=== PATIENT | female | born 2000 | race Caucasian/White ===

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

== ENCOUNTER 2018-01-14 00:14 | Emergency (ER) | payer OTHER ==
[2018-01-14 00:25] VITALS: RESP 16
--- NOTE | 2018-01-14 00:41 | ED ---
General Adult HPI - General Source: patient, RN notes reviewed, old records reviewed Mode of arrival: ambulatory Limitations: no limitations <Anthony Frank - Last Filed: 01/14/18 00:37> <Scottie Sears - Last Filed: 01/14/18 01:46> - General Chief complaint: ENT Stated complaint: Throat Pain Time Seen by Provider: 01/14/18 00:26 - History of Present Illness Initial comments: Chief complaint and history of present illness a 17-year-old female here with a friend. The patient reports she has a sore throat ongoing for 24 hours. Mild headache mild upset stomach. Also thinks she saw some white dots on her tonsils. She states she's had for 5 throat infections over the past year. No complaint of rash. Denies exposure to anyone with strep throat that she knows about. (Anthony Frank) - Related Data Previous Rx's Medication Instructions Recorded Ibuprofen 400 mg PO AC-TID PRN #30 tablet 04/25/17 Omeprazole [PriLOSEC] 20 mg PO AC-BRKFST #30 cap 04/25/17 Ibuprofen [Motrin] 600 mg PO Q6HR PRN #12 tab 11/25/17 Allergies Allergy/AdvReac Type Severity Reaction Status Date / Time morphine Allergy Rash/Hives Verified 01/14/18 00:24 cigarette smoke AdvReac Unknown Verified 01/14/18 00:24 Review of Systems ROS Other: All systems not noted in ROS Statement are negative. <Anthony Frank - Last Filed: 01/14/18 00:37> ROS Other: All systems not noted in ROS Statement are negative. <Scottie Sears - Last Filed: 01/14/18 01:46> ROS Statement: Those systems with pertinent positive or pertinent negative responses have been documented in the HPI. Review of systems; patient is complaining of sore throat for 1 day. Mild headache mild upset stomach. Denies nausea vomiting or rashes. All systems are reviewed. Past medical problems significant for 4 more sore throats his past year. The patient's also had a history of GERD, stomach ulcers. Surgeries include cholecystectomy and hernia repair she's had EGD 5 times. Medications as noted. ALLERGIES to morphine and cigarette smoke. Family history noncontributory. All systems reviewed (Anthony Frank) Past Medical History Past Medical History: GERD/Reflux Additional Past Medical History / Comment(s): stomach ulcers, UTI, kidney stones , kidney infection History of Any Multi-Drug Resistant Organisms: None Reported Past Surgical History: Cholecystectomy, Hernia Repair Additional Past Surgical History / Comment(s): EGD x5 Past Anesthesia/Blood Transfusion Reactions: No Reported Reaction Past Psychological History: ADD/ADHD, Anxiety Smoking Status: Never smoker Past Alcohol Use History: None Reported Past Drug Use History: None Reported - Past Family History Mother Family Medical History: Asthma, Hypertension Sister(s) Family Medical History: Thyroid Disorder Father Family Medical History: COPD, Coronary Artery Disease (CAD) <Anthony Frank - Last Filed: 01/14/18 00:37> General Exam Limitations: no limitations <ZacAnthony - Last Filed: 01/14/18 00:37> <KiankeishaScottie - Last Filed: 01/14/18 01:46> - General Exam Comments Initial Comments: General: The patient is awake and alert, in no distress, and does not appear acutely ill. Here with a complaint of sore throat. Vital signs shows temperature 99.4 pulse 85 respiratory rate 16 pulse ox 90% room air blood pressure 120/79 Eye: Pupils are equal, round and reactive to light, extra-ocular movements are intact ; there is normal conjunctiva bilaterally. No signs of icterus. Ears, nose, mouth and throat: There are moist mucous membranes and no oral lesions. Tonsils are mildly enlarged no exudate noted. No evidence of pharyngitis. No trismus. Neck: The neck is supple, there is no tenderness, no anterior cervical lymphadenopathy. Cardiovascular: There is a regular rate and rhythm. No murmur, rub or gallop is appreciated. Respiratory: Lungs are clear to auscultation, respirations are non-labored, breath sounds are equal. No wheezes, stridor, rales, or rhonchi. Gastrointestinal: Soft, non-distended, non-tender abdomen without masses or organomegaly noted. There is no rebound or guarding present. No CVA tenderness. Bowel sounds are unremarkable. Past history of chronic ovarian problems. Back: There is no tenderness to palpation in the midline. There is no obvious deformity. Musculoskeletal: Normal ROM, no tenderness, Neurological: No complaints of dizziness Skin: Skin is warm and dry and no rashes or lesions are noted. Psychiatric: Cooperative, (Anthony Frank) Vital Signs 01/14/18 00:22 Temperature 99.4 F Pulse Rate 85 Respiratory 16 Rate Blood Pressure 120/79 O2 Sat by Pulse 98 Oximetry Medical Decision Making <Anthony Frank - Last Filed: 01/14/18 00:37> <Scottie Sears - Last Filed: 01/14/18 01:46> - Medical Decision Making 17-year-old female with sore throat. Patient's care was signed out at shift change awaiting rapid strep. Rapid strep is negative, patient reevaluated, she is resting comfortably. She does have some erythematous enlarged tonsils. She states she's had at least 6 episodes similar to this in the past. Given the recurrent nature of her symptoms, she will be given ENT follow-up. Return with worsening or changing symptoms. (Scottie Sears) - Lab Data Lab Results 01/14/18 Range/Units 00:55 Group A Strep Rapid Negative (Negative) Disposition <Anthony Frank - Last Filed: 01/14/18 00:37> Is patient prescribed a controlled substance at d/c from ED?: No Time of Disposition: 01:46 <Scottie Sears - Last Filed: 01/14/18 01:46> Clinical Impression: Acute viral pharyngitis Disposition: HOME SELF-CARE Condition: Good Instructions: Strep Throat (ED) Referrals: None,Stated [Primary Care Provider] - 1-2 days Alton Dennison MD [STAFF PHYSICIAN] - 1-2 days
[2018-01-14 02:02] VITALS: BP 113/98; PULSE 82; TEMP 98.2
== END 2018-01-14 01:54 | disposition home or self-care (01) ==
LOC: EC 00:14
DX: J02.9 Acute pharyngitis, unspecified (principal); Z88.5 Allergy status to narcotic agent; Z91.09 Other allergy status, other than to drugs and biological substances
CPT/HCPCS: 87081; 87430; 99283

== ENCOUNTER 2018-01-19 17:17 | Emergency (ER) | payer OTHER ==
--- NOTE | 2018-01-19 19:05 | ED ---
ENT HPI - General Chief complaint: ENT Stated complaint: strep throat-revisit Time Seen by Provider: 01/19/18 18:14 Source: patient, RN notes reviewed, old records reviewed Mode of arrival: ambulatory Limitations: no limitations - History of Present Illness Initial comments: Patient is a 17-year-old female presents emergency department today with reevaluation for sore throat. Patient reports that she has been having symptoms for the past 2 weeks. She is evidence of prior pharyngitis. She states that she's had continued fevers and complains of pain. Patient states that she's had difficulty swallowing. Patient states that she's had no cough. She does complain of some upper respiratory congestion. Patient states that she has had her stand back. She try to follow-up with ENT for questioning that she needs her tonsils removed. The ENT would not accept a referral from her last ER visit one week ago. Patient denies any recent fever, chills, shortness of breath, chest pain, back pain, abdominal pain, nausea vomiting, numbness or tingling, dysuria or hematuria, constipation or diarrhea, headaches or visual changes, or any other current symptoms - Related Data Previous Rx's Medication Instructions Recorded Ibuprofen 400 mg PO AC-TID PRN #30 tablet 04/25/17 Omeprazole [PriLOSEC] 20 mg PO AC-BRKFST #30 cap 04/25/17 Ibuprofen [Motrin] 600 mg PO Q6HR PRN #12 tab 11/25/17 Acetaminophen Tab [Tylenol Tab] 500 mg PO Q6H #20 tablet 01/19/18 Azithromycin [Zithromax] 0 mg PO DIRECTED #6 tab 01/19/18 Ibuprofen [Motrin] 600 mg PO Q8HR PRN #20 tab 01/19/18 Allergies Allergy/AdvReac Type Severity Reaction Status Date / Time morphine Allergy Rash/Hives Verified 01/19/18 17:40 cigarette smoke AdvReac Unknown Verified 01/19/18 17:40 Review of Systems ROS Statement: Those systems with pertinent positive or pertinent negative responses have been documented in the HPI. ROS Other: All systems not noted in ROS Statement are negative. Past Medical History Past Medical History: GERD/Reflux Additional Past Medical History / Comment(s): stomach ulcers, UTI, kidney stones , kidney infection History of Any Multi-Drug Resistant Organisms: None Reported Past Surgical History: Cholecystectomy, Hernia Repair Additional Past Surgical History / Comment(s): EGD x5 Past Anesthesia/Blood Transfusion Reactions: No Reported Reaction Past Psychological History: ADD/ADHD, Anxiety Smoking Status: Never smoker Past Alcohol Use History: None Reported Past Drug Use History: None Reported - Past Family History Mother Family Medical History: Asthma, Hypertension Sister(s) Family Medical History: Thyroid Disorder Father Family Medical History: COPD, Coronary Artery Disease (CAD) General Exam - General Exam Comments Initial Comments: 17-year-old female. Alert and oriented. No acute distress. Limitations: no limitations General appearance: alert, in no apparent distress Head exam: Present: atraumatic, normocephalic, normal inspection Eye exam: Present: normal appearance, PERRL, EOMI. Absent: scleral icterus, conjunctival injection, periorbital swelling ENT exam: Present: normal exam, mucous membranes moist. Absent: normal oropharynx (Erythematous oropharynx. No significant exudates. Enlarged tonsils.) Neck exam: Present: normal inspection. Absent: tenderness, meningismus, lymphadenopathy Respiratory exam: Present: normal lung sounds bilaterally. Absent: respiratory distress, wheezes, rales, rhonchi, stridor Cardiovascular Exam: Present: regular rate, normal rhythm, normal heart sounds. Absent: systolic murmur, diastolic murmur, rubs, gallop, clicks Extremities exam: Present: normal inspection, full ROM, normal capillary refill. Absent: tenderness, pedal edema, joint swelling, calf tenderness Back exam: Present: normal inspection Neurological exam: Present: alert, oriented X3, CN II-XII intact Psychiatric exam: Present: normal affect, normal mood Course Vital Signs 01/19/18 01/19/18 17:38 19:15 Temperature 98.1 F Pulse Rate 92 Respiratory 18 Rate Blood Pressure 120/80 O2 Sat by Pulse 99 Oximetry Medical Decision Making - Medical Decision Making This is a 17-year-old female who presents returns today with for reevaluation pharyngitis. Patient is questions be . HCG obtained and was negative. At this time Patient does have erythematous oropharynx. We'll treat for bacterial pharyngitis with persistent symptoms over one week. Patient will have close follow-up with primary care physician. Given referral for ENT. Patient agrees treatment plan will comply. - Lab Data Lab Results 01/19/18 01/19/18 Range/Units 18:50 18:50 Urine Color Light Yellow Urine Appearance Cloudy H (Clear) Urine pH 5.5 (5.0-8.0) Ur Specific [place] 1.011 (1.001-1.035) Urine Protein Negative (Negative) Urine Glucose (UA) Negative (Negative) Urine Ketones Negative (Negative) Urine Blood Negative (Negative) Urine Nitrite Negative (Negative) Urine Bilirubin Negative (Negative) Urine Urobilinogen <2.0 (<2.0) mg/dL Ur Leukocyte Esterase Negative (Negative) Urine RBC 1 (0-5) /hpf Urine WBC 1 (0-5) /hpf Ur Squamous Epith Cells 11 H (0-4) /hpf Amorphous Sediment Rare H (None) /hpf Urine Bacteria Rare H (None) /hpf Urine Mucus Rare H (None) /hpf Urine HCG, Qual Not Detected (Not Detectd) Disposition Clinical Impression: Pharyngitis Disposition: HOME SELF-CARE Condition: Good Instructions: Pharyngitis (ED) Additional Instructions: Advised to rest, follow up with primary care physician. Return to emergency department if any alarming signs or symptoms occur. Prescriptions: Acetaminophen Tab [Tylenol Tab] 500 mg PO Q6H #20 tablet Azithromycin [Zithromax] 0 mg PO DIRECTED #6 tab Ibuprofen [Motrin] 600 mg PO Q8HR PRN #20 tab PRN Reason: Pain Is patient prescribed a controlled substance at d/c from ED?: No Referrals: Anthony Jiménez DO [Primary Care Provider] - 1-2 days Conner Ashby MD [STAFF PHYSICIAN] - 1-2 days Time of Disposition: 19:41
[2018-01-19 19:10] LABS: Amorphous Sediment,Urine Rare /hpf; Appearance,Urine Cloudy (Clear); Bacteria,Urine Rare /hpf; Bilirubin,Urine Negative (Negative); Blood,Urine Negative (Negative); Color,Urine Light Yellow; Glucose,Urine (UA) Negative (Negative); Ketones,Urine Negative (Negative); Leukocyte Esterase,Urine Negative (Negative); Mucus,Urine Rare /hpf; Nitrite,Urine Negative (Negative); PH, Urine 5.5 (5.0-8.0); Protein,Urine Negative (Negative); RBC,Urine 1 /hpf (0-5); Specific Gravity,Urine 1.011 (1.001-1.035); Squamous Epithelial Cell,Urine 11 /hpf (0-4); Urobilinogen,Urine <2.0 mg/dL (<2.0); WBC,Urine 1 /hpf (0-5)
[2018-01-19 19:15] VITALS: TEMP 98.1
[2018-01-19 20:20] VITALS: BP 127/70; PULSE 75; RESP 16
== END 2018-01-19 20:15 | disposition home or self-care (01) ==
LOC: EC 17:17
DX: J02.9 Acute pharyngitis, unspecified (principal); Z32.02 Encounter for pregnancy test, result negative; Z88.5 Allergy status to narcotic agent; Z91.048 Other nonmedicinal substance allergy status
CPT/HCPCS: 81001; 81025; 99283

== ENCOUNTER → 2018-02-27 | Outpatient (CLI) | payer OTHER ==
--- NOTE | 2018-02-27 15:37 | XR ---
Bilateral knees HISTORY: Bilateral knee pain 3 views of each knee submitted on a total of 5 images. Bone mineralization, joint spaces and alignment are maintained. No fracture or dislocation, no effusi on. IMPRESSION: No acute abnormality. Consider knee MRI.
== END ==
LOC: RADXRMAIN 13:23
PROVIDERS: ATTEND Family Medicine
DX: M25.561 Pain in right knee (principal); M25.562 Pain in left knee

== ENCOUNTER 2018-05-20 11:42 | Emergency (ER) | payer OTHER ==
[2018-05-20] MEDS ORDERED: SODIUM CHLORIDE 0.9% 1,000 ML IV STA (12:13)
[2018-05-20] MEDS ORDERED: SODIUM CHLORIDE 0.9% 500 ML 500 ML IV STA (13:06)
[2018-05-20] MEDS ORDERED: ACETAMINOPHEN TAB 325 MG TAB PO STA (13:06)
[2018-05-20 13:29] LABS: Appearance,Urine Cloudy (Clear); Bacteria,Urine Rare /hpf; Bilirubin,Urine Negative (Negative); Blood,Urine Negative (Negative); Color,Urine Yellow; Glucose,Urine (UA) Negative (Negative); Ketones,Urine Negative (Negative); Leukocyte Esterase,Urine Small (Negative); Mucus,Urine Rare /hpf; Nitrite,Urine Negative (Negative); Protein,Urine Trace (Negative); Specific Gravity,Urine 1.028 (1.001-1.035); Squamous Epithelial Cell,Urine 12 /hpf (0-4); Urobilinogen,Urine <2.0 mg/dL (<2.0)
[2018-05-20] MEDS ORDERED: ONDANSETRON 4 MG/2 ML VIAL IVP STA (13:38)
--- NOTE | 2018-05-20 13:59 | XR ---
EXAMINATION TYPE: XR KUB , 2 VIEWS DATE OF EXAM ORDERED: 05/20/2018 HISTORY: Pain. COMPARISON: Previous study dated 04/19/2017. FINDINGS: Lung bases are clear. Within the abdomen, the abdominal gas pattern is normal. There is no evidence of obstruction or free air. Numerous small air-fluid levels are seen. No unusual calcifications are seen. IMPRESSION: FINDINGS MOST CONSISTENT WITH MILD ILEUS.
[2018-05-20] MEDS ORDERED: ONDANSETRON ODT 4 MG TAB PO STA (14:03)
[2018-05-20] MEDS ORDERED: ONDANSETRON 4 MG ODT STARTER PACK 2 TAB BTL PO STA (14:07)
[2018-05-20 14:08] VITALS: BP 104/63; PULSE 92; RESP 16; TEMP 97.6
--- NOTE | 2018-05-20 14:12 | ED ---
General Adult HPI - General Chief complaint: Nausea/Vomiting/Diarrhea Stated complaint: Vomiting Time Seen by Provider: 05/20/18 12:11 Source: patient, RN notes reviewed, old records reviewed Mode of arrival: ambulatory Limitations: no limitations - History of Present Illness Initial comments: 17-year-old female patient with no pertinent past medical history presents to ED with approximately 16 hours of nausea vomiting and diarrhea. Patient also reports subjective fevers as chills as well as some mild myalgias. Patient states that she has had some mild abdominal cramping after vomiting however denies any abdominal pain. Patient denies any chest pain or shortness of breath. Patient denies any other complaints. Systemic: Pt denies fatigue, rash. Pt denies weakness, night sweats, weight loss. Neuro: Pt denies headache, visual disturbances, syncope or pre-syncope. HEENT: Pt denies ocular discharge or irritation, otalgia, rhinorrhea, pharyngit is or notable lymphadenopathy. Cardiopulmonary: Pt denies chest pain, SOB, heart palpitations, dyspnea on exertion. Abdominal/GI: Pt denies abdominal pain, n/v/d. : Pt denies dysuria, burning w/ urination, frequency/urgency. Denies new onset urinary or bowel incontinence. MSK: Pt denies myalgia, loss of strength or function in extremities. Neuro: Pt denies new onset weakness, paresthesias. - Related Data Previous Rx's Medication Instructions Recorded Ibuprofen 400 mg PO AC-TID PRN #30 tablet 04/25/17 Omeprazole [PriLOSEC] 20 mg PO AC-BRKFST #30 cap 04/25/17 Ibuprofen [Motrin] 600 mg PO Q6HR PRN #12 tab 11/25/17 Acetaminophen Tab [Tylenol Tab] 500 mg PO Q6H #20 tablet 01/19/18 Azithromycin [Zithromax] 0 mg PO DIRECTED #6 tab 01/19/18 Ibuprofen [Motrin] 600 mg PO Q8HR PRN #20 tab 01/19/18 Ondansetron Odt [Zofran ODT] 4 mg PO Q8HR PRN #10 tab 05/20/18 Allergies Allergy/AdvReac Type Severity Reaction Status Date / Time morphine Allergy Rash/Hives Verified 05/20/18 12:05 cigarette smoke AdvReac Unknown Verified 05/20/18 12:05 Review of Systems ROS Statement: Those systems with pertinent positive or pertinent negative responses have been documented in the HPI. ROS Other: All systems not noted in ROS Statement are negative. Past Medical History Past Medical History: GERD/Reflux Additional Past Medical History / Comment(s): stomach ulcers, UTI, kidney stones, kidney infection History of Any Multi-Drug Resistant Organisms: None Reported Past Surgical History: Cholecystectomy, Hernia Repair Additional Past Surgical History / Comment(s): EGD x5 Past Anesthesia/Blood Transfusion Reactions: No Reported Reaction Past Psychological History: ADD/ADHD, Anxiety Smoking Status: Never smoker Past Alcohol Use History: None Reported Past Drug Use History: None Reported - Past Family History Mother Family Medical History: Asthma, Hypertension Sister(s) Family Medical History: Thyroid Disorder Father Family Medical History: COPD, Coronary Artery Disease (CAD) General Exam - General Exam Comments Initial Comments: Constitutional: NAD, AOX3, Pt has pleasant affect. HEENT: NC/AT, trachea midline, neck supple, no lymphadenopathy. Posterior pharynx non erythematous, without exudates. External ears appear normal, without discharge. Mucous membranes moist. Eyes PERRLA, EOM intact. There is no scleral icterus. No pallor noted. Cardiopulmonary: RRR, no murmurs, rubs or gallops, no JVD noted. Lungs CTAB in anterior and posterior nevarez. No peripheral edema. Abdominal exam: Abdomen soft and non-distended. Abdomen non-tender to palpation in all 4 quadrants. Bowel sounds active in LLQ. No hepatosplenomegaly. No ecchymosis Neuro: CN II-XII grossly intact. No nuchal rigidity. MSK: No posterior calf tenderness bilaterally, homans sign negative bilaterally. Posterior tibialis and radial pulse +2 bilaterally. Sensation intact in upper and lower extremities. Full active ROM in upper and lower extremities, 5/5 stregnth. Limitations: no limitations Course Vital Signs 05/20/18 12:05 Temperature 98.7 F Pulse Rate 110 H Respiratory 18 Rate Blood Pressure 109/71 O2 Sat by Pulse 98 Oximetry Medical Decision Making - Medical Decision Making 17-year-old female patient with no pertinent past medical history presents to ED with approximately 16 hours of nausea vomiting and diarrhea. Patient also reports subjective fevers as chills as well as some mild myalgias. Patient states that she has had some mild abdominal cramping after vomiting however denies any abdominal pain. Patient denies any chest pain or shortness of breath. Patient denies any other complaints. Patient vital signs initially displayed mild tachycardia, resolved after fluid administration. Physical exam did not display acute pathology. Abdomen nontender to palpation. UA c ontaminated, no impressive. Influenza negative. KUB displayed numerous small air-fluid levels possibly consistent with mild ileus. Patient having bowel movements, passing flatus. Patient has not had any active vomiting ED. Patient likely has viral gastroenteritis-like syndrome. Patient discharged with Zofran. Patient will follow up with primary care provider in 1-2 days. Patient return to ER physician worsens in any way. Return parameters discussed, patient verbalized understanding. Csae discussed with Dr. Mattson. - Lab Data Lab Results 05/20/18 05/20/18 05/20/18 Range/Units 12:28 13:17 13:17 Urine Color Yellow Urine Appearance Cloudy H (Clear) Urine pH 8.0 (5.0-8.0) Ur Specific [place] 1.028 (1.001-1.035) Urine Protein Trace H (Negative) Urine Glucose (UA) Negative (Negative) Urine Ketones Negative (Negative) Urine Blood Negative (Negative) Urine Nitrite Negative (Negative) Urine Bilirubin Negative (Negative) Urine Urobilinogen <2.0 (<2.0) mg/dL Ur Leukocyte Esterase Small H (Negative) Urine WBC 2 (0-5) /hpf Ur Squamous Epith Cells 12 H (0-4) /hpf Urine Bacteria Rare H (None) /hpf Urine Mucus Rare H (None) /hpf Urine HCG, Qual Not Detected (Not Detectd) Influenza Type A RNA Not Detected (Not Detectd) Influenza Type B (PCR) Not Detected (Not Detectd) Disposition Clinical Impression: Nausea vomiting and diarrhea Disposition: HOME SELF-CARE Condition: Stable Instructions (If sedation given, give patient instructions): Acute Nausea and Vomiting (ED), Acute Diarrhea (ED), Nutrition Tips for Relief of Diarrhea (ED) Additional Instructions: Patient to adhere to previously discussed treatment plan and will take medication(s) as directed. Patient to follow up with PCP in 1-2 days. Patient to return to ED if symptoms do not improve. Please take Zofran only as needed for nausea. May take one pill every 8 hours. Please continue sufficient amount of oral fluid intake. Please follow-up with primary care provider in 1-2 days. Please return to ER if condition worsens in any way. Prescriptions: Ondansetron Odt [Zofran ODT] 4 mg PO Q8HR PRN #10 tab PRN Reason: Nausea Is patient prescribed a controlled substance at d/c from ED?: No Referrals: Anthony Jiménez DO [Primary Care Provider] - 1-2 days
== END 2018-05-20 14:21 | disposition home or self-care (01) ==
LOC: EC 11:42
DX: R11.2 Nausea with vomiting, unspecified (principal); R19.7 Diarrhea, unspecified; R50.9 Fever, unspecified; M79.10 Myalgia, unspecified site; R10.9 Unspecified abdominal pain; Z87.442 Personal history of urinary calculi; Z90.49 Acquired absence of other specified parts of digestive tract; Z88.5 Allergy status to narcotic agent; Z91.048 Other nonmedicinal substance allergy status; Z53.8 Procedure and treatment not carried out for other reasons
CPT/HCPCS: 81001; 81025; 87502; 74018; 99284; S0119

== ENCOUNTER 2018-05-23 19:30 | Emergency (ER) | payer OTHER ==
[2018-05-23] MEDS ORDERED: SODIUM CHLORIDE 0.9% 1,000 ML IV STA (19:38)
[2018-05-23] MEDS ORDERED: ONDANSETRON 4 MG/2 ML VIAL IVP STA (19:54)
[2018-05-23 20:10] LABS: Basophils % (A) 0 %; Eosinophils # (A) 0.3 k/uL (0-0.7); Eosinophils % (A) 4 %; HCT 37.5 % (34.0-46.0); HGB 12.8 gm/dL (11.4-16.0); Lymphocytes % (A) 21 %; MCH 28.9 pg (25.0-35.0); MCHC 34.1 g/dL (31.0-37.0); MCV 84.6 fL (80.0-100.0); Monocytes # (A) 0.4 k/uL (0-1.0); Monocytes % (A) 5 %; Neutrophils # (A) 6.6 k/uL (1.3-7.7); Neutrophils % (A) 69 %; Platelet Count 291 k/uL (150-450); RBC 4.43 m/uL (3.80-5.40); RDW 12.8 % (11.5-15.5); WBC 9.6 k/uL (4.0-11.0)
[2018-05-23 20:22] LABS: ALT 27 U/L (9-52); AST 44 U/L (14-36); Albumin 4.9 g/dL (3.5-5.0); Alkaline Phosphatase 51 U/L (38-126); Anion Gap 12 mmol/L; Blood Urea Nitrogen 13 mg/dL (7-17); Calcium 9.9 mg/dL (8.4-10.2); Carbon Dioxide 22 mmol/L (22-30); Chloride 108 mmol/L (98-107); Glucose 78 mg/dL (74-99); Sodium 142 mmol/L (137-145); Total Bilirubin 0.8 mg/dL (0.2-1.3); Total Protein 8.1 g/dL (6.3-8.2)
[2018-05-23 20:24] LABS: Potassium 4.3 mmol/L (3.5-5.1)
[2018-05-23 20:30] LABS: Appearance,Urine Cloudy (Clear); Bacteria,Urine Rare /hpf; Bilirubin,Urine Negative (Negative); Blood,Urine Trace (Negative); Calcium Oxalate Crystals,Urine Moderate /hpf; Color,Urine Yellow; Glucose,Urine (UA) Negative (Negative); Ketones,Urine Negative (Negative); Leukocyte Esterase,Urine Negative (Negative); Mucus,Urine Occasional /hpf; Nitrite,Urine Negative (Negative); PH, Urine 5.5 (5.0-8.0); Protein,Urine Trace (Negative); RBC,Urine 2 /hpf (0-5); Specific Gravity,Urine 1.031 (1.001-1.035); Squamous Epithelial Cell,Urine 4 /hpf (0-4); Urobilinogen,Urine <2.0 mg/dL (<2.0)
--- NOTE | 2018-05-23 20:47 | XR ---
EXAMINATION TYPE: XR KUB, 2 upright views DATE OF EXAM: 05/23/2018 COMPARISON: 05/20/2018 HISTORY: Pain TECHNIQUE: 2 upright views FINDINGS: Visualized lung bases and pleural spaces are negative. No pneumoperitoneum or pneumatosis. There is no bowel obstruction. There are are multifocal gas fluid levels in nondilated small bowel loops in the right mid abdomen. G as is seen throughout the colon. No acute skeletal or soft tissue findings. IMPRESSION: No definite acute process.
--- NOTE | 2018-05-23 21:44 | CT ---
EXAMINATION TYPE: CT abdomen pelvis w con DATE OF EXAM: 05/23/2018 COMPARISON: 319 18th HISTORY: abdominal pain CT DLP: 634.7 mGycm Automated exposure control for dose reduction was used. TECHNIQUE: Helical acquisition of images was performed from the lung bases through the pelvis. CONTRAST: Performed without Oral Contrast and with IV Contrast, patient injected with 100 mL of Isovu e 300. FINDINGS: LUNG BASES: No significant abnormality is appreciated. LIVER/GB: No significant abnormality is appreciated. PANCREAS: No significant abnormality is seen. SPLEEN: No significant abnormality is seen. No splenomegaly. ADRENALS: No significant abnormality is seen. KIDNEYS: No significant abnormality is seen. PERITONEAL CAVITY: There is a mild/moderate volume of pelvic peritoneal fluid. RETROPERITONEAL ADENOPATHY: Innumerable subcentimeter mesenteric lymph nodes noted. REPRODUCTIVE ORGANS: No significant abnormality is seen URINARY BLADDER: No significant abnormality is seen. PELVIC ADENOPATHY: Innumerable subcentimeter mesenteric lymph nodes noted. OSSEOUS STRUCTURES: No significant abnormality is seen. BOWEL: No significant abnormality is seen. OTHER: No acute vascular finding. BETA HCG STATUS: Unknown. IMPRESSION: 1. MILD/MODERATE PERITONEAL FLUID WITHIN THE DEEP PELVIS. 2. Innumerable subcentimeter lymph nodes throughout the abdominal pelvic mesentery.
--- NOTE | 2018-05-23 22:09 | ED ---
General Adult HPI - General Chief complaint: Nausea/Vomiting/Diarrhea Stated complaint: Abd Pain Time Seen by Provider: 05/23/18 19:37 Source: patient, RN notes reviewed, old records reviewed Mode of arrival: ambulatory Limitations: no limitations - History of Present Illness Initial comments: 17-year-old female patient was initially seen here 3 days ago for nausea vomiting diarrhea presents to ED for same symptoms. Patient reports that she has had some waxing and waning nausea vomiting throughout the day, as well as some waxing and waning diarrhea and some mild periumbilical abdominal pain. Patient denies any other complaints. Patient states that she is not . Patient recently had a negative hCG at prior appointment and states that she has not been sexually active. Patient denies any adnexal pain. Patient denies any vaginal bleeding. Systemic: Pt denies fatigue, myalgia, fever/chills, rash. Pt denies weakness, night sweats, weight loss. Neuro: Pt denies headache, visual disturbances, syncope or pre-syncope. HEENT: Pt denies ocular discharge or irritation, otalgia, rhinorrhea, pharyngitis or notable lymphadenopathy. Cardiopulmonary: Pt denies chest pain, SOB, heart palpitations, dyspnea on exertion. : Pt denies dysuria, burning w/ urination, frequency/urgency. Denies new onset urinary or bowel incontinence. MSK: Pt denies myalgia, loss of strength or function in extremities. Neuro: Pt denies new onset weakness, paresthesias. - Related Data Previous Rx's Medication Instructions Recorded Ibuprofen 400 mg PO AC-TID PRN #30 tablet 04/25/17 Omeprazole [PriLOSEC] 20 mg PO AC-BRKFST #30 cap 04/25/17 Ibuprofen [Motrin] 600 mg PO Q6HR PRN #12 tab 11/25/17 Acetaminophen Tab [Tylenol Tab] 500 mg PO Q6H #20 tablet 01/19/18 Azithromycin [Zithromax] 0 mg PO DIRECTED #6 tab 01/19/18 Ibuprofen [Motrin] 600 mg PO Q8HR PRN #20 tab 01/19/18 Ondansetron Odt [Zofran ODT] 4 mg PO Q8HR PRN #10 tab 05/20/18 Allergies Allergy/AdvReac Type Severity Reaction Status Date / Time morphine Allergy Rash/Hives Verified 05/23/18 19:35 cigarette smoke AdvReac Unknown Verified 05/23/18 19:35 Review of Systems ROS Statement: Those systems with pertinent positive or pertinent negative responses have been documented in the HPI. ROS Other: All systems not noted in ROS Statement are negative. Past Medical History Past Medical History: GERD/Reflux Additional Past Medical History / Comment(s): stomach ulcers, UTI, kidney stones, kidney infection History of Any Multi-Drug Resistant Organisms: None Reported Past Surgical History: Cholecystectomy, Hernia Repair Additional Past Surgical History / Comment(s): EGD x5 Past Anesthesia/Blood Transfusion Reactions: No Reported Reaction Past Psychological History: ADD/ADHD, Anxiety Smoking Status: Never smoker Past Alcohol Use History: None Reported Past Drug Use History: None Reported - Past Family History Mother Family Medical History: Asthma, Hypertension Sister(s) Family Medical History: Thyroid Disorder Father Family Medical History: COPD, Coronary Artery Disease (CAD) General Exam - General Exam Comments Initial Comments: Constitutional: NAD, AOX3, Pt has pleasant affect. HEENT: NC/AT, trachea midline, neck supple, no lymphadenopathy. Posterior pharynx non erythematous, without exudates. External ears appear normal, without discharge. Mucous membranes moist. Eyes PERRLA, EOM intact. There is no scleral icterus. No pallor noted. Cardiopulmonary: RRR, no murmurs, rubs or gallops, no JVD noted. Lungs CTAB in anterior and posterior nevarez. No peripheral edema. Abdominal exam: Abdomen soft and non-distended. Hodan umbilical region mildly tender to palpation, no guarding, no rigidity, rebound tenderness. No other epi of abdominal tenderness. Bowel sounds active in LLQ. No hepatosplenomegaly. No ecchymosis Neuro: CN II-XII grossly intact. No nuchal rigidity. MSK: No posterior calf tenderness bilaterally, homans sign negative bilaterally. Posterior tibialis and radial pulse +2 bilaterally. Sensation intact in upper and lower extremities. Full active ROM in upper and lower extremities, 5/5 stregnth. Limitations: no limitations Course Vital Signs 05/23/18 19:33 Temperature 98.5 F Pulse Rate 90 Respiratory 18 Rate Blood Pressure 118/79 O2 Sat by Pulse 98 Oximetry Medical Decision Making - Medical Decision Making 17-year-old female patient was initially seen here 3 days ago for nausea vomiting diarrhea presents to ED for same symptoms. Patient reports that she has had some waxing and waning nausea vomiting throughout the day, as well as some waxing and waning diarrhea and some mild periumbilical abdominal pain. Patient denies any other complaints. Patient states that she is not . Patient recently had a negative hCG at prior appointment and states that she has not been sexually active. Patient denies any adnexal pain. Patient denies any vaginal bleeding. Patient vital signs stable, afebrile. Physical exam displaye d: Abdomen soft and non-distended. Hodan umbilical region mildly tender to palpation, no guarding, no rigidity, rebound tenderness. No other epi of abdominal tenderness. Bowel sounds active in LLQ. No hepatosplenomegaly. No ecchymosis. Laboratory investigations revealed nonpresence of CBC, CMP, UA. Hcg negative. CT of abdomen displayed mild to moderate amount of fluid in pelvis. Etiology of n/v/d likely gastroenteritis like syndorme. Pt improved with zofran IVF. Pt will be dischaged. PT will continue to encourage po intake of fluid. Pt will use zofran as needed for nausea. Pt will f/u with PCP tomorrow for continued evaluation. Case discussed with Dr. Davenport. - Lab Data Result diagrams: 05/23/18 19:51 05/23/18 19:51 Lab Results 05/23/18 05/23/18 05/23/18 Range/Units 19:51 19:51 20:20 WBC 9.6 (4.0-11.0) k/uL RBC 4.43 (3.80-5.40) m/uL Hgb 12.8 (11.4-16.0) gm/dL Hct 37.5 (34.0-46.0) % MCV 84.6 (80.0-100.0) fL MCH 28.9 (25.0-35.0) pg MCHC 34.1 (31.0-37.0) g/dL RDW 12.8 (11.5-15.5) % Plt Count 291 (150-450) k/uL Neutrophils % 69 % Lymphocytes % 21 % Monocytes % 5 % Eosinophils % 4 % Basophils % 0 % Neutrophils # 6.6 (1.3-7.7) k/uL Lymphocytes # 2.0 (1.0-4.8) k/uL Monocytes # 0.4 (0-1.0) k/uL Eosinophils # 0.3 (0-0.7) k/uL Basophils # 0.0 (0-0.2) k/uL Sodium 142 (137-145) mmol/L Potassium 4.3 (3.5-5.1) mmol/L Chloride 108 H (98-107) mmol/L Carbon Dioxide 22 (22-30) mmol/L Anion Gap 12 mmol/L BUN 13 (7-17) mg/dL Creatinine 0.70 (0.52-1.04) mg/dL Est GFR (CKD-EPI)AfAm >90 (>60 ml/min/1.73 sqM) Est GFR (CKD-EPI)NonAf >90 (>60 ml/min/1.73 sqM) Glucose 78 (74-99) mg/dL Calcium 9.9 (8.4-10.2) mg/dL Total Bilirubin 0.8 (0.2-1.3) mg/dL AST 44 H (14-36) U/L ALT 27 (9-52) U/L Alkaline Phosphatase 51 (38-126) U/L Total Protein 8.1 (6.3-8.2) g/dL Albumin 4.9 (3.5-5.0) g/dL Urine Color Yellow Urine Appearance Cloudy H (Clear) Urine pH 5.5 (5.0-8.0) Ur Specific [place] 1.031 (1.001-1.035) Urine Protein Trace H (Negative) Urine Glucose (UA) Negative (Negative) Urine Ketones Negative (Negative) Urine Blood Trace H (Negative) Urine Nitrite Negative (Negative) Urine Bilirubin Negative (Negative) Urine Urobilinogen <2.0 (<2.0) mg/dL Ur Leukocyte Esterase Negative (Negative) Urine RBC 2 (0-5) /hpf Urine WBC 5 (0-5) /hpf Ur Squamous Epith Cells 4 (0-4) /hpf Calcium Oxalate Crystal Moderate H (None) /hpf Urine Bacteria Rare H (None) /hpf Urine Mucus Occasional H (None) /hpf Urine HCG, Qual (Not Detectd) 05/23/18 Range/Units 20:20 WBC (4.0-11.0) k/uL RBC (3.80-5.40) m/uL Hgb (11.4-16.0) gm/dL Hct (34.0-46.0) % MCV (80.0-100.0) fL MCH (25.0-35.0) pg MCHC (31.0-37.0) g/dL RDW (11.5-15.5) % Plt Count (150-450) k/uL Neutrophils % % Lymphocytes % % Monocytes % % Eosinophils % % Basophils % % Neutrophils # (1.3-7.7) k/uL Lymphocytes # (1.0-4.8) k/uL Monocytes # (0-1.0) k/uL Eosinophils # (0-0.7) k/uL Basophils # (0-0.2) k/uL Sodium (137-145) mmol/L Potassium (3.5-5.1) mmol/L Chloride (98-107) mmol/L Carbon Dioxide (22-30) mmol/L Anion Gap mmol/L BUN (7-17) mg/dL Creatinine (0.52-1.04) mg/dL Est GFR (CKD-EPI)AfAm (>60 ml/min/1.73 sqM) Est GFR (CKD-EPI)NonAf (>60 ml/min/1.73 sqM) Glucose (74-99) mg/dL Calcium (8.4-10.2) mg/dL Total Bilirubin (0.2-1.3) mg/dL AST (14-36) U/L ALT (9-52) U/L Alkaline Phosphatase (38-126) U/L Total Protein (6.3-8.2) g/dL Albumin (3.5-5.0) g/dL Urine Color Urine Appearance (Clear) Urine pH (5.0-8.0) Ur Specific [place] (1.001-1.035) Urine Protein (Negative) Urine Glucose (UA) (Negative) Urine Ketones (Negative) Urine Blood (Negative) Urine Nitrite (Negative) Urine Bilirubin (Negative) Urine Urobilinogen (<2.0) mg/dL Ur Leukocyte Esterase (Negative) Urine RBC (0-5) /hpf Urine WBC (0-5) /hpf Ur Squamous Epith Cells (0-4) /hpf Calcium Oxalate Crystal (None) /hpf Urine Bacteria (None) /hpf Urine Mucus (None) /hpf Urine HCG, Qual Not Detected (Not Detectd) Disposition Clinical Impression: Nausea vomiting and diarrhea Disposition: HOME SELF-CARE Condition: Stable Instructions (If sedation given, give patient instructions): Acute Nausea and Vomiting (ED), Acute Diarrhea (ED) Additional Instructions: Patient to adhere to previously discussed treatment plan and will take medication(s) as directed. Patient to follow up with PCP in 1-2 days. Patient to return to ED if symptoms do not improve. Please follow-up with primary care provider tomorrow. Please use Zofran as needed for nausea. Is patient prescribed a controlled substance at d/c from ED?: No Referrals: Anthony Jiménez DO [Primary Care Provider] - 1-2 days
[2018-05-23 22:31] VITALS: BP 125/85; PULSE 85; RESP 14; TEMP 97.9
== END 2018-05-23 23:06 | disposition home or self-care (01) ==
LOC: EC 19:30
DX: R11.2 Nausea with vomiting, unspecified (principal); R19.7 Diarrhea, unspecified; R10.33 Periumbilical pain; Z87.19 Personal history of other diseases of the digestive system; Z87.442 Personal history of urinary calculi; Z87.440 Personal history of urinary (tract) infections; Z90.49 Acquired absence of other specified parts of digestive tract; Z98.890 Other specified postprocedural states; Z88.5 Allergy status to narcotic agent; Z91.048 Other nonmedicinal substance allergy status
CPT/HCPCS: 99285; 96374; 96361; 36415; 80053; 85025; 81001; 81025; 74018; 74177; J2405; Q9967

== ENCOUNTER 2019-09-08 03:15 | Emergency (ER) | payer OTHER ==
--- NOTE | 2019-09-08 03:29 | ED ---
Back Pain HPI - General Chief Complaint: Back Pain/Injury Stated Complaint: Rt side abd pain Time Seen by Provider: 09/08/19 03:29 Source: patient Limitations: no limitations - History of Present Illness Initial Comments: Loretta is a previously healthy 18-year-old female who presents ER today for evaluation of sudden onset of right lower quadrant abdominal and right-sided flank pain. Patient reports she was in her usual state of health when she went to bed yesterday, she woke suddenly with this pain. Pain is in her right flank radiating to her right pelvis. No associated dysuria or hematuria. No change in bowel or bladder habits. Some nausea with the pain but no vomiting. Patient is status post cholecystectomy years ago. - Related Data Previous Rx's Medication Instructions Recorded Ibuprofen 400 mg PO AC-TID PRN #30 tablet 04/25/17 Omeprazole [PriLOSEC] 20 mg PO AC-BRKFST #30 cap 04/25/17 Ibuprofen [Motrin] 600 mg PO Q6HR PRN #12 tab 11/25/17 Acetaminophen Tab [Tylenol Tab] 500 mg PO Q6H #20 tablet 01/19/18 Azithromycin [Zithromax] 0 mg PO DIRECTED #6 tab 01/19/18 Ibuprofen [Motrin] 600 mg PO Q8HR PRN #20 tab 01/19/18 Ondansetron Odt [Zofran ODT] 4 mg PO Q8HR PRN #10 tab 05/20/18 HYDROcodone/APAP 5-325MG [[place] 1 tab PO Q6HR PRN 3 Days #8 tab 09/08/19 5-325] Tamsulosin [Flomax] 0.4 mg PO DAILY #7 cap 09/08/19 Allergies Allergy/AdvReac Type Severity Reaction Status Date / Time morphine Allergy Rash/Hives Verified 09/08/19 03:20 cigarette smoke AdvReac Unknown Verified 09/08/19 03:20 Review of Systems ROS Statement: Those systems with pertinent positive or pertinent negative responses have been documented in the HPI. ROS Other: All systems not noted in ROS Statement are negative. Past Medical History Past Medical History: GERD/Reflux Additional Past Medical History / Comment(s): stomach ulcers, UTI, kidney stones, kidney infection History of Any Multi-Drug Resistant Organisms: None Reported Past Surgical History: Cholecystectomy, Hernia Repair Additional Past Surgical History / Comment(s): EGD x5 Past Anesthesia/Blood Transfusion Reactions: No Reported Reaction Past Psychological History: ADD/ADHD, Anxiety Smoking Status: Never smoker Past Alcohol Use History: None Reported Past Drug Use History: None Reported - Past Family History Mother Family Medical History: Asthma, Hypertension Sister(s) Family Medical History: Thyroid Disorder Father Family Medical History: COPD, Coronary Artery Disease (CAD) General Exam - General Exam Comments Initial Comments: Physical Exam GENERAL: Patient is well-developed and well-nourished. Patient is nontoxic and well-hydrated and is in no distress. HENT: Normocephalic, Atraumatic. EYES: PERRL, EOMI PULMONARY: Unlabored respirations. CARDIOVASCULAR: RRR Warm and well perfused extremities ABDOMEN: Abdomen is soft, tenderness to palpation in the right lower quadrant, no peritoneal signs, no rebound, no guarding Tenderness to percussion of the right flank SKIN: No rashes or bruising : Deferred NEUROLOGIC: Alert and oriented Normal speech Normal gait MUSCULOSKELETAL: Moving all extremities with no apparent injury PSYCHIATRIC: No SI/HI Limitations: no limitations Course Vital Signs 09/08/19 09/08/19 03:19 05:45 Temperature 98.5 F 98.8 F Pulse Rate 103 H 74 Respiratory 20 18 Rate Blood Pressure 135/91 116/73 O2 Sat by Pulse 100 98 Oximetry Medical Decision Making - Medical Decision Making She was seen and evaluated history is obtained from patient 18-year-old female with right lower quadrant abdominal pain, no lower urinary tract symptoms Labs are relatively unremarkable urine did have some hematuria but also gross contamination with skin mark Patient had no improvement in her discomfort after Toradol additional medications were ordered and patient was agreeable to computed tomography scan to evaluate for possible appendicitis Computed tomography scan resulted with only evidence of a small ureteral calculus, patient reported significant improvement in her pain after morphine. Patient comfortable plan for discharge home with supportive care. - Lab Data Result diagrams: 09/08/19 04:07 09/08/19 04:07 Lab Results 09/08/19 09/08/19 09/08/19 Range/Units 03:41 03:41 04:07 WBC 9.2 (4.0-11.0) k/uL RBC 4.10 (3.80-5.40) m/uL Hgb 11.8 (11.4-16.0) gm/dL Hct 34.6 (34.0-46.0) % MCV 84.4 (80.0-100.0) fL MCH 28.7 (25.0-35.0) pg MCHC 34.0 (31.0-37.0) g/dL RDW 12.8 (11.5-15.5) % Plt Count 264 (150-450) k/uL Neutrophils % 57 % Lymphocytes % 33 % Monocytes % 6 % Eosinophils % 2 % Basophils % 1 % Neutrophils # 5.3 (1.3-7.7) k/uL Lymphocytes # 3.0 (1.0-4.8) k/uL Monocytes # 0.6 (0-1.0) k/uL Eosinophils # 0.2 (0-0.7) k/uL Basophils # 0.1 (0-0.2) k/uL Sodium (137-145) mmol/L Potassium (3.5-5.1) mmol/L Chloride (98-107) mmol/L Carbon Dioxide (22-30) mmol/L Anion Gap mmol/L BUN (7-17) mg/dL Creatinine (0.52-1.04) mg/dL Est GFR (CKD-EPI)AfAm (>60 ml/min/1.73 sqM) Est GFR (CKD-EPI)NonAf (>60 ml/min/1.73 sqM) Glucose (74-99) mg/dL Calcium (8.4-10.2) mg/dL Total Bilirubin (0.2-1.3) mg/dL AST (14-36) U/L ALT (4-34) U/L Alkaline Phosphatase (38-126) U/L C-Reactive Protein (<10.0) mg/L Total Protein (6.3-8.2) g/dL Albumin (3.5-5.0) g/dL Urine Color Yellow Urine Appearance Turbid H (Clear) Urine pH 6.5 (5.0-8.0) Ur Specific [place] 1.020 (1.001-1.035) Urine Protein Trace H (Negative) Urine Glucose (UA) Negative (Negative) Urine Ketones Negative (Negative) Urine Blood Small H (Negative) Urine Nitrite Negative (Negative) Urine Bilirubin Negative (Negative) Urine Urobilinogen <2.0 (<2.0) mg/dL Ur Leukocyte Esterase Large H (Negative) Urine RBC 13 H (0-5) /hpf Urine WBC 9 H (0-5) /hpf Ur Squamous Epith Cells 37 H (0-4) /hpf Urine Bacteria Rare H (None) /hpf Urine Mucus Rare H (None) /hpf Urine HCG, Qual Not Detected (Not Detectd) 09/08/19 Range/Units 04:07 WBC (4.0-11.0) k/uL RBC (3.80-5.40) m/uL Hgb (11.4-16.0) gm/dL Hct (34.0-46.0) % MCV (80.0-100.0) fL MCH (25.0-35.0) pg MCHC (31.0-37.0) g/dL RDW (11.5-15.5) % Plt Count (150-450) k/uL Neutrophils % % Lymphocytes % % Monocytes % % Eosinophils % % Basophils % % Neutrophils # (1.3-7.7) k/uL Lymphocytes # (1.0-4.8) k/uL Monocytes # (0-1.0) k/uL Eosinophils # (0-0.7) k/uL Basophils # (0-0.2) k/uL Sodium 136 L (137-145) mmol/L Potassium 3.9 (3.5-5.1) mmol/L Chloride 106 (98-107) mmol/L Carbon Dioxide 23 (22-30) mmol/L Anion Gap 7 mmol/L BUN 12 (7-17) mg/dL Creatinine 0.68 (0.52-1.04) mg/dL Est GFR (CKD-EPI)AfAm >90 (>60 ml/min/1.73 sqM) Est GFR (CKD-EPI)NonAf >90 (>60 ml/min/1.73 sqM) Glucose 112 H (74-99) mg/dL Calcium 9.3 (8.4-10.2) mg/dL Total Bilirubin 0.3 (0.2-1.3) mg/dL AST 26 (14-36) U/L ALT 16 (4-34) U/L Alkaline Phosphatase 54 (38-126) U/L C-Reactive Protein 6.4 (<10.0) mg/L Total Protein 6.8 (6.3-8.2) g/dL Albumin 4.1 (3.5-5.0) g/dL Urine Color Urine Appearance (Clear) Urine pH (5.0-8.0) Ur Specific [place] (1.001-1.035) Urine Protein (Negative) Urine Glucose (UA) (Negative) Urine Ketones (Negative) Urine Blood (Negative) Urine Nitrite (Negative) Urine Bilirubin (Negative) Urine Urobilinogen (<2.0) mg/dL Ur Leukocyte Esterase (Negative) Urine RBC (0-5) /hpf Urine WBC (0-5) /hpf Ur Squamous Epith Cells (0-4) /hpf Urine Bacteria (None) /hpf Urine Mucus (None) /hpf Urine HCG, Qual (Not Detectd) Disposition Clinical Impression: Nephrolithiasis, Ovarian cyst Disposition: HOME SELF-CARE Condition: Stable Instructions (If sedation given, give patient instructions): Kidney Stones (ED) Prescriptions: Tamsulosin [Flomax] 0.4 mg PO DAILY #7 cap HYDROcodone/APAP 5-325MG [[place] 5-325] 1 tab PO Q6HR PRN 3 Days #8 tab PRN Reason: Pain Is patient prescribed a controlled substance at d/c from ED?: No Referrals: None,Stated [Primary Care Provider] - 1-2 days
[2019-09-08] MEDS ORDERED: SODIUM CHLORIDE 0.9% 1,000 ML IV ONE (03:49)
[2019-09-08] MEDS ORDERED: KETOROLAC 30 MG/ML 1 ML VIAL IVP STA (03:49)
[2019-09-08 03:52] LABS: Appearance,Urine Turbid (Clear); Bacteria,Urine Rare /hpf; Bilirubin,Urine Negative (Negative); Blood,Urine Small (Negative); Color,Urine Yellow; Glucose,Urine (UA) Negative (Negative); Ketones,Urine Negative (Negative); Leukocyte Esterase,Urine Large (Negative); Mucus,Urine Rare /hpf; Nitrite,Urine Negative (Negative); PH, Urine 6.5 (5.0-8.0); Protein,Urine Trace (Negative); RBC,Urine 13 /hpf (0-5); Squamous Epithelial Cell,Urine 37 /hpf (0-4); Urobilinogen,Urine <2.0 mg/dL (<2.0); WBC,Urine 9 /hpf (0-5)
[2019-09-08 04:16] LABS: Basophils # (A) 0.1 k/uL (0-0.2); Basophils % (A) 1 %; Eosinophils # (A) 0.2 k/uL (0-0.7); Eosinophils % (A) 2 %; HCT 34.6 % (34.0-46.0); HGB 11.8 gm/dL (11.4-16.0); Lymphocytes % (A) 33 %; MCH 28.7 pg (25.0-35.0); MCV 84.4 fL (80.0-100.0); Mean Platelet Volume 7.2; Monocytes # (A) 0.6 k/uL (0-1.0); Monocytes % (A) 6 %; Neutrophils # (A) 5.3 k/uL (1.3-7.7); Neutrophils % (A) 57 %; Platelet Count 264 k/uL (150-450); RDW 12.8 % (11.5-15.5); WBC 9.2 k/uL (4.0-11.0)
[2019-09-08 04:28] LABS: ALT 16 U/L (4-34); AST 26 U/L (14-36); African American GFR (CKD) >90 (>60 ml/min/1.73 sqM); Albumin 4.1 g/dL (3.5-5.0); Alkaline Phosphatase 54 U/L (38-126); Anion Gap 7 mmol/L; Blood Urea Nitrogen 12 mg/dL (7-17); C Reactive Protein 6.4 mg/L (<10.0); Calcium 9.3 mg/dL (8.4-10.2); Carbon Dioxide 23 mmol/L (22-30); Chloride 106 mmol/L (98-107); Glucose 112 mg/dL (74-99); Non-African American GFR(CKD) >90 (>60 ml/min/1.73 sqM); Potassium 3.9 mmol/L (3.5-5.1); Sodium 136 mmol/L (137-145); Total Bilirubin 0.3 mg/dL (0.2-1.3); Total Protein 6.8 g/dL (6.3-8.2)
--- NOTE | 2019-09-08 04:28 | XR ---
EXAMINATION TYPE: XR KUB DATE OF EXAM: 09/08/2019 COMPARISON: 05/23/2018 HISTORY: Abdominal pain TECHNIQUE: 2 views upright FINDINGS: There is no sign of intestinal obstruction or pneumoperitoneum. Fecal pattern is normal. Th ere is no evidence of a mass. Lung bases are clear. I see no pathologic calcifications over the kidne ys. IMPRESSION: Nonacute abdomen. No change.
[2019-09-08] MEDS ORDERED: cefTRIAXone IN SWFI 1,000 MG/10 ML SYRINGE IVP STA (04:34)
[2019-09-08] MEDS ORDERED: fentaNYL (PF) 50 MCG/ML 2 ML AMP IVP STA (04:55)
--- NOTE | 2019-09-08 05:20 | CT ---
EXAMINATION TYPE: CT abdomen pelvis w con DATE OF EXAM: 09/08/2019 COMPARISON: 05/23/2018 HISTORY: abd pain CT DLP: 877.3 mGycm Automated exposure control for dose reduction was used. CONTRAST: Performed with IV Contrast, patient injected with 100 mL of Isovue 300. Lung bases are clear. There is no pleural effusion. Heart size is normal. There is no pericardial eff usion. Liver spleen stomach pancreas appear normal. Bile ducts are not dilated. Gallbladder appears a bsent. There is no adrenal mass. Kidneys have normal size. There is right-sided hydronephrosis and hydrouret er. There is 3 mm calculus at the right ureterovesical junction. Left kidney shows normal excretion o n the delayed images. There is delayed right side pyelogram. Appendix appears normal. There is no ret roperitoneal adenopathy. Bladder distends smoothly. Uterus is anteverted. There is no inguinal hernia . There is no free fluid in the pelvis. There is 3.5 cm cyst on the right ovary. There is no mesenteric edema. There is no ascites or free air. There is no bowel obstruction. Lumbar vertebra have normal spacing and alignment. Posterior elements are intact. There is no reshma faisal fracture. Bony pelvis appears intact. There are a few small bowel mesenteric lymph nodes that me asure up to 10 mm in maximum dimension. Lymph nodes appear reduced compared to old exam. IMPRESSION: Right-sided hydronephrosis and hydroureter with small obstructing calculus at the right ureterovesica l junction. Obstruction is new compared to old exam. Normal appendix. Large right ovarian cyst. There is clearing of the intraperitoneal fluid compared to old exam. There is some improvement in the small bowel mesenteric enlarged lymph nodes compared to o ld exam.
[2019-09-08] MEDS ORDERED: HYDROcodone/APAP 5-325MG 1 EACH TAB PO STA (05:28)
[2019-09-08] MEDS ORDERED: ONDANSETRON 4 MG ODT STARTER PACK 2 TAB BTL PO STA (05:29)
[2019-09-08 05:46] VITALS: BP 116/73; PULSE 74; RESP 18; TEMP 98.8
== END 2019-09-08 05:47 | disposition home or self-care (01) ==
LOC: EC 03:15
DX: N13.2 Hydronephrosis with renal and ureteral calculous obstruction (principal); N83.201 Unspecified ovarian cyst, right side; Z88.5 Allergy status to narcotic agent; Z91.048 Other nonmedicinal substance allergy status; Z90.49 Acquired absence of other specified parts of digestive tract
CPT/HCPCS: 36415; 80053; 85025; 86140; 81001; 81025; 74018; 74177; 99284; 96374; 96375 ×2; 96361; J0696; J3010; J1885; S0119; Q9967

== ENCOUNTER → 2020-03-23 | Outpatient (CLI) | payer OTHER ==
--- NOTE | 2020-03-23 14:40 | XR ---
EXAMINATION TYPE: XR ankle complete 3 views LT, XR foot complete 3 views LT DATE OF EXAM: 03/23/2020 COMPARISON: Prior ankle 10/18/2017 HISTORY: 19-year-old female pain after slip and fall FINDINGS: Ankle: Ankle mortise appears congruent with preservation of the distal tibiofibular overlap. Talar dome is i ntact. No acute fracture, subluxation, dislocation. Subtalar joint is aligned. Left: No acute fracture, subluxation, dislocation. IMPRESSION: Ankle and foot without acute osseous abnormality seen.
== END | disposition home or self-care (01) ==
LOC: RADXRMAIN 13:41
PROVIDERS: ATTEND Emergency Medicine
DX: S93.402A Sprain of unspecified ligament of left ankle, initial encounter (principal); S93.602A Unspecified sprain of left foot, initial encounter

== ENCOUNTER → 2020-03-31 | Outpatient (CLI) | payer OTHER ==
--- NOTE | 2020-04-01 09:19 | XR ---
Left foot and left ankle HISTORY: Trauma and pain 3 views the left foot and 3 views of the left ankle correlated prior exam 03/23/2020 There is no interval change. Soft tissue swelling noted at the left ankle. There is a minimal plantar calcaneal spur. IMPRESSION: Stable exam. No fracture or dislocation is evident.
== END | disposition home or self-care (01) ==
LOC: RADXRMAIN 16:53
PROVIDERS: ATTEND Emergency Medicine
DX: S93.402D Sprain of unspecified ligament of left ankle, subsequent encounter (principal); S93.602D Unspecified sprain of left foot, subsequent encounter

== ENCOUNTER 2020-07-03 16:44 | Emergency (ER) | payer OTHER ==
[2020-07-03] MEDS ORDERED: SODIUM CHLORIDE 0.9% 1,000 ML IV STA (17:17)
[2020-07-03] MEDS ORDERED: ONDANSETRON 4 MG/2 ML VIAL IVP STA (17:17)
--- NOTE | 2020-07-03 17:53 | ED ---
General Adult HPI - General Chief complaint: Syncope Stated complaint: Blacked out, nausea,vomiting Time Seen by Provider: 07/03/20 17:16 Source: patient, RN notes reviewed Mode of arrival: ambulatory Limitations: no limitations - History of Present Illness Initial comments: 19-year-old female presents to the emergency room for a chief complaint of pass ing out. Patient reports she "blacked out" twice yesterday. States that this happened when she was cleaning and walking. Patient has also been nauseous and shaky. Hasn't been feeling very well over the past couple days. Patient denies any chest pain or shortness of breath. Denies significant headache. Patient has no other complaints at this time including shortness of breath, chest pain, abd ominal pain, nausea or vomiting, headache, or visual changes. - Related Data Home Medications Medication Instructions Recorded Confirmed Lidocaine 5% Patch [Lidoderm] 1 patch TOPICAL Q12H PRN 07/03/20 07/03/20 busPIRone HCl [Buspar] 5 mg PO BID 07/03/20 07/03/20 Allergies Allergy/AdvReac Type Severity Reaction Status Date / Time morphine Allergy Rash/Hives Verified 07/03/20 18:47 cigarette smoke AdvReac Unknown Verified 07/03/20 18:47 Review of Systems ROS Statement: Those systems with pertinent positive or pertinent negative responses have been documented in the HPI. ROS Other: All systems not noted in ROS Statement are negative. Past Medical History Past Medical History: GERD/Reflux Additional Past Medical History / Comment(s): stomach ulcers, UTI, kidney stones, kidney infection History of Any Multi-Drug Resistant Organisms: None Reported Past Surgical History: Cholecystectomy, Hernia Repair Additional Past Surgical History / Comment(s): EGD x5 Past Anesthesia/Blood Transfusion Reactions: No Reported Reaction Past Psychological History: ADD/ADHD, Anxiety Smoking Status: Never smoker Past Alcohol Use History: None Reported Past Drug Use History: None Reported - Past Family History Mother Family Medical History: Asthma, Hypertension Sister(s) Family Medical History: Thyroid Disorder Father Family Medical History: COPD, Coronary Artery Disease (CAD) General Exam Limitations: no limitations General appearance: alert, in no apparent distress Head exam: Present: atraumatic, normocephalic, normal inspection Eye exam: Present: normal appearance, PERRL, EOMI. Absent: scleral icterus, conjunctival injection, periorbital swelling ENT exam: Present: normal exam, mucous membranes moist Neck exam: Present: normal inspection, full ROM. Absent: tenderness, meningismus, lymphadenopathy Respiratory exam: Present: normal lung sounds bilaterally. Absent: respiratory distress, wheezes, rales, rhonchi, stridor Cardiovascular Exam: Present: regular rate, normal rhythm, normal heart sounds. Absent: systolic murmur, diastolic murmur, rubs, gallop, clicks GI/Abdominal exam: Present: soft, normal bowel sounds. Absent: distended, tenderness, guarding, rebound, rigid Neurological exam: Present: alert, oriented X3, normal gait Course Vital Signs 07/03/20 16:47 Temperature 98.5 F Pulse Rate 96 Respiratory 18 Rate Blood Pressure 132/83 O2 Sat by Pulse 98 Oximetry EKG Findings - EKG Comments: EKG Findings:: NSR, vent rate 83, PA int 166, QTc 439 Medical Decision Making - Medical Decision Making Vitals are stable. Patient is well-appearing. Patient is ambulatory, no focal neurologic deficits. Laboratory evaluation was initiated which was unremarkable. Urinalysis does not show any obvious evidence of infection. HCG is negative. Chest x-ray shows a normal chest. No change. Patient was given fluids and did have improvement in symptoms. Shee likely had syncopal episodes from dehydration and nausea vomiting. Recommend she follow up with primary care. She will return here for any worsening symptoms. Patient had a negative coronavirus testing today at work, does not want another - Lab Data Result diagrams: 07/03/20 17:45 07/03/20 17:45 Lab Results 07/03/20 07/03/20 07/03/20 Range/Units 17:45 17:45 17:45 WBC 9.5 (3.8-10.6) k/uL RBC 4.51 (3.80-5.40) m/uL Hgb 13.4 (11.4-16.0) gm/dL Hct 37.8 (34.0-46.0) % MCV 83.7 (80.0-100.0) fL MCH 29.6 (25.0-35.0) pg MCHC 35.3 (31.0-37.0) g/dL RDW 12.2 (11.5-15.5) % Plt Count 281 (150-450) k/uL MPV 7.2 Neutrophils % 64 % Lymphocytes % 27 % Monocytes % 6 % Eosinophils % 2 % Basophils % 1 % Neutrophils # 6.1 (1.3-7.7) k/uL Lymphocytes # 2.5 (1.0-4.8) k/uL Monocytes # 0.6 (0-1.0) k/uL Eosinophils # 0.2 (0-0.7) k/uL Basophils # 0.1 (0-0.2) k/uL Sodium 138 (137-145) mmol/L Potassium 4.0 (3.5-5.1) mmol/L Chloride 105 (98-107) mmol/L Carbon Dioxide 24 (22-30) mmol/L Anion Gap 9 mmol/L BUN 16 (7-17) mg/dL Creatinine 0.71 (0.52-1.04) mg/dL Est GFR (CKD-EPI)AfAm >90 (>60 ml/min/1.73 sqM) Est GFR (CKD-EPI)NonAf >90 (>60 ml/min/1.73 sqM) Glucose 105 H (74-99) mg/dL Calcium 9.6 (8.4-10.2) mg/dL Total Bilirubin 0.2 (0.2-1.3) mg/dL AST 28 (14-36) U/L ALT 16 (4-34) U/L Alkaline Phosphatase 61 (38-126) U/L Total Protein 7.5 (6.3-8.2) g/dL Albumin 4.6 (3.5-5.0) g/dL Urine Color Urine Appearance (Clear) Urine pH (5.0-8.0) Ur Specific [place] (1.001-1.035) Urine Protein (Negative) Urine Glucose (UA) (Negative) Urine Ketones (Negative) Urine Blood (Negative) Urine Nitrite (Negative) Urine Bilirubin (Negative) Urine Urobilinogen (<2.0) mg/dL Ur Leukocyte Esterase (Negative) Urine RBC (0-5) /hpf Urine WBC (0-5) /hpf Ur Squamous Epith Cells (0-4) /hpf Urine Mucus (None) /hpf Urine HCG, Qual Not Detected (Not Detectd) 07/03/20 Range/Units 17:45 WBC (3.8-10.6) k/uL RBC (3.80-5.40) m/uL Hgb (11.4-16.0) gm/dL Hct (34.0-46.0) % MCV (80.0-100.0) fL MCH (25.0-35.0) pg MCHC (31.0-37.0) g/dL RDW (11.5-15.5) % Plt Count (150-450) k/uL MPV Neutrophils % % Lymphocytes % % Monocytes % % Eosinophils % % Basophils % % Neutrophils # (1.3-7.7) k/uL Lymphocytes # (1.0-4.8) k/uL Monocytes # (0-1.0) k/uL Eosinophils # (0-0.7) k/uL Basophils # (0-0.2) k/uL Sodium (137-145) mmol/L Potassium (3.5-5.1) mmol/L Chloride (98-107) mmol/L Carbon Dioxide (22-30) mmol/L Anion Gap mmol/L BUN (7-17) mg/dL Creatinine (0.52-1.04) mg/dL Est GFR (CKD-EPI)AfAm (>60 ml/min/1.73 sqM) Est GFR (CKD-EPI)NonAf (>60 ml/min/1.73 sqM) Glucose (74-99) mg/dL Calcium (8.4-10.2) mg/dL Total Bilirubin (0.2-1.3) mg/dL AST (14-36) U/L ALT (4-34) U/L Alkaline Phosphatase (38-126) U/L Total Protein (6.3-8.2) g/dL Albumin (3.5-5.0) g/dL Urine Color Yellow Urine Appearance Cloudy H (Clear) Urine pH 6.0 (5.0-8.0) Ur Specific [place] 1.028 (1.001-1.035) Urine Protein Negative (Negative) Urine Glucose (UA) Negative (Negative) Urine Ketones Negative (Negative) Urine Blood Small H (Negative) Urine Nitrite Negative (Negative) Urine Bilirubin Negative (Negative) Urine Urobilinogen <2.0 (<2.0) mg/dL Ur Leukocyte Esterase Trace H (Negative) Urine RBC 5 (0-5) /hpf Urine WBC 2 (0-5) /hpf Ur Squamous Epith Cells 9 H (0-4) /hpf Urine Mucus Rare H (None) /hpf Urine HCG, Qual (Not Detectd) Disposition Clinical Impression: Syncope, Nausea and vomiting Disposition: HOME SELF-CARE Condition: Good Instructions (If sedation given, give patient instructions): Syncope (ED), Acute Nausea and Vomiting (ED) Additional Instructions: Please drink plenty of fluids. Follow-up with primary care in 1-2 days. Return to the emergency room for any worsening symptoms. Is patient prescribed a controlled substance at d/c from ED?: No Referrals: Anthony Jiménez DO [Primary Care Provider] - 1-2 days Time of Disposition: 18:46
[2020-07-03 17:56] LABS: Basophils # (A) 0.1 k/uL (0-0.2); Basophils % (A) 1 %; Eosinophils # (A) 0.2 k/uL (0-0.7); Eosinophils % (A) 2 %; HCT 37.8 % (34.0-46.0); HGB 13.4 gm/dL (11.4-16.0); Lymphocytes # (A) 2.5 k/uL (1.0-4.8); Lymphocytes % (A) 27 %; MCH 29.6 pg (25.0-35.0); MCHC 35.3 g/dL (31.0-37.0); MCV 83.7 fL (80.0-100.0); Mean Platelet Volume 7.2; Monocytes # (A) 0.6 k/uL (0-1.0); Monocytes % (A) 6 %; Neutrophils # (A) 6.1 k/uL (1.3-7.7); Neutrophils % (A) 64 %; Platelet Count 281 k/uL (150-450); RBC 4.51 m/uL (3.80-5.40); RDW 12.2 % (11.5-15.5); WBC 9.5 k/uL (3.8-10.6)
[2020-07-03 18:05] LABS: ALT 16 U/L (4-34); AST 28 U/L (14-36); African American GFR (CKD) >90 (>60 ml/min/1.73 sqM); Albumin 4.6 g/dL (3.5-5.0); Alkaline Phosphatase 61 U/L (38-126); Anion Gap 9 mmol/L; Blood Urea Nitrogen 16 mg/dL (7-17); Calcium 9.6 mg/dL (8.4-10.2); Carbon Dioxide 24 mmol/L (22-30); Chloride 105 mmol/L (98-107); Glucose 105 mg/dL (74-99); Non-African American GFR(CKD) >90 (>60 ml/min/1.73 sqM); Sodium 138 mmol/L (137-145); Total Bilirubin 0.2 mg/dL (0.2-1.3); Total Protein 7.5 g/dL (6.3-8.2)
[2020-07-03 18:13] LABS: Appearance,Urine Cloudy (Clear); Bilirubin,Urine Negative (Negative); Blood,Urine Small (Negative); Color,Urine Yellow; Glucose,Urine (UA) Negative (Negative); Ketones,Urine Negative (Negative); Leukocyte Esterase,Urine Trace (Negative); Mucus,Urine Rare /hpf; Nitrite,Urine Negative (Negative); Protein,Urine Negative (Negative); RBC,Urine 5 /hpf (0-5); Specific Gravity,Urine 1.028 (1.001-1.035); Squamous Epithelial Cell,Urine 9 /hpf (0-4); Urobilinogen,Urine <2.0 mg/dL (<2.0); WBC,Urine 2 /hpf (0-5)
--- NOTE | 2020-07-03 18:24 | XR ---
EXAMINATION TYPE: XR chest 2V DATE OF EXAM: 07/03/2020 COMPARISON: 07/22/2017 HISTORY: Syncope TECHNIQUE: FINDINGS: Heart and mediastinum are normal. Lungs are clear. Diaphragm is normal. Bony thorax appears normal. IMPRESSION: Normal chest. No change.
[2020-07-03 19:00] VITALS: BP 122/70; PULSE 78; RESP 16; TEMP 98.2
== END 2020-07-03 18:59 | disposition home or self-care (01) ==
LOC: EC 16:44 → SUPCPDRO 16:44 → EC 18:59
DX: R55 Syncope and collapse (principal); R11.2 Nausea with vomiting, unspecified; K21.9 Gastro-esophageal reflux disease without esophagitis
CPT/HCPCS: 36415; 93005; 80053; 85025; 81001; 81025; 71046; 99284; 96374; 96361; J2405

== ENCOUNTER 2020-09-25 16:42 | Emergency (ER) | payer OTHER ==
[2020-09-25 17:24] VITALS: BP 113/71; PULSE 67; RESP 20; TEMP 98.1
[2020-09-25] MEDS ORDERED: KETOROLAC 15 MG/ML 1 ML VIAL IM STA (18:19)
--- NOTE | 2020-09-25 18:24 | ED ---
Lower Extremity Injury HPI - General Chief Complaint: Extremity Injury, Lower Stated Complaint: IHS/Lt Ankle Injury Source: patient, RN notes reviewed Mode of arrival: wheelchair Limitations: no limitations - History of Present Illness Initial Comments: 19-year-old well-appearing white female, alert and oriented 4, presents to the emergency room with complaints of left ankle pain. 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 She does have a previous injury to that foot with ligamentous tears. She has been seeing Dr. Morgan in [facility] for that and getting physical therapy. She states the pain is 6 out of 10. Patient denies any other medical history. MD Complaint: ankle injury -: hour(s) (4) Injury: Ankle: Left, Foot: Left Type of Injury: hyperextension Place: work Severity scale (1-10): 6 Improves With: immobilization Worsens With: weight bearing, movement Context: other (Hyperextended after slipping on water) Associated Symptoms: able to partially bear weight - Related Data Home Medications Medication Instructions Recorded Confirmed Lidocaine 5% Patch [Lidoderm] 1 patch TOPICAL Q12H PRN 07/03/20 07/03/20 busPIRone HCl [Buspar] 5 mg PO BID 07/03/20 07/03/20 Allergies Allergy/AdvReac Type Severity Reaction Status Date / Time morphine Allergy Rash/Hives Verified 09/25/20 17:24 cigarette smoke AdvReac Unknown Verified 09/25/20 17:24 Review of Systems ROS Statement: Those systems with pertinent positive or pertinent negative responses have been documented in the HPI. ROS Other: All systems not noted in ROS Statement are negative. Past Medical History Past Medical History: GERD/Reflux Additional Past Medical History / Comment(s): stomach ulcers, UTI, kidney stones, kidney infection History of Any Multi-Drug Resistant Organisms: None Reported Past Surgical History: Cholecystectomy, Hernia Repair Additional Past Surgical History / Comment(s): EGD x5 Past Anesthesia/Blood Transfusion Reactions: No Reported Reaction Past Psychological History: ADD/ADHD, Anxiety Smoking Status: Never smoker Past Alcohol Use History: None Reported Past Drug Use History: None Reported - Past Family History Mother Family Medical History: Asthma, Hypertension Sister(s) Family Medical History: Thyroid Disorder Father Family Medical History: COPD, Coronary Artery Disease (CAD) General Exam Limitations: no limitations General appearance: alert, in no apparent distress Head exam: Present: atraumatic, normocephalic, normal inspection Eye exam: Present: normal appearance, PERRL, EOMI. Absent: scleral icterus, conjunctival injection, periorbital swelling ENT exam: Present: normal exam, normal oropharynx, mucous membranes moist Neck exam: Present: normal inspection, full ROM. Absent: tenderness, meningismus, lymphadenopathy Respiratory exam: Present: normal lung sounds bilaterally. Absent: respiratory distress, wheezes, rales, rhonchi, stridor Cardiovascular Exam: Present: regular rate, normal rhythm, normal heart sounds. Absent: systolic murmur, diastolic murmur, rubs, gallop, clicks Left Ankle exam: Present: tenderness (With extension) Foot/Toe exam: Present: normal inspection, tenderness at base of 5th metatarsal Neurovascular tendon exam: Present: no vascular compromise. Absent: abnormal cap refill, extremity cold to touch, pallor, foot drop Back exam: Present: normal inspection. Absent: tenderness, CVA tenderness (R), CVA tenderness (L), muscle spasm, paraspinal tenderness, vertebral tenderness, rash noted Neurological exam: Present: alert, oriented X3, CN II-XII intact Psychiatric exam: Present: normal affect, normal mood Skin exam: Present: warm, dry, intact, normal color. Absent: rash Course Vital Signs 09/25/20 17:21 Temperature 98.1 F Pulse Rate 67 Respiratory 20 Rate Blood Pressure 113/71 O2 Sat by Pulse 99 Oximetry Medical Decision Making - Medical Decision Making X-ray of the left foot shows no fracture dislocation. X-ray of the left ankle shows multiple calcaneal spurring but no fracture. Joint spaces are fairly normal. She be placed in an Aircast. Patient does have crutches with her. She will be directed to follow up with orthopedics and take Tylenol and or Motrin as needed for pain. Disposition Clinical Impression: Ankle pain Disposition: HOME SELF-CARE Condition: Good Instructions (If sedation given, give patient instructions): Ankle Sprain (ED) Additional Instructions: Take Tylenol and/or Motrin as needed for pain. Wear air splint and use crutches until seen by orthopedics. Return if any new or worsening symptoms Is patient prescribed a controlled substance at d/c from ED?: No Referrals: Anthony Jiménez DO [Primary Care Provider] - 1-2 days Juan Barrientos MD [STAFF PHYSICIAN] - 1-2 days Time of Disposition: 18:48
--- NOTE | 2020-09-25 18:43 | XR ---
EXAMINATION TYPE: XR foot complete LT DATE OF EXAM: 09/25/2020 COMPARISON: 03/31/2020 HISTORY: Pain TECHNIQUE: 3 views FINDINGS: Metatarsals appear intact. I see no fracture nor dislocation. There are no erosions. Joint spaces are fairly normal. IMPRESSION: Negative left foot exam. No fracture seen.
--- NOTE | 2020-09-25 18:44 | XR ---
EXAMINATION TYPE: XR ankle complete LT DATE OF EXAM: 09/25/2020 COMPARISON: NONE HISTORY: Pain and swelling TECHNIQUE: 2 views FINDINGS: Ankle mortise is anatomic. I see no fracture nor dislocation. Joint spaces are fairly kurt l. There is minimal calcaneal spurring. IMPRESSION: Multiple calcaneal spurring. No fracture. No adverse change compared to old exam.
== END 2020-09-25 19:53 | disposition home or self-care (01) ==
LOC: EC 16:42
DX: M25.572 Pain in left ankle and joints of left foot (principal); K21.9 Gastro-esophageal reflux disease without esophagitis; F41.9 Anxiety disorder, unspecified; F90.9 Attention-deficit hyperactivity disorder, unspecified type; Z87.440 Personal history of urinary (tract) infections; Z87.442 Personal history of urinary calculi; Z90.49 Acquired absence of other specified parts of digestive tract
CPT/HCPCS: 73610; 73630; 99283; 96372; J1885

== ENCOUNTER 2020-12-05 14:42 | Emergency (ER) | payer OTHER ==
[2020-12-05 14:51] VITALS: TEMP 99.9
[2020-12-05 15:29] LABS: Basophils % (A) 0 %; Eosinophils % (A) 0 %; HCT 38.3 % (34.0-46.0); HGB 13.6 gm/dL (11.4-16.0); Lymphocytes % (A) 11 %; MCHC 35.4 g/dL (31.0-37.0); MCV 84.6 fL (80.0-100.0); Mean Platelet Volume 7.5; Monocytes # (A) 0.5 k/uL (0-1.0); Monocytes % (A) 5 %; Neutrophils # (A) 7.7 k/uL (1.3-7.7); Neutrophils % (A) 82 %; Platelet Count 237 k/uL (150-450); RBC 4.53 m/uL (3.80-5.40); RDW 12.5 % (11.5-15.5); WBC 9.3 k/uL (3.8-10.6)
[2020-12-05 15:45] LABS: ALT 28 U/L (4-34); AST 28 U/L (14-36); African American GFR (CKD) >90 (>60 ml/min/1.73 sqM); Albumin 4.7 g/dL (3.5-5.0); Alkaline Phosphatase 65 U/L (38-126); Anion Gap 11 mmol/L; Blood Urea Nitrogen 9 mg/dL (7-17); Calcium 9.5 mg/dL (8.4-10.2); Carbon Dioxide 19 mmol/L (22-30); Chloride 103 mmol/L (98-107); Glucose 104 mg/dL (74-99); INR 1.1 (<1.2); Non-African American GFR(CKD) >90 (>60 ml/min/1.73 sqM); Potassium 3.8 mmol/L (3.5-5.1); Prothrombin Time 11.4 sec (9.0-12.0); Sodium 133 mmol/L (137-145); Total Bilirubin 1.2 mg/dL (0.2-1.3); Total Protein 7.7 g/dL (6.3-8.2)
[2020-12-05] MEDS ORDERED: SODIUM CHLORIDE 0.9% 1,000 ML IV ONE (15:51)
[2020-12-05 16:24] LABS: Appearance,Urine Clear (Clear); Bilirubin,Urine Negative (Negative); Blood,Urine Negative (Negative); Color,Urine Light Yellow; Glucose,Urine (UA) Negative (Negative); Ketones,Urine Negative (Negative); Leukocyte Esterase,Urine Negative (Negative); Nitrite,Urine Negative (Negative); Protein,Urine Negative (Negative); Specific Gravity,Urine 1.004 (1.001-1.035); Urobilinogen,Urine <2.0 mg/dL (<2.0)
--- NOTE | 2020-12-05 16:37 | ED ---
General Adult HPI - General Chief complaint: Chest Pain Stated complaint: high heart rate, fever Time Seen by Provider: 12/05/20 15:45 Source: patient, RN notes reviewed, old records reviewed Mode of arrival: wheelchair Limitations: no limitations - History of Present Illness Initial comments: 20-year-old female presenting for evaluation of chest pain and palpitations. Patient states that approximately 3 weeks ago she had coronavirus. She was told she should get the vaccine by her work. She was vaccinated against coronavirus yesterday. Today she developed fever, chest pain and palpitations. She denies significant dyspnea. She states she took a Tylenol just prior to arrival. No vomiting. Pain is in the center of her chest. - Related Data Home Medications Medication Instructions Recorded Confirmed Lidocaine 5% Patch [Lidoderm] 1 patch TOPICAL Q12H PRN 07/03/20 07/03/20 busPIRone HCl [Buspar] 5 mg PO BID 07/03/20 07/03/20 Allergies Allergy/AdvReac Type Severity Reaction Status Date / Time morphine Allergy Rash/Hives Verified 12/05/20 14:48 cigarette smoke AdvReac Unknown Verified 12/05/20 14:48 Review of Systems ROS Statement: Those systems with pertinent positive or pertinent negative responses have been documented in the HPI. ROS Other: All systems not noted in ROS Statement are negative. Past Medical History Past Medical History: GERD/Reflux Additional Past Medical History / Comment(s): stomach ulcers, UTI, kidney stones, kidney infection History of Any Multi-Drug Resistant Organisms: None Reported Past Surgical History: Cholecystectomy, Hernia Repair Additional Past Surgical History / Comment(s): EGD x5 Past Anesthesia/Blood Transfusion Reactions: No Reported Reaction Past Psychological History: ADD/ADHD, Anxiety Smoking Status: Never smoker Past Alcohol Use History: None Reported Past Drug Use History: None Reported - Past Family History Mother Family Medical History: Asthma, Hypertension Sister(s) Family Medical History: Thyroid Disorder Father Family Medical History: COPD, Coronary Artery Disease (CAD) General Exam Limitations: no limitations General appearance: alert, in no apparent distress Head exam: Present: atraumatic, normocephalic Eye exam: Present: normal appearance, PERRL ENT exam: Present: mucous membranes dry Respiratory exam: Present: normal lung sounds bilaterally. Absent: respiratory distress, wheezes Cardiovascular Exam: Present: normal rhythm, irregular rhythm GI/Abdominal exam: Present: soft. Absent: distended, tenderness, guarding Extremities exam: Present: normal inspection Neurological exam: Present: alert, oriented X3, CN II-XII intact. Absent: motor sensory deficit Psychiatric exam: Present: normal affect, normal mood Skin exam: Present: warm, dry, intact. Absent: cyanosis, diaphoretic Course Vital Signs 12/05/20 12/05/20 12/05/20 14:48 16:30 16:40 Temperature 99.9 F H Pulse Rate 118 H 110 H Pulse Rate [ 118 H [employer] ] Respiratory 20 18 Rate Blood Pressure 119/75 118/89 O2 Sat by Pulse 97 98 Oximetry EKG Findings - EKG Comments: EKG Findings:: EKG: Sinus tachycardia, left atrial enlargement, right axis, rate of 118, OK interval 150, QRS duration 76, QTC [address] segment elevation. Repeat EKG at 1733, normal sinus rhythm, rightward axis, rate 92 OK interval 150, QRS duration 78, QTC 432. Medical Decision Making - Medical Decision Making 20-year-old female who had presented for evaluation of fever, chest pain after receiving the coronavirus vaccine. Patient is overall well-appearing, she is m ildly tachycardic initially but otherwise stable. After treatment with fluids and Toradol heart rate improves. She has a normal CBC, normal CMP, negative troponin, negative d-dimer. She is given strict return parameters. - Lab Data Result diagrams: 12/05/20 15:06 12/05/20 15:06 Lab Results 12/05/20 12/05/20 12/05/20 Range/Units 15:06 15:06 15:06 WBC 9.3 (3.8-10.6) k/uL RBC 4.53 (3.80-5.40) m/uL Hgb 13.6 (11.4-16.0) gm/dL Hct 38.3 (34.0-46.0) % MCV 84.6 (80.0-100.0) fL MCH 30.0 (25.0-35.0) pg MCHC 35.4 (31.0-37.0) g/dL RDW 12.5 (11.5-15.5) % Plt Count 237 (150-450) k/uL MPV 7.5 Neutrophils % 82 % Lymphocytes % 11 % Monocytes % 5 % Eosinophils % 0 % Basophils % 0 % Neutrophils # 7.7 (1.3-7.7) k/uL Lymphocytes # 1.0 (1.0-4.8) k/uL Monocytes # 0.5 (0-1.0) k/uL Eosinophils # 0.0 (0-0.7) k/uL Basophils # 0.0 (0-0.2) k/uL PT 11.4 (9.0-12.0) sec INR 1.1 (<1.2) APTT 23.0 (22.0-30.0) sec D-Dimer (<0.60) mg/L FEU Sodium 133 L (137-145) mmol/L Potassium 3.8 (3.5-5.1) mmol/L Chloride 103 (98-107) mmol/L Carbon Dioxide 19 L (22-30) mmol/L Anion Gap 11 mmol/L BUN 9 (7-17) mg/dL Creatinine 0.71 (0.52-1.04) mg/dL Est GFR (CKD-EPI)AfAm >90 (>60 ml/min/1.73 sqM) Est GFR (CKD-EPI)NonAf >90 (>60 ml/min/1.73 sqM) Glucose 104 H (74-99) mg/dL Calcium 9.5 (8.4-10.2) mg/dL Total Bilirubin 1.2 (0.2-1.3) mg/dL AST 28 (14-36) U/L ALT 28 (4-34) U/L Alkaline Phosphatase 65 (38-126) U/L Troponin I (0.000-0.034) ng/mL Total Protein 7.7 (6.3-8.2) g/dL Albumin 4.7 (3.5-5.0) g/dL Urine Color Urine Appearance (Clear) Urine pH (5.0-8.0) Ur Specific [place] (1.001-1.035) Urine Protein (Negative) Urine Glucose (UA) (Negative) Urine Ketones (Negative) Urine Blood (Negative) Urine Nitrite (Negative) Urine Bilirubin (Negative) Urine Urobilinogen (<2.0) mg/dL Ur Leukocyte Esterase (Negative) Urine HCG, Qual (Not Detectd) 12/05/20 12/05/20 12/05/20 Range/Units 15:06 16:11 16:11 WBC (3.8-10.6) k/uL RBC (3.80-5.40) m/uL Hgb (11.4-16.0) gm/dL Hct (34.0-46.0) % MCV (80.0-100.0) fL MCH (25.0-35.0) pg MCHC (31.0-37.0) g/dL RDW (11.5-15.5) % Plt Count (150-450) k/uL MPV Neutrophils % % Lymphocytes % % Monocytes % % Eosinophils % % Basophils % % Neutrophils # (1.3-7.7) k/uL Lymphocytes # (1.0-4.8) k/uL Monocytes # (0-1.0) k/uL Eosinophils # (0-0.7) k/uL Basophils # (0-0.2) k/uL PT (9.0-12.0) sec INR (<1.2) APTT (22.0-30.0) sec D-Dimer (<0.60) mg/L FEU Sodium (137-145) mmol/L Potassium (3.5-5.1) mmol/L Chloride (98-107) mmol/L Carbon Dioxide (22-30) mmol/L Anion Gap mmol/L BUN (7-17) mg/dL Creatinine (0.52-1.04) mg/dL Est GFR (CKD-EPI)AfAm (>60 ml/min/1.73 sqM) Est GFR (CKD-EPI)NonAf (>60 ml/min/1.73 sqM) Glucose (74-99) mg/dL Calcium (8.4-10.2) mg/dL Total Bilirubin (0.2-1.3) mg/dL AST (14-36) U/L ALT (4-34) U/L Alkaline Phosphatase (38-126) U/L Troponin I <0.012 (0.000-0.034) ng/mL Total Protein (6.3-8.2) g/dL Albumin (3.5-5.0) g/dL Urine Color Light Yellow Urine Appearance Clear (Clear) Urine pH 6.0 (5.0-8.0) Ur Specific [place] 1.004 (1.001-1.035) Urine Protein Negative (Negative) Urine Glucose (UA) Negative (Negative) Urine Ketones Negative (Negative) Urine Blood Negative (Negative) Urine Nitrite Negative (Negative) Urine Bilirubin Negative (Negative) Urine Urobilinogen <2.0 (<2.0) mg/dL Ur Leukocyte Esterase Negative (Negative) Urine HCG, Qual Not Detected (Not Detectd) 12/05/20 Range/Units 16:19 WBC (3.8-10.6) k/uL RBC (3.80-5.40) m/uL Hgb (11.4-16.0) gm/dL Hct (34.0-46.0) % MCV (80.0-100.0) fL MCH (25.0-35.0) pg MCHC (31.0-37.0) g/dL RDW (11.5-15.5) % Plt Count (150-450) k/uL MPV Neutrophils % % Lymphocytes % % Monocytes % % Eosinophils % % Basophils % % Neutrophils # (1.3-7.7) k/uL Lymphocytes # (1.0-4.8) k/uL Monocytes # (0-1.0) k/uL Eosinophils # (0-0.7) k/uL Basophils # (0-0.2) k/uL PT (9.0-12.0) sec INR (<1.2) APTT (22.0-30.0) sec D-Dimer 0.34 (<0.60) mg/L FEU Sodium (137-145) mmol/L Potassium (3.5-5.1) mmol/L Chloride (98-107) mmol/L Carbon Dioxide (22-30) mmol/L Anion Gap mmol/L BUN (7-17) mg/dL Creatinine (0.52-1.04) mg/dL Est GFR (CKD-EPI)AfAm (>60 ml/min/1.73 sqM) Est GFR (CKD-EPI)NonAf (>60 ml/min/1.73 sqM) Glucose (74-99) mg/dL Calcium (8.4-10.2) mg/dL Total Bilirubin (0.2-1.3) mg/dL AST (14-36) U/L ALT (4-34) U/L Alkaline Phosphatase (38-126) U/L Troponin I (0.000-0.034) ng/mL Total Protein (6.3-8.2) g/dL Albumin (3.5-5.0) g/dL Urine Color Urine Appearance (Clear) Urine pH (5.0-8.0) Ur Specific [place] (1.001-1.035) Urine Protein (Negative) Urine Glucose (UA) (Negative) Urine Ketones (Negative) Urine Blood (Negative) Urine Nitrite (Negative) Urine Bilirubin (Negative) Urine Urobilinogen (<2.0) mg/dL Ur Leukocyte Esterase (Negative) Urine HCG, Qual (Not Detectd) Disposition Clinical Impression: Vaccine reaction, Chest pain Disposition: HOME SELF-CARE Condition: Good Instructions (If sedation given, give patient instructions): Chest Pain (ED), Adverse Drug Reaction (ED) Is patient prescribed a controlled substance at d/c from ED?: No Referrals: Anthony Jiménez DO [Primary Care Provider] - 1-2 days Time of Disposition: 17:41
[2020-12-05 16:41] VITALS: RESP 18
[2020-12-05] MEDS ORDERED: KETOROLAC 15 MG/ML 1 ML VIAL IVP STA (16:46)
[2020-12-05] MEDS ORDERED: SODIUM CHLORIDE 0.9% 500 ML 500 ML IV ONE (16:46)
[2020-12-05 17:53] VITALS: BP 106/82; PULSE 88
== END 2020-12-05 17:53 | disposition home or self-care (01) ==
LOC: EC 14:42
DX: R07.9 Chest pain, unspecified (principal); T50.Z95A Adverse effect of other vaccines and biological substances, initial encounter; K21.9 Gastro-esophageal reflux disease without esophagitis; F41.9 Anxiety disorder, unspecified; Z88.5 Allergy status to narcotic agent; Z87.440 Personal history of urinary (tract) infections; Z87.442 Personal history of urinary calculi; Z90.49 Acquired absence of other specified parts of digestive tract
CPT/HCPCS: 99285; 96374; 96361; 36415; 93005; 85379; 80053; 84484; 85025; 85610; 85730; 81003; 81025; J1885

== ENCOUNTER 2020-12-06 01:16 | Emergency (ER) | payer OTHER ==
[2020-12-06 01:26] VITALS: BP 119/80; PULSE 120; RESP 18
[2020-12-06] MEDS ORDERED: IBUPROFEN 600 MG TAB PO STA (01:44)
--- NOTE | 2020-12-06 02:00 | ED ---
General Adult HPI - General Chief complaint: Chest Pain Stated complaint: chest pain, SOB Time Seen by Provider: 12/06/20 01:35 Source: patient Mode of arrival: wheelchair Limitations: no limitations - History of Present Illness Initial comments: 20 year-old female patient presents to the emergency department for evaluation of left sided chest pain, fever, racing heart, she believes was related to vaccine reaction. Patient was seen and evaluated here earlier today for the same symptoms. Was told to return if she had worsening symptoms. States she was woke from sleep due to trouble breathing. She also has sharp stabbing pain in her left upper arm where the vaccine was administered. States she did take tylenol about 1.5 hours ago. Denies use of any other medications. Patient had COVID on 11/15. She had her COVID vaccine three days ago and started having these symptoms today. - Related Data Home Medications Medication Instructions Recorded Confirmed Lidocaine 5% Patch [Lidoderm] 1 patch TOPICAL Q12H PRN 07/03/20 07/03/20 busPIRone HCl [Buspar] 5 mg PO BID 07/03/20 07/03/20 Allergies Allergy/AdvReac Type Severity Reaction Status Date / Time morphine Allergy Rash/Hives Verified 12/06/20 01:26 cigarette smoke AdvReac Unknown Verified 12/06/20 01:26 Review of Systems ROS Statement: Those systems with pertinent positive or pertinent negative responses have been documented in the HPI. ROS Other: All systems not noted in ROS Statement are negative. Past Medical History Past Medical History: GERD/Reflux Additional Past Medical History / Comment(s): stomach ulcers, UTI, kidney stones, kidney infection History of Any Multi-Drug Resistant Organisms: None Reported Past Surgical History: Cholecystectomy, Hernia Repair Additional Past Surgical History / Comment(s): EGD x5 Past Anesthesia/Blood Transfusion Reactions: No Reported Reaction Past Psychological History: ADD/ADHD, Anxiety Smoking Status: Never smoker Past Alcohol Use History: None Reported Past Drug Use History: None Reported - Past Family History Mother Family Medical History: Asthma, Hypertension Sister(s) Family Medical History: Thyroid Disorder Father Family Medical History: COPD, Coronary Artery Disease (CAD) General Exam Limitations: no limitations General appearance: alert, in no apparent distress, other (This is a well- developed, well-nourished adult female patient in no acute distress. Vital signs upon presentation temperature 101.2F, pulse 120, respirations 18, blood pressure 119/80, pulse ox 97% on room air.) ENT exam: Present: normal exam, normal oropharynx, mucous membranes moist Respiratory exam: Present: normal lung sounds bilaterally. Absent: respiratory distress, wheezes, rales, rhonchi, stridor Cardiovascular Exam: Present: normal rhythm, tachycardia, normal heart sounds. Absent: systolic murmur, diastolic murmur, rubs, gallop, clicks GI/Abdominal exam: Present: soft, normal bowel sounds. Absent: distended, tenderness, guarding, rebound, rigid Neurological exam: Present: alert, oriented X3, CN II-XII intact Psychiatric exam: Present: normal affect, normal mood Skin exam: Present: warm, dry, intact, normal color. Absent: rash Course Vital Signs 12/06/20 01:22 Temperature 101.2 F H Pulse Rate 120 H Respiratory 18 Rate Blood Pressure 119/80 O2 Sat by Pulse 97 Oximetry Medical Decision Making - Medical Decision Making 20-year-old female patient presents to the emergency department today for evaluation of shortness of breath, chest pain, fever after receiving Covid vaccine. Physical examination revealed equal clear lung sounds. Patient is able speak full sentences and is not in any respiratory distress. Vital signs do reveal elevated temperature and heart rate. Oxygen saturation is normal. Chest x-ray negative. EKG showed sinus rhythm with no ST elevation or depression. I did discuss findings and results with her. She is given ibuprofen pain medication here. One dose of Decadron. To be discharged. The primary care physician for recheck in 1-2 days. Return parameters were discussed in detail. She verbalizes understanding and agrees with this plan. Case discussed with my attending Dr. Anglin. - Radiology Data Radiology results: image reviewed Disposition Clinical Impression: Vaccine reaction Disposition: HOME SELF-CARE Condition: Good Instructions (If sedation given, give patient instructions): Chest Pain (ED), Shortness of Breath (ED) Additional Instructions: Take Tylenol AND Motrin every 6 hours to manage fever and pain. Increase fluids. Rest. Follow up with your primary care physician for recheck in 1-2 days for recheck. Return for any new, worsening, or concerning symptoms. Is patient prescribed a controlled substance at d/c from ED?: No Referrals: Anthony Jiménez DO [Primary Care Provider] - 1-2 days Time of Disposition: 03:33
[2020-12-06] MEDS ORDERED: DEXAMETHASONE SOD PHOSPHATE 10 MG/ML 1 ML VIAL IM STA (03:05)
[2020-12-06] MEDS ORDERED: ACET/COD 300 MG/30 MG STARTER PACK 6 TAB BTL PO STA (03:53)
--- NOTE | 2020-12-06 04:07 | XR ---
EXAMINATION TYPE: XR chest 2V DATE OF EXAM: 12/06/2020 COMPARISON: 07/03/2020 HISTORY: Chest pain TECHNIQUE: 2 views FINDINGS: Heart and mediastinum are normal. Lungs are clear. Diaphragm is normal. Bony thorax is inta ct. IMPRESSION: Normal chest. No change.
[2020-12-06 04:26] VITALS: TEMP 98.7
== END 2020-12-06 04:26 | disposition home or self-care (01) ==
LOC: EC 01:16
DX: R06.02 Shortness of breath (principal); R07.89 Other chest pain; F90.9 Attention-deficit hyperactivity disorder, unspecified type; F41.9 Anxiety disorder, unspecified; T50.B95A Adverse effect of other viral vaccines, initial encounter
CPT/HCPCS: 99285; 96372; 93005; 71046; J1100

== ENCOUNTER 2021-04-27 22:16 | Emergency (ER) | payer OTHER ==
[2021-04-27 22:26] VITALS: TEMP 99.4
[2021-04-27] MEDS ORDERED: MAG HYDROX/AL HYDROX/SIMETH 30 ML, HYOSCYAMINE ELIXIR 10 ML, LIDOCAINE VISCOUS 2% 10 ML PO STA ×3 (23:54)
--- NOTE | 2021-04-28 01:08 | XR ---
EXAMINATION TYPE: XR chest 2V DATE OF EXAM: 04/28/2021 COMPARISON: 12/06/2020 HISTORY: Chest pain TECHNIQUE: 2 views FINDINGS: Heart and mediastinum are normal. Lungs are clear. Diaphragm is normal. Bony thorax appears normal. IMPRESSION: Normal chest. No change.
[2021-04-28 01:32] LABS: Basophils % (A) 0 %; Eosinophils # (A) 0.1 k/uL (0-0.7); Eosinophils % (A) 1 %; HCT 35.7 % (34.0-46.0); HGB 12.5 gm/dL (11.4-16.0); Lymphocytes # (A) 2.8 k/uL (1.0-4.8); Lymphocytes % (A) 28 %; MCH 30.3 pg (25.0-35.0); MCV 86.4 fL (80.0-100.0); Mean Platelet Volume 7.4; Monocytes # (A) 0.5 k/uL (0-1.0); Monocytes % (A) 5 %; Neutrophils # (A) 6.1 k/uL (1.3-7.7); Neutrophils % (A) 63 %; Platelet Count 315 k/uL (150-450); RBC 4.13 m/uL (3.80-5.40); RDW 13.1 % (11.5-15.5); WBC 9.8 k/uL (3.8-10.6)
[2021-04-28 01:47] LABS: ALT 26 U/L (4-34); African American GFR (CKD) >90 (>60 ml/min/1.73 sqM); Albumin 4.4 g/dL (3.5-5.0); Anion Gap 10 mmol/L; Blood Urea Nitrogen 11 mg/dL (7-17); Carbon Dioxide 23 mmol/L (22-30); Chloride 106 mmol/L (98-107); Glucose 91 mg/dL (74-99); Non-African American GFR(CKD) >90 (>60 ml/min/1.73 sqM); Sodium 139 mmol/L (137-145); Total Bilirubin 0.5 mg/dL (0.2-1.3); Total Protein 7.5 g/dL (6.3-8.2)
[2021-04-28 02:06] LABS: AST 38 U/L (14-36); Alkaline Phosphatase 45 U/L (38-126); Potassium 4.1 mmol/L (3.5-5.1)
--- NOTE | 2021-04-28 02:15 | ED ---
Allergic Reaction HPI - General Chief complaint: Allergic Reaction Stated complaint: Allergic reaction,SOB,Chest pain Time Seen by Provider: 04/27/21 23:33 Source: patient Mode of arrival: ambulatory Limitations: no limitations - History of Present Illness Initial Comments: This patient is 20-year-old woman who presents to be evaluated for ALLERGIC reac tion. She states that she started having hives come on while she was at work around 6 PM. She works at the local [employer]. Have recovering both her trunk and arms. She took some Benadryl which improve the hives and then she noted she was having some substernal aching/burning pain. Patient denies fever or chills, cough, dyspnea, diaphoresis, nausea or vomiting. MD Complaint: allergic reaction, hives -: hour(s) Exposure: unknown Symptoms: rash, itching Severity: moderate Treatment Prior to Arrival: benadryl Previous Allergy History: none - Related Data Home Medications Medication Instructions Recorded Confirmed Lidocaine 5% Patch [Lidoderm] 1 patch TOPICAL Q12H PRN 07/03/20 07/03/20 busPIRone HCl [Buspar] 5 mg PO BID 07/03/20 07/03/20 Allergies Allergy/AdvReac Type Severity Reaction Status Date / Time morphine Allergy Rash/Hives Verified 04/27/21 22:26 cigarette smoke AdvReac Unknown Verified 04/27/21 22:26 Review of Systems ROS Statement: Those systems with pertinent positive or pertinent negative responses have been documented in the HPI. ROS Other: All systems not noted in ROS Statement are negative. Constitutional: Denies: fever, chills Respiratory: Denies: cough, dyspnea, wheezes Cardiovascular: Reports: chest pain. Denies: palpitations, orthopnea, edema, syncope Gastrointestinal: Denies: abdominal pain, nausea, vomiting, diarrhea Genitourinary: Denies: dysuria Musculoskeletal: Denies: back pain Skin: Reports: rash, pruritus Neurological: Denies: headache, weakness Past Medical History Past Medical History: GERD/Reflux Additional Past Medical History / Comment(s): stomach ulcers, UTI, kidney stones, kidney infection History of Any Multi-Drug Resistant Organisms: None Reported Past Surgical History: Cholecystectomy, Hernia Repair Additional Past Surgical History / Comment(s): EGD x5 Past Anesthesia/Blood Transfusion Reactions: No Reported Reaction Past Psychological History: ADD/ADHD, Anxiety Smoking Status: Never smoker Past Alcohol Use History: None Reported Past Drug Use History: None Reported - Past Family History Mother Family Medical History: Asthma, Hypertension Sister(s) Family Medical History: Thyroid Disorder Father Family Medical History: COPD, Coronary Artery Disease (CAD) General Exam Limitations: no limitations General appearance: alert, in no apparent distress Head exam: Present: atraumatic, normocephalic Eye exam: Present: normal appearance. Absent: scleral icterus, conjunctival injection ENT exam: Present: normal oropharynx Neck exam: Present: normal inspection Respiratory exam: Present: normal lung sounds bilaterally. Absent: respiratory distress, wheezes, rales, rhonchi, stridor Cardiovascular Exam: Present: regular rate, normal rhythm, normal heart sounds. Absent: systolic murmur, diastolic murmur, rubs, gallop GI/Abdominal exam: Present: soft. Absent: distended, tenderness, guarding, rebound, rigid, mass Extremities exam: Present: normal inspection Back exam: Present: normal inspection Neurological exam: Present: alert Skin exam: Present: warm, dry, intact, normal color. Absent: rash Course Vital Signs 04/27/21 22:24 Temperature 99.4 F Pulse Rate 103 H Respiratory 20 Rate Blood Pressure 130/69 O2 Sat by Pulse 99 Oximetry Medical Decision Making - Lab Data Result diagrams: 04/28/21 01:20 04/28/21 01:20 Lab Results 04/28/21 04/28/21 04/28/21 Range/Units 01:20 01:20 01:20 WBC 9.8 (3.8-10.6) k/uL RBC 4.13 (3.80-5.40) m/uL Hgb 12.5 (11.4-16.0) gm/dL Hct 35.7 (34.0-46.0) % MCV 86.4 (80.0-100.0) fL MCH 30.3 (25.0-35.0) pg MCHC 35.0 (31.0-37.0) g/dL RDW 13.1 (11.5-15.5) % Plt Count 315 (150-450) k/uL MPV 7.4 Neutrophils % 63 % Lymphocytes % 28 % Monocytes % 5 % Eosinophils % 1 % Basophils % 0 % Neutrophils # 6.1 (1.3-7.7) k/uL Lymphocytes # 2.8 (1.0-4.8) k/uL Monocytes # 0.5 (0-1.0) k/uL Eosinophils # 0.1 (0-0.7) k/uL Basophils # 0.0 (0-0.2) k/uL D-Dimer 0.19 (<0.60) mg/L FEU Sodium 139 (137-145) mmol/L Potassium 4.1 (3.5-5.1) mmol/L Chloride 106 (98-107) mmol/L Carbon Dioxide 23 (22-30) mmol/L Anion Gap 10 mmol/L BUN 11 (7-17) mg/dL Creatinine 0.74 (0.52-1.04) mg/dL Est GFR (CKD-EPI)AfAm >90 (>60 ml/min/1.73 sqM) Est GFR (CKD-EPI)NonAf >90 (>60 ml/min/1.73 sqM) Glucose 91 (74-99) mg/dL Calcium 9.0 (8.4-10.2) mg/dL Total Bilirubin 0.5 (0.2-1.3) mg/dL AST 38 H (14-36) U/L ALT 26 (4-34) U/L Alkaline Phosphatase 45 (38-126) U/L Troponin I (0.000-0.034) ng/mL Total Protein 7.5 (6.3-8.2) g/dL Albumin 4.4 (3.5-5.0) g/dL 04/28/21 Range/Units 01:20 WBC (3.8-10.6) k/uL RBC (3.80-5.40) m/uL Hgb (11.4-16.0) gm/dL Hct (34.0-46.0) % MCV (80.0-100.0) fL MCH (25.0-35.0) pg MCHC (31.0-37.0) g/dL RDW (11.5-15.5) % Plt Count (150-450) k/uL MPV Neutrophils % % Lymphocytes % % Monocytes % % Eosinophils % % Basophils % % Neutrophils # (1.3-7.7) k/uL Lymphocytes # (1.0-4.8) k/uL Monocytes # (0-1.0) k/uL Eosinophils # (0-0.7) k/uL Basophils # (0-0.2) k/uL D-Dimer (<0.60) mg/L FEU Sodium (137-145) mmol/L Potassium (3.5-5.1) mmol/L Chloride (98-107) mmol/L Carbon Dioxide (22-30) mmol/L Anion Gap mmol/L BUN (7-17) mg/dL Creatinine (0.52-1.04) mg/dL Est GFR (CKD-EPI)AfAm (>60 ml/min/1.73 sqM) Est GFR (CKD-EPI)NonAf (>60 ml/min/1.73 sqM) Glucose (74-99) mg/dL Calcium (8.4-10.2) mg/dL Total Bilirubin (0.2-1.3) mg/dL AST (14-36) U/L ALT (4-34) U/L Alkaline Phosphatase (38-126) U/L Troponin I 0.014 (0.000-0.034) ng/mL Total Protein (6.3-8.2) g/dL Albumin (3.5-5.0) g/dL Disposition Clinical Impression: Allergic reaction Disposition: HOME SELF-CARE Condition: Good Instructions (If sedation given, give patient instructions): General Allergic Reaction (ED) Is patient prescribed a controlled substance at d/c from ED?: No Referrals: Anthony Jiménez DO [Primary Care Provider] - 1-2 days
[2021-04-28] MEDS ORDERED: IBUPROFEN 600 MG TAB PO STA (02:24)
[2021-04-28 02:36] VITALS: BP 116/71; PULSE 85; RESP 15
== END 2021-04-28 04:15 | disposition home or self-care (01) ==
LOC: EC 22:16
DX: L50.0 Allergic urticaria (principal); K21.9 Gastro-esophageal reflux disease without esophagitis; F90.9 Attention-deficit hyperactivity disorder, unspecified type; F41.9 Anxiety disorder, unspecified; Z88.5 Allergy status to narcotic agent; Z87.442 Personal history of urinary calculi; Z87.440 Personal history of urinary (tract) infections; Z90.49 Acquired absence of other specified parts of digestive tract
CPT/HCPCS: 36415; 71046; 80053; 84484; 85025; 85379; 93005; 99283

== ENCOUNTER → 2021-11-03 | Outpatient (CLI) | payer BC ==
--- NOTE | 2021-11-30 09:47 | HM ---
48 Hour Holter monitor note: Patient wore a Holter monitor for 48 hrs from 11/03/2021 through 11/05/2021. Findings: Patient's baseline heart rate was normal sinus rhythm. There were no signficant atrial fibrillation, atrial flutter, or ventricular tachycardia episodes. There were no significant pauses greater than 2 seconds. Patient's minimum heart rate was 56. Patient's maximum heart rate was 150. Patient's average heart rate was 90. There was one PVC Patient activated events corresponded with normal sinus rhythm and sinus tachycardia. Most of patient activated events corresponded with sinus tachycardia with heart rates in the 110s to 120s. Conclusions: 48 hour Holter monitor showing normal sinus rhythm, one PVC, patient activated events corresponding with sinus rhythm and predominantly sinus tachycardia heart rates 110s to 120s. MTDD
== END | disposition home or self-care (01) ==
LOC: RADECHMAIN 07:15
PROVIDERS: ATTEND Family Medicine
DX: R00.0 Tachycardia, unspecified (principal)
CPT/HCPCS: 93225; 93226

== ENCOUNTER 2021-11-25 05:45 | Observation (INO) | payer BC ==
[~2021-11-25 05:45] MED LIST: DEXAMETHASONE SOD PHOSPHATE 4 MG/ML 1 ML VIAL IV PRN; FAMOTIDINE 20 MG/2 ML VIAL IV PRN; ONDANSETRON 4 MG/2 ML VIAL IVP PRN; metroNIDAZOLE-NS PMX 500 MG in SALINE 1 100ML.BAG IVPB PRN
[2021-11-25] MEDS ORDERED: ONDANSETRON 4 MG/2 ML VIAL IVP ONE (05:50)
[2021-11-25] MEDS ORDERED: LIDOCAINE 1% (10MG/ML) FOR IV START INTRADERMA PRN (05:50)
[2021-11-25] MEDS ORDERED: DEXAMETHASONE SOD PHOSPHATE 4 MG/ML 1 ML VIAL IV ONE (05:50)
[2021-11-25] MEDS ORDERED: MIDAZOLAM 2 MG/2 ML VIAL IV PRN (05:50)
[2021-11-25] MEDS ORDERED: HYDROmorphone 0.5 MG/0.5 ML SYRINGE IVP PRN (07:00)
[2021-11-25] MEDS: LACTATED RINGERS 1,000 ML IV SCH (07:09)
[2021-11-25] MEDS ORDERED: BUPIVACAINE (PF) 0.25% 30 ML VIAL MISCELLANE ONE (07:22)
[2021-11-25] MEDS ORDERED: LIDOCAINE 0.5%-EPI 1:200,000 50 ML VIAL SUBMUCOSAL ONE (07:22)
[2021-11-25] MEDS ORDERED: LIDOCAINE 4% LTA KIT (4 ML) TOPICAL ONE (07:24)
[2021-11-25] MEDS ORDERED: SUCCINYLCHOLINE CHLORIDE 200 MG/10 ML VIAL IV ONE (07:24)
[2021-11-25] MEDS ORDERED: PROPOFOL 10 MG/ML 20 ML VIAL IV ONE (07:24)
[2021-11-25] MEDS ORDERED: MIDAZOLAM 2 MG/2 ML VIAL ONE (07:24)
[2021-11-25] MEDS ORDERED: fentaNYL (PF) 50 MCG/ML 2 ML AMP ONE (07:24)
[2021-11-25] MEDS ORDERED: LIDOCAINE 2% INJ 20 MG/ML (2 ML VIAL) ONE (07:24)
--- NOTE | 2021-11-25 08:34 | P.OP ---
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 She also has halitosis and tonsil stones. Also large and obstructive causing snoring and sleep apnea-type symptoms. She is frustrated with her over a decade of constant tonsil problems and is requesting tonsillectomy. Again, she been on multiple antibiotics and takes at least 5 antibiotics annually for her recurring tonsillitis. The antibiotics only help for about 1-2 weeks. Operative Findings: Tonsils cryptic hypertrophic grade 4 over 4 touching in the midline adenoids were also enlarged. [place] had a by city but no evidence of a submucous cleft palate. Description of Procedure: Prior to surgery all risks, benefits, and alternative therapies were discussed in detail. Risks of bleeding, infection, need for secondary surgery, airway problems, anesthetic complications, etc. etc. were discussed in detail. Consent was obtained and all questions were answered. OPERATIVE PROCEDURE: This patient was taken to the operative room and placed in the supine position. A functioning IV line was in placed and the patient was monitored throughout the entire case by the department of anesthesia. The patient underwent general anesthetic with intubation and tube was secured. A McIvor mouth gag was placed into the patients mouth with care to avoid any trauma to the lips, teeth, gums or tongue. Mouth was opened and tongue was depressed. The tonsils were grasped with an Allis forceps and brought medially bilaterally. A subcapsular dissection was performed utilizing an Evac-70 handpiece with an Arthrotec setting of 7. The tonsils were removed without incident bilaterally and the tonsillar fossae were inspected and bleeding was nonexistent and stopped spontaneously with Coblation. A Marcaine and lidocaine mixture was injected into the peritonsillar area for anesthesia postoperatively. After the tonsillar fossae were reinspected and no bleeding was seen attention was then paid to the nasopharynx where a red rubber catheter was placed into the nose and out the mouth and used to retract the soft palate. Bifid uvula noted but NO submucosal cleft palpated or noted. With use of indirect mirror examination and the Coblation hand wand, the adenoid tissue was removed in that fashion again utilizing an Evac-70 handpiece with Arthrotec setting of 7. The adenoid tissues were removed and fulgurated. The patient tolerated this procedure well. The nasopharynx shows no signs of any bleeding. McIvor mouth gag and the red rubber catheter were removed. The stomach was suctioned and the patient was taken to postanesthesia recovery in excellent condition having tolerated this procedure well. The patient will follow up in the office in one week as scheduled.
[2021-11-25] MEDS ORDERED: MIDAZOLAM 2 MG/2 ML VIAL IVP ONE (08:59)
[2021-11-25 10:40] LABS: HCT 36.6 % (34.0-46.0); HGB 12.8 gm/dL (11.4-16.0); MCH 30.1 pg (25.0-35.0); MCHC 35.1 g/dL (31.0-37.0); MCV 85.7 fL (80.0-100.0); Mean Platelet Volume 7.4; Platelet Count 242 k/uL (150-450); RBC 4.27 m/uL (3.80-5.40); RDW 12.8 % (11.5-15.5)
[2021-11-25 10:48] LABS: ALT 24 U/L (4-34); AST 44 U/L (14-36); African American GFR (CKD) >90 (>60 ml/min/1.73 sqM); Albumin 4.6 g/dL (3.5-5.0); Alkaline Phosphatase 69 U/L (38-126); Anion Gap 11 mmol/L; Blood Urea Nitrogen 13 mg/dL (7-17); Calcium 8.8 mg/dL (8.4-10.2); Carbon Dioxide 21 mmol/L (22-30); Chloride 105 mmol/L (98-107); Glucose 109 mg/dL (74-99); Magnesium 1.8 mg/dL (1.6-2.3); Non-African American GFR(CKD) >90 (>60 ml/min/1.73 sqM); Phosphorus 2.2 mg/dL (2.5-4.5); Potassium 4.2 mmol/L (3.5-5.1); Sodium 137 mmol/L (137-145); Total Bilirubin 0.5 mg/dL (0.2-1.3); Total Protein 7.4 g/dL (6.3-8.2)
[2021-11-25 10:59] LABS: Prothrombin Time 10.6 sec (9.0-12.0)
[2021-11-25 11:04] LABS: Creatine Kinase MB 4.3 ng/mL (0.0-2.4); Troponin I <0.012 ng/mL (0.000-0.034)
[2021-11-25] MEDS ORDERED: LACTATED RINGERS 1,000 ML IV ONE (12:18)
--- NOTE | 2021-11-25 12:31 | P.CRDCN ---
History of Present Illness History of present illness: HISTORY OF PRESENTING ILLNESS This is a pleasant 21-year-old female past medical history significant for anxiety, depression, tachycardia, palpitations, near syncope and syncope, gastric ulcers, asthma. She follows in the office with Dr. Paul. We have been asked to see in consultation for chest discomfort. Patient presents to the hospital for planned adenotonsillectomy with Dr. Griffith. Patient has been having recurrent chest discomfort over the past year. She did have COVID an d has been having discomfort in the left side of her chest with deep inspiration. She also has been noticing chest discomfort with activity and is associated with palpitations, she gets tachycardic, lightheadedness, nausea, sweating and patient has had near syncopal and syncopal episodes. This has been happening about 1 year now. She gets these symptoms majority of the time when she stands and is walking. She denies any history of hypertension, diabetes. No family history of heart disease. She denies any tobacco use or illicit drug use. She has been seen by her PCP and Dr. Paul in the past. She has undergone exercise stress test, echocardiogram and holter monitor within the past year with no significant abnormalities. She recently had another event monitor with her PCP that she recently turned in. DIAGNOSTICS * EKG reveals sinus rhythm HR 70s, no abnormal ST-T wave abnormalities . * Echocardiogram 02/25/2021 in the office revealed EF 55-60%, mild mitral regurgitation. * Exercise stress test in the office 02/25/2021 patient did not achieve 85% of PMHR, however 84% of PMHR there was no evidence of ischemic change on EKG * Holter monitor in the office 01/2021 revealed sinus rhythm, normal study, no malignant arrhythmias present * Telemetry tracings at bedside reveal sinus tachycardia HR low 100s. * Laboratory reviewed, sodium 137, potassium 4.2, BUN 13, serum creatinine 0.6, troponin negative, WBC 12 * Current home medications include Effexor, Protonix, Zofran, Albuterol PRN REVIEW OF SYSTEMS At the time of my exam: CONSTITUTIONAL: Denies fever or chills. CARDIOVASCULAR: Denies chest pain, shortness of breath, orthopnea, PND or palpitations. RESPIRATORY: Denies cough. GASTROINTESTINAL: Denies abdominal pain, diarrhea, constipation, nausea or vomiting. MUSCULOSKELETAL: Denies myalgias. NEUROLOGIC: Denies numbness, tingling, headache or weakness. ENDOCRINE: Denies fatigue, weight change, polydipsia or polyurina. GENITOURINARY: Denies burning, hematuria or urgency with micturation. HEMATOLOGIC: Denies history of anemia or bleeding. PHYSICAL EXAMINATION Blood pressure 144/88 HR 98, afebrile 99% 3L nasal cannula CONSTITUTIONAL: No apparent distress. HEENT: Head is normocephalic. Pupils are equal, round. Sclerae anicteric. Mucous membranes of the mouth are moist. No JVD. No carotid bruit. CHEST EXAMINATION: Lungs are clear to auscultation. Chest wall tenderness is noted on palpation left sided and with deep breathing. HEART EXAMINATION: Regular rate and rhythm. S1, S2 heard. No murmurs, gallops or rub. ABDOMEN: Soft, nontender. Positive bowel sounds. EXTREMITIES: 2+ peripheral pulses, no lower extremity edema and no calf tenderness. SKIN: warm, dry NEUROLOGIC EXAMINATION: Patient is awake, alert and oriented x3. ASSESSMENT Chest discomfort with deep breathing but also episodes after standing with associated symptoms noted above for possible Postural Tachycardia Syndrome (PoTS). Also paying having chest discomfort with deep inspiration after covid Status post tonsillectomy Sinus tachycardia History of Anxiety and depression Palpitations History of near syncope and syncope History of gastric ulcers History of asthma PLAN Patient has been having symptoms of chest discomfort with deep inspiration after she had covid infection. As well as for the past year symptoms of chest discomfort after standing and ambulating with palpitations, tachycardia, lightheadedness, nausea, sweating and patient has had near syncopal and syncopal episodes. Could possibly be Postural Tachycardia Syndrome (PoTS). EKG with no acute findings Recent negative workup in the office. Initial troponin negative. We will obtain 2 further troponins, if negative, ok to discharge later today per cardiology and follow up outpatient with Dr. Paul. Thank you kindly for this consultation. Nurse practitioner note has been reviewed by physician. Signing provider agrees with the documented findings, assessment, and plan of care. Past Medical History Past Medical History: Asthma, GERD/Reflux, Osteoarthritis (OA) Additional Past Medical History / Comment(s): hx stomach ulcers, UTI, kidney st ones, kidney infection. per pt tachycardia chest pain tightness and n/v 180 at times. recently had holter monitor removed, irregular as well per pt. 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 OA to rt knee. hx fx to left ankle and rt knee. bilateral lower leg edema. History of Any Multi-Drug Resistant Organisms: None Reported Past Surgical History: Cholecystectomy, Hernia Repair Additional Past Surgical History / Comment(s): EGD x5. rt inguinal hernia repair. wisdom teeth bottom 2. Past Anesthesia/Blood Transfusion Reactions: Postoperative Nausea & Vomiting (PONV) Additional Past Anesthesia/Blood Transfusion Reaction / Comment(s): last anesthesia nausea caused admit overnight Smoking Status: Never smoker - Past Family History Mother Family Medical History: Asthma, Hypertension Sister(s) Family Medical History: Thyroid Disorder Father Family Medical History: COPD, Coronary Artery Disease (CAD), Deep Vein Thrombosis (DVT) Medications and Allergies Home Medications Medication Instructions Recorded Confirmed Type Albuterol Inhaler [Ventolin Hfa 2 puff INHALATION Q4H PRN 11/24/21 11/24/21 History Inhaler] Ondansetron [Zofran] 4 mg PO DAILY PRN 11/24/21 11/24/21 History Pantoprazole Sodium [Protonix] 20 mg PO DAILY 11/24/21 11/24/21 History Unk Women's Vitamin 1 tab PO DAILY 11/24/21 11/24/21 History Venlafaxine HCl ER [Effexor Xr] 75 mg PO DAILY 11/24/21 11/24/21 History Allergies Allergy/AdvReac Type Severity Reaction Status Date / Time morphine Allergy Rash/Hives Verified 04/27/21 22:26 cigarette smoke AdvReac Unknown Verified 11/24/21 08:41 Physical Exam Vitals: Vital Signs Temp Pulse Resp BP Pulse Ox 11/25/21 09:15 99 20 131/80 100 11/25/21 09:00 89 19 136/80 100 11/25/21 08:45 104 H 19 128/84 100 11/25/21 08:30 97.0 F L 95 16 136/62 100 11/25/21 06:35 97.1 F L 94 14 128/64 97 Intake and Output 11/24/21 11/25/21 11/25/21 22:59 06:59 14:59 Intake Total 850 Output Total 5 Balance 845 Intake: IV 850 Output: Estimated Blood Loss 5 Other: Weight 81.6 kg Results 11/25/21 10:14 11/25/21 10:14 Current Medications Generic Name Dose Route Start Last Admin Trade Name Chris PRN Reason Stop Dose Admin Hydromorphone HCl 0.5 mg 11/25/21 07:00 Hydromorphone 0.5 Mg/0.5 Ml Syringe IVP 11/25/21 23:00 Q5M PRN Phase 1 or 2 - Pain Control Metronidazole 500 mg/ IV 100 mls @ 100 mls/hr 11/25/21 05:00 Solution IVPB 11/25/21 20:00 ONCE PRN PRE-OP Lactated Ringer's 1,000 mls @ 20 mls/hr 11/25/21 05:50 11/25/21 07:09 Lactated Ringers IV 12/25/21 05:51 800 mls .Q24H ABNER Administration Lidocaine HCl 0.1 ml 11/25/21 05:50 Lidocaine 1% (10mg/Ml) For Iv Start INTRADERMA 12/25/21 05:51 PER PROTOCOL PRN IV Start Ondansetron HCl 4 mg 11/25/21 05:00 Ondansetron 4 Mg/2 Ml Vial IVP 11/26/21 00:01 ONCE PRN pre-op Intake and Output 11/24/21 11/25/21 11/25/21 22:59 06:59 14:59 Intake Total 850 Output Total 5 Balance 845 Intake: IV 850 Output: Estimated Blood Loss 5 Other: Weight 81.6 kg
[2021-11-25] MEDS ORDERED: ACETAMINOPHEN TAB 325 MG TAB PO PRN (12:58)
[2021-11-25] MEDS ORDERED: LIDOCAINE VISCOUS 2% 15 ML CUP MUCOUS MEM PRN (12:59)
[2021-11-25] MEDS ORDERED: ONDANSETRON 4 MG TAB PO PRN (14:52)
[2021-11-25] MEDS ORDERED: ALBUTEROL NEBULIZED 2.5 MG/3 ML INHALATION PRN (14:52)
[2021-11-25] MEDS: FAMOTIDINE 20 MG TAB PO SCH (16:10)
[2021-11-25] MEDS ORDERED: VENLAFAXINE HCL ER 75 MG CAP PO STA (21:39)
[2021-11-26] MEDS: LACTATED RINGERS 1,000 ML IV SCH (05:28)
[2021-11-26] MEDS ORDERED: PANTOPRAZOLE 40 MG TABLET PO SCH (07:30)
[2021-11-26] MEDS: FAMOTIDINE 20 MG TAB PO SCH (07:52)
[2021-11-26 08:40] VITALS: RESP 18
[2021-11-26] MEDS ORDERED: VENLAFAXINE HCL ER 75 MG CAP PO SCH (09:00)
[2021-11-26] MEDS ORDERED: MELOXICAM 7.5 MG TAB PO SCH (09:00)
[2021-11-26 15:32] VITALS: BP 107/56; PULSE 84; TEMP 98.1
--- NOTE | 2021-11-30 05:48 | HP ---
HISTORY AND PHYSICAL CHIEF COMPLAINT: Unstable blood pressure and pulse. HISTORY OF PRESENT ILLNESS: This is a first known admission for this 21-year-old white female AMA. She came in for routine T and A. Postoperatively, she developed sinus tachycardia and the blood pressure became somewhat unstable and it was decided that she should stay in the hospital. REVIEW OF SYSTEMS: She denies any headaches, confusion, lethargy, focal neurologic deficits, change in vision or hearing, chest pain, shortness of breath, palpitations, nausea etc. Past medical history, family history, personal and social histories are unremarkable. She is allergic to morphine. She has asthma and she uses Advair. She is on Effexor 75 mg once a day, ondansetron p.r.n., and Protonix. She does not smoke. PHYSICAL EXAMINATION: VITAL SIGNS: Blood pressure 122/78 with a pulse of 113, respirations of 18. She is afebrile. GENERAL: She appeared to be in no acute distress. Skin color is normal. SKIN: Warm, dry. LYMPHATICS: Lymph nodes are not enlarged. HEAD, EARS, EYES, NOSE, MOUTH AND THROAT: Normal except for surgical findings in the throat. CHEST: Clear. CARDIAC: Normal. No murmurs or extra sounds. ABDOMEN: Soft, nontender without any visceromegaly, or masses. Bowel sounds are present. EXTREMITIES: Normal. NEUROLOGIC: She is intact. IMPRESSION: She is admitted to the hospital with diagnosis of: 1. Unstable blood pressure. 2. Tachycardia. 3. Status post tonsillectomy and adenoidectomy. 4. History of depression. RECOMMENDATIONS: 1. Bedrest. 2. IV fluids. 3. Frequent monitoring of her blood pressure and pulse. MMODL / IJN: [id number] /
--- NOTE | 2021-11-30 06:13 | DS ---
DISCHARGE SUMMARY CHIEF COMPLAINT: Postoperative tachycardia. HISTORY OF PRESENT ILLNESS AND PHYSICAL EXAMINATION: Details of this lady's history and physical can be found in the initial workup. LABORATORY STUDIES: While she was in the hospital, she had laboratory studies, details of which can be found in the laboratory section of her chart. COURSE IN THE HOSPITAL: After admission, she was placed on bedrest, started on intravenous fluids, and had frequent monitoring of her blood pressure and pulse. She did well, and she was asymptomatic. Pulse came down to around 100, which is in the normal for her. She is doing well. It was felt that she could be discharged home on the . She will go home on light activity about the house, and she will be followed up in a few days in the office. FINAL DIAGNOSES: 1. Postoperative tachycardia and unstable blood pressure. 2. Status post tonsillectomy and adenoidectomy. 3. History of depression. OPERATIONS: None. CONSULTATIONS: None. CONDITION: She is improved. MMODL / IJN: [id number] /
== END 2021-11-26 17:10 | disposition home or self-care (01) ==
LOC: OR 05:45 → 6NMEDSUR 12:45 → OR 11-26 15:06 → 6NMEDSUR 11-26 15:06
PROVIDERS: ADMIT Family Medicine; ATTEND Family Medicine
DX: J35.03 Chronic tonsillitis and adenoiditis (principal); I97.191 Other postprocedural cardiac functional disturbances following other surgery; F41.9 Anxiety disorder, unspecified; F32.A Depression, unspecified; K21.9 Gastro-esophageal reflux disease without esophagitis; J45.909 Unspecified asthma, uncomplicated; Z86.16 Personal history of COVID-19; Z87.442 Personal history of urinary calculi; Z90.49 Acquired absence of other specified parts of digestive tract; Z82.49 Family history of ischemic heart disease and other diseases of the circulatory system; Z82.5 Family history of asthma and other chronic lower respiratory diseases; Z79.899 Other long term (current) drug therapy; Z88.5 Allergy status to narcotic agent; Y83.8 Other surgical procedures as the cause of abnormal reaction of the patient, or of later complication, without mention of misadventure at the time of the procedure
CPT/HCPCS: 94640; 81025; 84439; 88304; 80053; 82553; 83735; 84100; 84484; 85027; 85610; 42821; G0378; J2250; J0330; J1100; J0690; J2405; J3010; J2704; J1170; J2001

== ENCOUNTER 2021-11-30 18:39 | Emergency (ER) | payer BC ==
[2021-11-30 18:49] VITALS: BP 121/82; PULSE 101; RESP 20; TEMP 97.6
--- NOTE | 2021-11-30 20:34 | ED ---
General Adult HPI - General Chief complaint: Recheck/Abnormal Lab/Rx Stated complaint: post op throat bleeding Time Seen by Provider: 11/30/21 20:29 Source: patient Mode of arrival: ambulatory Limitations: no limitations - History of Present Illness Initial comments: Dictation was produced using [employer] dictation software. please excuse any grammatical, word or spelling errors. Chief Complaint: 21-year-old feel presents to the emergency department for postoperative tonsillectomy bleeding History of Present Illness: To 21-year-old female she had her tonsils surgically removed by Dr. Hernandez 5 days ago. Patient was admitted to the hospital for monitoring postoperatively. She's been doing fine since. Patient states that since his surgery she is only been eating Jell-O. Today she was sleeping when all of a sudden she felt blood dripping down her face. She states that it was about half cans worth of blood. States that the bleeding was ongoing for 1 hour then resolved on its own. Patient states that bleeding was noticed between 6:30 and 7:30 PM. Patient states that just prior to coming to the emergency department the bleeding stopped. She called her primary care doctor who told her to come to the ER. The ROS documented in this emergency department record has been reviewed and confirmed by me. Those systems with pertinent positive or negative responses have been documented in the HPI. All other systems are other negative and/or noncontributory. PHYSICAL EXAM: General Impression: Alert and oriented x3, not in acute distress HEENT: Normocephalic atraumatic, extra-ocular movements intact, pupils equal and reactive to light bilaterally, mucous membranes moist. Oral: There is healing tissue in the viral tonsillar area. Cardiovascular: Heart regular rate and rhythm Chest: Able to complete full sentences, no retractions, no tachypnea Musculoskeletal: Pulses present and equal in all extremities, no peripheral edema Motor: no focal deficits noted Neurological: CN II-XII grossly intact, no focal motor or sensory deficits noted Skin: Intact with no visualized rashes Psych: Normal affect and mood ED course: 21-year-old female presents to the emergency department for postoperative tonsillectomy bleeding. vitals upon arrival are within acceptable limits. Physical examination is benign. Case is discussed with Dr. Hernandez over the phone. He request that patient gargle ice water for 15 minutes and to drool over a basin for 15 minutes. The patient has any bleeding he reports like to be notified to coming to the ER for intervention. Patient tolerated the gargling of ice water with no complications. No recurrence of bleeding. Patient observed in the emergency department for 3 hours with no recurrence of bleeding. Patient discharge. She states that she will be with her and can return to emergency department if she has any issues. Otherwise she is told to contact Dr. Santiago office for follow-up appointment first thing in the morning tomorrow. - Related Data Home Medications Medication Instructions Recorded Confirmed Albuterol Inhaler [Ventolin Hfa 2 puff INHALATION Q4H PRN 11/24/21 11/24/21 Inhaler] Ondansetron [Zofran] 4 mg PO DAILY PRN 11/24/21 11/24/21 Pantoprazole Sodium [Protonix] 20 mg PO DAILY 11/24/21 11/24/21 Unk Women's Vitamin 1 tab PO DAILY 11/24/21 11/24/21 Venlafaxine HCl ER [Effexor XR] 75 mg PO DAILY 11/24/21 11/24/21 Allergies Allergy/AdvReac Type Severity Reaction Status Date / Time morphine Allergy Rash/Hives Verified 11/30/21 18:48 cigarette smoke AdvReac Unknown Verified 11/30/21 18:48 Review of Systems ROS Statement: Those systems with pertinent positive or pertinent negative responses have been documented in the HPI. ROS Other: All systems not noted in ROS Statement are negative. Past Medical History Past Medical History: Asthma, GERD/Reflux, Osteoarthritis (OA) Additional Past Medical History / Comment(s): hx stomach ulcers, UTI, kidney stones, kidney infection. per pt tachycardia chest pain tightness and n/v 180 at times. recently had holter monitor removed, irregular as well per pt. 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 OA to rt knee. hx fx to left ankle and rt knee. bilateral lower leg edema. History of Any Multi-Drug Resistant Organisms: None Reported Past Surgical History: Adenoidectomy, Cholecystectomy, Hernia Repair, Tonsillectomy Additional Past Surgical History / Comment(s): EGD x5. rt inguinal hernia repair. wisdom teeth bottom 2. Past Anesthesia/Blood Transfusion Reactions: Postoperative Nausea & Vomiting (PONV) Additional Past Anesthesia/Blood Transfusion Reaction / Comment(s): last anesthesia nausea caused admit overnight Past Psychological History: ADD/ADHD, Anxiety, Depression Smoking Status: Never smoker Past Alcohol Use History: None Reported Past Drug Use History: None Reported - Past Family History Mother Family Medical History: Asthma, Hypertension Sister(s) Family Medical History: Thyroid Disorder Father Family Medical History: COPD, Coronary Artery Disease (CAD), Deep Vein Thrombosis (DVT) General Exam Limitations: no limitations Course Vital Signs 11/30/21 18:45 Temperature 97.6 F Pulse Rate 101 H Respiratory 20 Rate Blood Pressure 121/82 O2 Sat by Pulse 98 Oximetry Disposition Clinical Impression: Post-op bleeding Disposition: HOME SELF-CARE Condition: Fair Instructions (If sedation given, give patient instructions): Tonsillectomy (DC) Is patient prescribed a controlled substance at d/c from ED?: No Referrals: Shreyas Griffith DO [Doctor of Osteopathic Medicine] - 1-2 days Time of Disposition: 21:49
== END 2021-11-30 21:57 | disposition home or self-care (01) ==
LOC: EC 18:39
DX: J95.830 Postprocedural hemorrhage of a respiratory system organ or structure following a respiratory system procedure (principal); J45.909 Unspecified asthma, uncomplicated; K21.9 Gastro-esophageal reflux disease without esophagitis; M19.90 Unspecified osteoarthritis, unspecified site; F90.9 Attention-deficit hyperactivity disorder, unspecified type; F32.A Depression, unspecified; Z79.51 Long term (current) use of inhaled steroids; Z79.1 Long term (current) use of non-steroidal anti-inflammatories (NSAID); Z79.899 Other long term (current) drug therapy
CPT/HCPCS: 99283

== ENCOUNTER → 2022-01-10 | Day surgery (SDC) | payer BC ==
[2022-01-05 15:58] VITALS: BMI 32.3
[~2022-01-10] MED LIST changes: -DEXAMETHASONE SOD PHOSPHATE 4 MG/ML 1 ML VIAL IV PRN; -FAMOTIDINE 20 MG/2 ML VIAL IV PRN; -ONDANSETRON 4 MG/2 ML VIAL IVP PRN; +SODIUM CHLORIDE 0.9% 1,000 ML IV SCH; -metroNIDAZOLE-NS PMX 500 MG in SALINE 1 100ML.BAG IVPB PRN
== END ==
LOC: CATHEP 13:36
PROVIDERS: ATTEND Internal Medicine Clinical Cardiac Electrophysiology
DX: Z53.9 Procedure and treatment not carried out, unspecified reason (principal)

== ENCOUNTER 2022-01-11 10:40 | Day surgery (SDC) | payer BC ==
[2022-01-11] MEDS ORDERED: SODIUM CHLORIDE 0.9% 500 ML 500 ML IV ONE (10:57)
[2022-01-11 11:13] VITALS: BP 132/79; RESP 16; TEMP 98.2
[2022-01-11 13:44] VITALS: PULSE 86
--- NOTE | 2022-01-11 18:39 | P.EPPROC ---
- EP Procedure Note Electrophysiology Procedure Note: Diagnosis Recurrent presyncope Twelve-lead EKG Sinus mechanism normal IN narrow QRS normal ST segments normal QT interval Tilt table test Baseline blood pressure 116/70 mmHg, Baseline heart rate 62 beats a minute Patient was tilted upright and I'll of 70 per protocol No change in heart rate and blood pressure No evidence for orthostatic intolerance No evidence for neurocardiogenic syncope Impression Normal heart rate and blood pressure response to upright tilting Normal coronary EKG
== END 2022-01-11 13:16 | disposition home or self-care (01) ==
LOC: CATHEP 10:40
PROVIDERS: ATTEND Internal Medicine Clinical Cardiac Electrophysiology
DX: R55 Syncope and collapse (principal)
CPT/HCPCS: 93660

== ENCOUNTER 2022-05-03 20:40 | Emergency (ER) | payer BC ==
[2022-05-03] MEDS ORDERED: SODIUM CHLORIDE 0.9% 1,000 ML IV STA (21:07)
[2022-05-03] MEDS ORDERED: KETOROLAC 15 MG/ML 1 ML VIAL IVP STA (21:08)
--- NOTE | 2022-05-03 21:29 | ED ---
Arrhythmia/Palpitations HPI - General Chief Complaint: Arrhythmia/Palpitations Stated Complaint: Chest Pain, SOB Time Seen by Provider: 05/03/22 20:58 Source: patient Mode of arrival: ambulatory Limitations: no limitations - History of Present Illness Initial Comments: Patient is a 21-year-old female presenting with chief complaint of chest pain and difficulty breathing. Patient states that yesterday she started experiencing chest discomfort and shortness of breath. Pain is located primarily on the left side, pain is worse with deep breaths and coughing, pain is reproducible. Patient states that she has a history of tachycardia and is currently on metoprolol. Yesterday she had an EKG while at work which showed a heart rate of 180 bpm. Patient also admits to cough and congestion that started today. She admits to sensation that her heart is racing. Admits to mild nausea, no vomiting or abdominal pain. No fevers or chills. - Related Data Home Medications Medication Instructions Recorded Confirmed Albuterol Inhaler [Ventolin Hfa 2 puff INHALATION Q4H PRN 11/24/21 01/05/22 Inhaler] Venlafaxine HCl ER [Effexor XR] 75 mg PO DAILY 11/24/21 01/05/22 Pantoprazole Sodium 20 mg PO AC-SUPPER 01/05/22 01/05/22 Allergies Allergy/AdvReac Type Severity Reaction Status Date / Time morphine Allergy Rash/Hives Verified 05/03/22 20:46 tramadol Allergy Nausea & Verified 05/03/22 20:46 Vomiting cigarette smoke AdvReac Unknown Verified 05/03/22 20:46 Review of Systems ROS Statement: Those systems with pertinent positive or pertinent negative responses have been documented in the HPI. ROS Other: All systems not noted in ROS Statement are negative. Past Medical History Past Medical History: Asthma, GERD/Reflux, Osteoarthritis (OA) Additional Past Medical History / Comment(s): hx stomach ulcers, UTI, kidney stones, kidney infection. per pt tachycardia chest pain tightness and n/v 180 at times. recently had holter monitor removed, irregular as well per pt. 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 OA to rt knee. hx fx to left ankle and rt knee. bilateral lower leg edema. History of Any Multi-Drug Resistant Organisms: None Reported Past Surgical History: Adenoidectomy, Cholecystectomy, Hernia Repair, Tonsillectomy Additional Past Surgical History / Comment(s): EGD x5. rt inguinal hernia repair. wisdom teeth bottom 2. Past Anesthesia/Blood Transfusion Reactions: Postoperative Nausea & Vomiting (PONV) Additional Past Anesthesia/Blood Transfusion Reaction / Comment(s): last anesthesia nausea caused admit overnight Past Psychological History: ADD/ADHD, Anxiety, Depression Smoking Status: Never smoker Past Alcohol Use History: None Reported Past Drug Use History: None Reported - Past Family History Mother Family Medical History: Asthma, Hypertension Sister(s) Family Medical History: Thyroid Disorder Father Family Medical History: COPD, Coronary Artery Disease (CAD), Deep Vein Thrombosis (DVT) General Exam Limitations: no limitations General appearance: alert, in no apparent distress Head exam: Present: atraumatic, normocephalic, normal inspection Eye exam: Present: normal appearance Neck exam: Present: normal inspection, full ROM Respiratory exam: Present: normal lung sounds bilaterally, chest wall tenderness. Absent: respiratory distress, wheezes, rales, rhonchi, stridor, accessory muscle use Cardiovascular Exam: Present: regular rate, normal rhythm, normal heart sounds. Absent: systolic murmur, diastolic murmur, rubs, gallop, clicks Neurological exam: Present: alert, oriented X3, CN II-XII intact Psychiatric exam: Present: normal affect, normal mood Skin exam: Present: warm, dry, intact, normal color. Absent: rash Course Vital Signs 05/03/22 05/03/22 20:41 23:44 Temperature 98.0 F 98.4 F Pulse Rate 106 H 92 Respiratory 26 H 16 Rate Blood Pressure 127/71 122/81 O2 Sat by Pulse 98 97 Oximetry EKG Findings - EKG Comments: EKG Findings:: Sinus rhythm ventricular rate 96. ID interval 166. QRS 83. QT 342. QTc 396. There is borderline right axis deviation. No ST deviation or T wave inversion. Medical Decision Making - Medical Decision Making Was pt. sent in by a medical professional or institution (, PA, MULT AU MATIC OPERATOR, urgent care, hospital, or skilled nursing...) When possible be specific @ -No Did you speak to anyone other than the patient for history (EMS, parent, family, police, friend...)? What history was obtained from this source @ -No Did you review nursing and triage notes (agree or disagree)? Why? @ -I reviewed and agree with nursing and triage notes Were old charts reviewed (outside hosp., previous admission, EMS record, old EKG, old radiological studies, urgent care reports/EKG's, skilled nursing records)? Report findings @ -No old charts were reviewed Differential Diagnosis (chest pain, altered mental status, abdominal pain women, abdominal pain men, vaginal bleeding, weakness, fever, dyspnea, syncope, headache, dizziness, GI bleed, back pain, seizure, CVA, palpatations, mental health, musculoskeletal)? @ -MDM Differential Chest Pain: Costochondritis, Stable Angina, Unstable Angina, STEMI, NSTEMI Aortic Dissection, Pneumothorax, Musculoskeletal, Esophageal Spasm GERD, Cholecystitis, Pancreatitis, Zoster This is not meant to be an all-inclusive list. EKG interpreted by me (3pts min.). @ -As above X-rays interpreted by me (1pt min.). @ -Chest x-ray shows no acute process CT interpreted by me (1pt min.). @ -None done U/S interpreted by me (1pt. min.). @ -None done What testing was considered but not performed or refused? (CT, X-rays, U/S, labs)? Why? @ -None What meds were considered but not given or refused? Why? @ -None Did you discuss the management of the patient with other professionals (professionals i.e. , PA, MULT AU MATIC OPERATOR, lab, RT, psych nurse, secondary social studies teacher, virtualization engineer, teacher, parking officer, case supervisor)? Give summary @ -No Was smoking cessation discussed for >3mins.? @ -No Was critical care preformed (if so, how long)? @ -No Were there social determinants of health that impacted care today? How? (Sg elessness, low income, unemployed, alcoholism, drug addiction, transportation, low edu. Level, literacy, decrease access to med. care, residential, rehab)? @ -No Was there de-escalation of care discussed even if they declined (Discuss DNR or withdrawal of care, Hospice)? DNR status @ -No What co-morbidities impacted this encounter? (DM, HTN, Smoking, COPD, CAD, Cancer, CVA, ARF, Chemo, Hep., AIDS, mental health diagnosis, sleep apnea, morbid obesity)? @ -None Was patient admitted / discharged? Hospital course, mention meds given and route, prescriptions, significant lab abnormalities, going to OR and other pertinent info. @ -She is a 21-year-old female presenting with chief complaint of sharp pleuritic chest pain as well as dyspnea and URI-like symptoms that all started yesterday. On physical examination pain is reproducible on palpation, heart and lungs are clear to auscultation. Patient is resting comfortably, nontoxic appearing. Lab work shows no leukocytosis or anemia. D-dimer is WNL. Troponin is WNL and CMP is unremarkable. Urine shows no sign of infectious process. HCG is negative. Patient is negative for influenza, RSV, and Covid. Chest x-ray shows no acute process. Patient reports some improvement in her symptoms after Toradol. Patient is educated on the findings in on supportive management at home. Follow-up with PCP. Report back to ER with any new or worsening symptoms. Discussed return parameters and answered all questions. Patient conveyed verbal understanding and agreed to the plan. I discussed this case in detail with my attending Dr. Sears Undiagnosed new problem with uncertain prognosis? @ -No Drug Therapy requiring intensive monitoring for toxicity (Heparin, Nitro, Insulin, Cardizem)? @ -No Were any procedures done? @ -No Diagnosis/symptom? @ -Pleuritic chest pain Acute, or Chronic, or Acute on Chronic? @ -Acute Uncomplicated (without systemic symptoms) or Complicated (systemic symptoms)? @ -Uncomplicated Side effects of treatment? @ -No Exacerbation, Progression, or Severe Exacerbation? @ -No Poses a threat to life or bodily function? How? (Chest pain, USA, MA, pneumonia, PE, COPD, DKA, ARF, appy, cholecystitis, CVA, Diverticulitis, Homicidal, Suicidal, threat to staff... and all critical care pts) @ -No - Lab Data Result diagrams: 05/03/22 21:44 05/03/22 21:44 Lab Results 05/03/22 05/03/22 05/03/22 Range/Units 21:44 21:44 21:44 WBC 10.5 (3.8-10.6) k/uL RBC 4.25 (3.80-5.40) m/uL Hgb 12.9 (11.4-16.0) gm/dL Hct 36.7 (34.0-46.0) % MCV 86.3 (80.0-100.0) fL MCH 30.3 (25.0-35.0) pg MCHC 35.1 (31.0-37.0) g/dL RDW 12.8 (11.5-15.5) % Plt Count 283 (150-450) k/uL MPV 7.4 Neutrophils % 75 % Lymphocytes % 16 % Monocytes % 6 % Eosinophils % 2 % Basophils % 0 % Neutrophils # 7.9 H (1.3-7.7) k/uL Lymphocytes # 1.6 (1.0-4.8) k/uL Monocytes # 0.6 (0-1.0) k/uL Eosinophils # 0.2 (0-0.7) k/uL Basophils # 0.0 (0-0.2) k/uL PT 9.9 (9.0-12.0) sec INR 0.9 (<1.2) APTT 24.8 (22.0-30.0) sec D-Dimer 0.35 (<0.60) mg/L FEU Sodium (137-145) mmol/L Potassium (3.5-5.1) mmol/L Chloride (98-107) mmol/L Carbon Dioxide (22-30) mmol/L Anion Gap mmol/L BUN (7-17) mg/dL Creatinine (0.52-1.04) mg/dL Est GFR (CKD-EPI)AfAm (>60 ml/min/1.73 sqM) Est GFR (CKD-EPI)NonAf (>60 ml/min/1.73 sqM) Glucose (74-99) mg/dL Calcium (8.4-10.2) mg/dL Magnesium (1.6-2.3) mg/dL Total Bilirubin (0.2-1.3) mg/dL AST (14-36) U/L ALT (4-34) U/L Alkaline Phosphatase (38-126) U/L Troponin I (0.000-0.034) ng/mL Total Protein (6.3-8.2) g/dL Albumin (3.5-5.0) g/dL TSH (0.465-4.680) mIU/L Urine Color Yellow Urine Appearance Clear (Clear) Urine pH 7.5 (5.0-8.0) Ur Specific [place] 1.019 (1.001-1.035) Urine Protein Negative (Negative) Urine Glucose (UA) Negative (Negative) Urine Ketones Negative (Negative) Urine Blood Negative (Negative) Urine Nitrite Negative (Negative) Urine Bilirubin Negative (Negative) Urine Urobilinogen <2.0 (<2.0) mg/dL Ur Leukocyte Esterase Negative (Negative) Urine HCG, Qual (Not Detectd) Urine Opiates Screen Not Detected (NotDetected) Ur Oxycodone Screen Not Detected (NotDetected) Urine Methadone Screen Not Detected (NotDetected) Ur Propoxyphene Screen Not Detected (NotDetected) Ur Barbiturates Screen Not Detected (NotDetected) U Tricyclic Antidepress Not Detected (NotDetected) Ur Phencyclidine Scrn Not Detected (NotDetected) Ur Amphetamines Screen Not Detected (NotDetected) U Methamphetamines Scrn Not Detected (NotDetected) U Benzodiazepines Scrn Detected H (NotDetected) Urine Cocaine Screen Not Detected (NotDetected) U Marijuana (THC) Screen Not Detected (NotDetected) Influenza Type A (PCR) (Not Detectd) Influenza Type B (PCR) (Not Detectd) RSV (PCR) (Not Detectd) SARS-CoV-2 (PCR) (Not Detectd) 05/03/22 05/03/22 05/03/22 Range/Units 21:44 21:44 21:44 WBC (3.8-10.6) k/uL RBC (3.80-5.40) m/uL Hgb (11.4-16.0) gm/dL Hct (34.0-46.0) % MCV (80.0-100.0) fL MCH (25.0-35.0) pg MCHC (31.0-37.0) g/dL RDW (11.5-15.5) % Plt Count (150-450) k/uL MPV Neutrophils % % Lymphocytes % % Monocytes % % Eosinophils % % Basophils % % Neutrophils # (1.3-7.7) k/uL Lymphocytes # (1.0-4.8) k/uL Monocytes # (0-1.0) k/uL Eosinophils # (0-0.7) k/uL Basophils # (0-0.2) k/uL PT (9.0-12.0) sec INR (<1.2) APTT (22.0-30.0) sec D-Dimer (<0.60) mg/L FEU Sodium 138 (137-145) mmol/L Potassium 3.8 (3.5-5.1) mmol/L Chloride 101 (98-107) mmol/L Carbon Dioxide 28 (22-30) mmol/L Anion Gap 9 mmol/L BUN 10 (7-17) mg/dL Creatinine 0.79 (0.52-1.04) mg/dL Est GFR (CKD-EPI)AfAm >90 (>60 ml/min/1.73 sqM) Est GFR (CKD-EPI)NonAf >90 (>60 ml/min/1.73 sqM) Glucose 83 (74-99) mg/dL Calcium 9.3 (8.4-10.2) mg/dL Magnesium 1.9 (1.6-2.3) mg/dL Total Bilirubin 0.5 (0.2-1.3) mg/dL AST 34 (14-36) U/L ALT 28 (4-34) U/L Alkaline Phosphatase 62 (38-126) U/L Troponin I <0.012 (0.000-0.034) ng/mL Total Protein 7.8 (6.3-8.2) g/dL Albumin 4.6 (3.5-5.0) g/dL TSH 1.580 (0.465-4.680) mIU/L Urine Color Urine Appearance (Clear) Urine pH (5.0-8.0) Ur Specific [place] (1.001-1.035) Urine Protein (Negative) Urine Glucose (UA) (Negative) Urine Ketones (Negative) Urine Blood (Negative) Urine Nitrite (Negative) Urine Bilirubin (Negative) Urine Urobilinogen (<2.0) mg/dL Ur Leukocyte Esterase (Negative) Urine HCG, Qual Not Detected (Not Detectd) Urine Opiates Screen (NotDetected) Ur Oxycodone Screen (NotDetected) Urine Methadone Screen (NotDetected) Ur Propoxyphene Screen (NotDetected) Ur Barbiturates Screen (NotDetected) U Tricyclic Antidepress (NotDetected) Ur Phencyclidine Scrn (NotDetected) Ur Amphetamines Screen (NotDetected) U Methamphetamines Scrn (NotDetected) U Benzodiazepines Scrn (NotDetected) Urine Cocaine Screen (NotDetected) U Marijuana (THC) Screen (NotDetected) Influenza Type A (PCR) (Not Detectd) Influenza Type B (PCR) (Not Detectd) RSV (PCR) (Not Detectd) SARS-CoV-2 (PCR) (Not Detectd) 05/03/22 Range/Units 21:44 WBC (3.8-10.6) k/uL RBC (3.80-5.40) m/uL Hgb (11.4-16.0) gm/dL Hct (34.0-46.0) % MCV (80.0-100.0) fL MCH (25.0-35.0) pg MCHC (31.0-37.0) g/dL RDW (11.5-15.5) % Plt Count (150-450) k/uL MPV Neutrophils % % Lymphocytes % % Monocytes % % Eosinophils % % Basophils % % Neutrophils # (1.3-7.7) k/uL Lymphocytes # (1.0-4.8) k/uL Monocytes # (0-1.0) k/uL Eosinophils # (0-0.7) k/uL Basophils # (0-0.2) k/uL PT (9.0-12.0) sec INR (<1.2) APTT (22.0-30.0) sec D-Dimer (<0.60) mg/L FEU Sodium (137-145) mmol/L Potassium (3.5-5.1) mmol/L Chloride (98-107) mmol/L Carbon Dioxide (22-30) mmol/L Anion Gap mmol/L BUN (7-17) mg/dL Creatinine (0.52-1.04) mg/dL Est GFR (CKD-EPI)AfAm (>60 ml/min/1.73 sqM) Est GFR (CKD-EPI)NonAf (>60 ml/min/1.73 sqM) Glucose (74-99) mg/dL Calcium (8.4-10.2) mg/dL Magnesium (1.6-2.3) mg/dL Total Bilirubin (0.2-1.3) mg/dL AST (14-36) U/L ALT (4-34) U/L Alkaline Phosphatase (38-126) U/L Troponin I (0.000-0.034) ng/mL Total Protein (6.3-8.2) g/dL Albumin (3.5-5.0) g/dL TSH (0.465-4.680) mIU/L Urine Color Urine Appearance (Clear) Urine pH (5.0-8.0) Ur Specific [place] (1.001-1.035) Urine Protein (Negative) Urine Glucose (UA) (Negative) Urine Ketones (Negative) Urine Blood (Negative) Urine Nitrite (Negative) Urine Bilirubin (Negative) Urine Urobilinogen (<2.0) mg/dL Ur Leukocyte Esterase (Negative) Urine HCG, Qual (Not Detectd) Urine Opiates Screen (NotDetected) Ur Oxycodone Screen (NotDetected) Urine Methadone Screen (NotDetected) Ur Propoxyphene Screen (NotDetected) Ur Barbiturates Screen (NotDetected) U Tricyclic Antidepress (NotDetected) Ur Phencyclidine Scrn (NotDetected) Ur Amphetamines Screen (NotDetected) U Methamphetamines Scrn (NotDetected) U Benzodiazepines Scrn (NotDetected) Urine Cocaine Screen (NotDetected) U Marijuana (THC) Screen (NotDetected) Influenza Type A (PCR) Not Detected (Not Detectd) Influenza Type B (PCR) Not Detected (Not Detectd) RSV (PCR) Not Detected (Not Detectd) SARS-CoV-2 (PCR) Not Detected (Not Detectd) Disposition Clinical Impression: Pleuritic chest pain Disposition: HOME SELF-CARE Condition: Good Instructions (If sedation given, give patient instructions): Chest Pain (ED), Heart Palpitations (ED), Costochondritis (ED) Additional Instructions: Follow-up with PCP. Report back to ER with any new or worsening symptoms. Take Motrin and Tylenol as needed for pain control. Is patient prescribed a controlled substance at d/c from ED?: No Referrals: Douglas Overton MD [Primary Care Provider] - 1-2 days Time of Disposition: 23:13
[2022-05-03 22:03] LABS: Basophils % (A) 0 %; Eosinophils # (A) 0.2 k/uL (0-0.7); Eosinophils % (A) 2 %; HCT 36.7 % (34.0-46.0); HGB 12.9 gm/dL (11.4-16.0); Lymphocytes # (A) 1.6 k/uL (1.0-4.8); Lymphocytes % (A) 16 %; MCH 30.3 pg (25.0-35.0); MCHC 35.1 g/dL (31.0-37.0); MCV 86.3 fL (80.0-100.0); Mean Platelet Volume 7.4; Monocytes # (A) 0.6 k/uL (0-1.0); Monocytes % (A) 6 %; Neutrophils # (A) 7.9 k/uL (1.3-7.7); Neutrophils % (A) 75 %; Platelet Count 283 k/uL (150-450); RBC 4.25 m/uL (3.80-5.40); RDW 12.8 % (11.5-15.5); WBC 10.5 k/uL (3.8-10.6)
[2022-05-03 22:04] LABS: Appearance,Urine Clear (Clear); Bilirubin,Urine Negative (Negative); Blood,Urine Negative (Negative); Color,Urine Yellow; Glucose,Urine (UA) Negative (Negative); Ketones,Urine Negative (Negative); Leukocyte Esterase,Urine Negative (Negative); Nitrite,Urine Negative (Negative); PH, Urine 7.5 (5.0-8.0); Protein,Urine Negative (Negative); Specific Gravity,Urine 1.019 (1.001-1.035); Urobilinogen,Urine <2.0 mg/dL (<2.0)
[2022-05-03 22:13] LABS: ALT 28 U/L (4-34); AST 34 U/L (14-36); African American GFR (CKD) >90 (>60 ml/min/1.73 sqM); Albumin 4.6 g/dL (3.5-5.0); Alkaline Phosphatase 62 U/L (38-126); Anion Gap 9 mmol/L; Blood Urea Nitrogen 10 mg/dL (7-17); Calcium 9.3 mg/dL (8.4-10.2); Carbon Dioxide 28 mmol/L (22-30); Chloride 101 mmol/L (98-107); Glucose 83 mg/dL (74-99); Magnesium 1.9 mg/dL (1.6-2.3); Non-African American GFR(CKD) >90 (>60 ml/min/1.73 sqM); Sodium 138 mmol/L (137-145); Total Bilirubin 0.5 mg/dL (0.2-1.3); Total Protein 7.8 g/dL (6.3-8.2)
[2022-05-03 22:21] LABS: INR 0.9 (<1.2); Partial Thromboplastin Time 24.8 sec (22.0-30.0); Prothrombin Time 9.9 sec (9.0-12.0)
[2022-05-03 22:25] LABS: Amphetamine Screen,Urine Not Detected (NotDetected); Barbiturate Screen,Urine Not Detected (NotDetected); Benzodiazepines Screen,Urine Detected (NotDetected); Cocaine Screen,Urine Not Detected (NotDetected); Methadone Screen, Urine Not Detected (NotDetected); Opiate Screen,Urine Not Detected (NotDetected); Oxycodone Screen, Urine Not Detected (NotDetected); Phencyclidine Screen,Urine Not Detected (NotDetected); Tricyclic Antidepressant,Urine Not Detected (NotDetected); Urn Cannabinoid Scrn Not Detected (NotDetected)
[2022-05-03 22:49] LABS: Potassium 3.8 mmol/L (3.5-5.1)
--- NOTE | 2022-05-03 22:50 | XR ---
EXAMINATION TYPE: XR chest 2V DATE OF EXAM: 05/03/2022 COMPARISON: NONE HISTORY: Chest pain TECHNIQUE: 2 views FINDINGS: Heart and mediastinum are normal. Lungs are clear. Diaphragm is normal. Bony thorax is inta ct. IMPRESSION: Normal chest. No change.
[2022-05-03 23:45] VITALS: BP 122/81; PULSE 92; RESP 16; TEMP 98.4
== END 2022-05-03 23:45 | disposition home or self-care (01) ==
LOC: EC 20:40
DX: R07.81 Pleurodynia (principal); J45.909 Unspecified asthma, uncomplicated; K21.9 Gastro-esophageal reflux disease without esophagitis; F90.9 Attention-deficit hyperactivity disorder, unspecified type; F41.9 Anxiety disorder, unspecified; F32.A Depression, unspecified; Z79.899 Other long term (current) drug therapy; Z88.5 Allergy status to narcotic agent; Z88.6 Allergy status to analgesic agent; Z88.8 Allergy status to other drugs, medicaments and biological substances; Z20.822 Contact with and (suspected) exposure to COVID-19
CPT/HCPCS: 36415; 85379; 80053; 84443; 83735; 84484; 85025; 85610; 85730; 81003; 81025; 80306; 87636; 71046; 99285; 96374; 96361 ×2; J1885

== ENCOUNTER → 2022-05-30 | Outpatient (CLI) | payer BC ==
[2022-05-31 02:13] LABS: HCT 37.8 % (37.2-46.3); HGB 12.4 g/dL (12.0-15.0); MCH 29.5 pg (27.0-32.0); MCHC 32.8 g/dL (32.0-37.0); MCV 89.8 fL (80.0-97.0); Mean Platelet Volume 10.7 fL (9.5-12.2); NRBC Per 100 WBC 0 /100 WBCS (0.0-0.0); Platelet Count 290 X 10*3/uL (140-440); RBC 4.21 X 10*6/uL (4.10-5.20); RDW 12.7 % (11.5-14.5); WBC 12.66 X 10*3/uL (4.50-10.00)
[2022-05-31 02:14] LABS: ALT 23 U/L (8-44); AST 31 U/L (13-35); African American GFR (CKD) 120.4 (60.0-200.0); Albumin 4.5 g/dL (3.8-4.9); Albumin/Globulin Ratio 1.73 (1.60-3.17); Alkaline Phosphatase 72 U/L (41-126); BUN/Creat Ratio 10.13 Ratio (12.00-20.00); Blood Urea Nitrogen 8.1 mg/dL (9.0-27.0); Calcium 9.3 mg/dL (8.7-10.3); Chloride 103 mmol/L (96-109); Globulin 2.6 g/dL (1.6-3.3); Glucose 88 mg/dL (70-110); Non-African American GFR(CKD) 103.9 (60.0-200.0); Potassium 4.1 mmol/L (3.5-5.5); Sodium 139 mmol/L (135-145); Total Protein 7.1 g/dL (6.2-8.2)
== END | disposition home or self-care (01) ==
LOC: LABWHC1 14:44
PROVIDERS: ATTEND Nurse Practitioner Adult Health
DX: R60.0 Localized edema (principal); R06.02 Shortness of breath
CPT/HCPCS: 36415; 80053; 83880; 84443; 85027

== ENCOUNTER → 2022-06-07 | Outpatient (CLI) | payer BC ==
--- NOTE | 2022-06-07 12:29 | US ---
EXAMINATION TYPE: US venous doppler duplex LE DATE OF EXAM: 06/07/2022 8:40 AM COMPARISON: NONE CLINICAL INDICATION: Female, 21 years old with history of M79.662 PAIN IN LEFT LOWER LEG; edema SIDE PERFORMED: Bilateral TECHNIQUE: The lower extremity deep venous system is examined utilizing real time linear array sonog melanie with graded compression, doppler sonography and color-flow sonography. VESSELS IMAGED: Common Femoral Vein Deep Femoral Vein Greater Saphenous Vein * Femoral Vein Popliteal Vein Small Saphenous Vein * Proximal Calf Veins (* superficial vessels) Right Leg: Negative for DVT Left Leg: Negative for DVT IMPRESSION: Grayscale, color doppler, spectral doppler imaging performed of the deep veins of the lo wer extremities. There is normal flow, compressibility, vascular waveforms.
== END | disposition home or self-care (01) ==
LOC: RADUSWWP 08:19
PROVIDERS: ATTEND Internal Medicine Interventional Cardiology
DX: M79.662 Pain in left lower leg (principal)
CPT/HCPCS: 93970

== ENCOUNTER 2022-12-18 00:04 | Emergency (ER) | payer BC ==
[2022-12-18 00:21] VITALS: TEMP 98.6
[2022-12-18 01:15] LABS: Appearance,Urine Clear (Clear); Bilirubin,Urine Negative (Negative); Blood,Urine Negative (Negative); Color,Urine Colorless; Glucose,Urine (UA) Negative (Negative); Ketones,Urine Negative (Negative); Leukocyte Esterase,Urine Negative (Negative); Nitrite,Urine Negative (Negative); PH, Urine 7.5 (5.0-8.0); Protein,Urine Negative (Negative); Urobilinogen,Urine <2.0 mg/dL (<2.0)
[2022-12-18] MEDS ORDERED: SODIUM CHLORIDE 0.9% 1,000 ML IV ONE (01:28)
[2022-12-18 02:22] LABS: Basophils % (A) 0 %; Eosinophils # (A) 0.2 k/uL (0-0.7); Eosinophils % (A) 1 %; HGB 12.2 gm/dL (11.4-16.0); Lymphocytes # (A) 2.4 k/uL (1.0-4.8); Lymphocytes % (A) 20 %; MCH 31.2 pg (25.0-35.0); MCHC 35.8 g/dL (31.0-37.0); MCV 87.3 fL (80.0-100.0); Mean Platelet Volume 7.9; Monocytes # (A) 0.5 k/uL (0-1.0); Monocytes % (A) 5 %; Neutrophils # (A) 8.7 k/uL (1.3-7.7); Neutrophils % (A) 73 %; Platelet Count 226 k/uL (150-450)
[2022-12-18 02:25] LABS: ALT 24 U/L (4-34); AST 49 U/L (14-36); African American GFR (CKD) >90 (>60 ml/min/1.73 sqM); Albumin 4.2 g/dL (3.5-5.0); Alkaline Phosphatase 50 U/L (38-126); Anion Gap 10 mmol/L; Blood Urea Nitrogen 8 mg/dL (7-17); Carbon Dioxide 19 mmol/L (22-30); Chloride 107 mmol/L (98-107); Glucose 87 mg/dL (74-99); Non-African American GFR(CKD) >90 (>60 ml/min/1.73 sqM); Sodium 136 mmol/L (137-145); Total Protein 7.4 g/dL (6.3-8.2)
[2022-12-18 03:08] LABS: Potassium 4.9 mmol/L (3.5-5.1)
--- NOTE | 2022-12-18 03:58 | ED ---
Abdominal Pain HPI - General Chief Complaint: OB/Uterine Contractions Stated Complaint: 14 wks preg Low Back Pain Time Seen by Provider: 12/18/22 00:24 Source: patient Mode of arrival: ambulatory Limitations: no limitations - History of Present Illness Initial Comments: This patient is 22-year-old woman who states she is 14 weeks based on previous ultrasound, who presents with suprapubic and low back pain, cramping, that is been present intermittently going back 3 days now. She states it is mild. She has not had any associated vaginal discharge or bleeding. Patient denies fever or chills. No change in urination. MD Complaint: abdominal pain Onset/Timin -: days(s) Location: suprapubic Radiation: back Migration to: no migration Severity: mild Quality: cramping Consistency: intermittent Improves With: nothing Worsens With: nothing Associated Symptoms: denies other symptoms - Related Data Home Medications Medication Instructions Recorded Confirmed Albuterol Inhaler [Ventolin Hfa 2 puff INHALATION Q4H PRN 11/24/21 01/05/22 Inhaler] Venlafaxine HCl ER [Effexor XR] 75 mg PO DAILY 11/24/21 01/05/22 Pantoprazole Sodium 20 mg PO AC-SUPPER 01/05/22 01/05/22 Allergies Allergy/AdvReac Type Severity Reaction Status Date / Time morphine Allergy Rash/Hives Verified 05/03/22 20:46 tramadol Allergy Nausea & Verified 05/03/22 20:46 Vomiting cigarette smoke AdvReac Unknown Verified 05/03/22 20:46 Review of Systems ROS Statement: Those systems with pertinent positive or pertinent negative responses have been documented in the HPI. ROS Other: All systems not noted in ROS Statement are negative. Constitutional: Denies: fever, chills, weakness Respiratory: Denies: cough, dyspnea Cardiovascular: Denies: chest pain, palpitations, edema Gastrointestinal: Reports: abdominal pain. Denies: nausea, vomiting, diarrhea, constipation, melena, hematochezia Genitourinary: Denies: dysuria, frequency, hematuria, discharge, abnormal menses Musculoskeletal: Denies: back pain Skin: Denies: rash Neurological: Denies: headache, weakness Past Medical History Past Medical History: Asthma, GERD/Reflux, Osteoarthritis (OA) Additional Past Medical History / Comment(s): hx stomach ulcers, UTI, kidney stones, kidney infection. per pt tachycardia chest pain tightness and n/v 180 at times. recently had holter monitor removed, irregular as well per pt. 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 OA to rt knee. hx fx to left ankle and rt knee. bilateral lower leg edema. History of Any Multi-Drug Resistant Organisms: None Reported Past Surgical History: Adenoidectomy, Cholecystectomy, Hernia Repair, Tonsillectomy Additional Past Surgical History / Comment(s): EGD x5. rt inguinal hernia repair. wisdom teeth bottom 2. Past Anesthesia/Blood Transfusion Reactions: Postoperative Nausea & Vomiting (PONV) Additional Past Anesthesia/Blood Transfusion Reaction / Comment(s): last anesthesia nausea caused admit overnight Past Psychological History: ADD/ADHD, Anxiety, Depression Smoking Status: Never smoker Past Alcohol Use History: None Reported Past Drug Use History: None Reported - Past Family History Mother Family Medical History: Asthma, Hypertension Sister(s) Family Medical History: Thyroid Disorder Father Family Medical History: COPD, Coronary Artery Disease (CAD), Deep Vein Th rombosis (DVT) General Exam Limitations: no limitations General appearance: alert, in no apparent distress Head exam: Present: atraumatic, normocephalic Eye exam: Present: normal appearance. Absent: scleral icterus, conjunctival injection Neck exam: Present: normal inspection Respiratory exam: Present: normal lung sounds bilaterally. Absent: respiratory distress, wheezes, rales, rhonchi, stridor, accessory muscle use Cardiovascular Exam: Present: regular rate, normal rhythm, normal heart sounds. Absent: systolic murmur, diastolic murmur, rubs, gallop GI/Abdominal exam: Present: soft. Absent: distended, tenderness, guarding, rebound, rigid, mass, pulsatile mass, hernia External exam: Present: other (Patient declines gynecologic exam) Extremities exam: Present: normal inspection, normal capillary refill. Absent: pedal edema, calf tenderness Back exam: Present: normal inspection. Absent: CVA tenderness (R), CVA tenderness (L) Neurological exam: Present: alert Skin exam: Present: warm, dry, intact, normal color. Absent: rash Course Vital Signs 12/18/22 12/18/22 00:06 04:36 Temperature 98.6 F Pulse Rate 90 88 Respiratory 16 18 Rate Blood Pressure 117/81 115/69 O2 Sat by Pulse 97 100 Oximetry Medical Decision Making - Medical Decision Making Was pt. sent in by a medical professional or institution ([facility], [employer]AC PRESS OPERATOR, urgent care, hospital, or penitentiary...) When possible be specific @ -[No] Did you speak to anyone other than the patient for history (EMS, parent, family, police, friend...)? What history was obtained from this source @ -[No] Did you review nursing and triage notes (agree or disagree)? Why? @ -[I reviewed and agree with nursing and triage notes] Were old charts reviewed (outside hosp., previous admission, EMS record, old EKG, old radiological studies, urgent care reports/EKG's, penitentiary records)? Report findings @ -[No old charts were reviewed] Differential Diagnosis (chest pain, altered mental status, abdominal pain women, abdominal pain men, vaginal bleeding, weakness, fever, dyspnea, syncope, headache, dizziness, GI bleed, back pain, seizure, CVA, palpatations, mental health, musculoskeletal)? @ -[Differential abdominal pain and Spontaneous , threatened , molar , ectopic , incompetent cervix, abruptioplacenta, placenta previa, uterine rupture, dysfunctional uterine bleeding, hemorrhage, uterine fibroids, urinary tract infection, appendicitis, kidney stone, this is not meant to be an all- inclusive list. EKG interpreted by me (3pts min.). @ -[ X-rays interpreted by me (1pt min.). @ -[None done] CT interpreted by me (1pt min.). @ -[None done] U/S interpreted by me (1pt. min.). @ -[None done] What testing was considered but not performed or refused? (CT, X-rays, U/S, labs)? Why? @ -[None] What meds were considered but not given or refused? Why? @ -[None] Did you discuss the management of the patient with other professionals (professionals i.e. [facility] [address], VAC PRESS OPERATOR, lab, RT, psych nurse, oncology social worker, siphoner, teacher, juvenile justice officer, manager case)? Give summary @ -[No] Was smoking cessation discussed for >3mins.? @ -[No] Was critical care preformed (if so, how long)? @ -[No] Were there social determinants of health that impacted care today? How? (Homelessness, low income, unemployed, alcoholism, drug addiction, transportation, low edu. Level, literacy, decrease access to med. care, intermediate, rehab)? @ -[No] Was there de-escalation of care discussed even if they declined (Discuss DNR or withdrawal of care, Hospice)? DNR status @ -[No] What co-morbidities impacted this encounter? (DM, HTN, Smoking, COPD, CAD, Cancer, CVA, ARF, Chemo, Hep., AIDS, mental health diagnosis, sleep apnea, morbid obesity)? @ -[None] Was patient admitted / discharged? Hospital course, mention meds given and route, prescriptions, significant lab abnormalities, going to OR and other pertinent info. @ -[Patient is 22-year-old woman with intermittent pelvic cramping going to 3 days. Exam is benign and workup here not revealing urinary tract infection or other concerning findings. Patient at this point declines gynecologic exam states she will follow with her wrap yarn sorter. We discussed appropriate follow- up as well as return parameters. Undiagnosed new problem with uncertain prognosis? @ -[No] Drug Therapy requiring intensive monitoring for toxicity (Heparin, Nitro, Insulin, Cardizem)? @ -[No] Were any procedures done? @ -[No] Diagnosis/symptom? @ -[Abdominal pain in early Acute, or Chronic, or Acute on Chronic? @ -[Acute Uncomplicated (without systemic symptoms) or Complicated (systemic symptoms)? @ -[Uncomplicated Side effects of treatment? @ -[No] Exacerbation, Progression, or Severe Exacerbation? @ -[No] Poses a threat to life or bodily function? How? (Chest pain, USA, AL, pneumonia, PE, COPD, DKA, ARF, appy, cholecystitis, CVA, Diverticulitis, Homicidal, Suicidal, threat to staff... and all critical care pts) @ -[No] - Lab Data Result diagrams: 12/18/22 01:56 12/18/22 01:56 Lab Results 12/18/22 12/18/22 12/18/22 Range/Units 00:54 01:56 01:56 WBC 12.0 H (3.8-10.6) k/uL RBC 3.90 (3.80-5.40) m/uL Hgb 12.2 (11.4-16.0) gm/dL Hct 34.0 (34.0-46.0) % MCV 87.3 (80.0-100.0) fL MCH 31.2 (25.0-35.0) pg MCHC 35.8 (31.0-37.0) g/dL RDW 13.0 (11.5-15.5) % Plt Count 226 (150-450) k/uL MPV 7.9 Neutrophils % 73 % Lymphocytes % 20 % Monocytes % 5 % Eosinophils % 1 % Basophils % 0 % Neutrophils # 8.7 H (1.3-7.7) k/uL Lymphocytes # 2.4 (1.0-4.8) k/uL Monocytes # 0.5 (0-1.0) k/uL Eosinophils # 0.2 (0-0.7) k/uL Basophils # 0.0 (0-0.2) k/uL Sodium 136 L (137-145) mmol/L Potassium 4.9 (3.5-5.1) mmol/L Chloride 107 (98-107) mmol/L Carbon Dioxide 19 L (22-30) mmol/L Anion Gap 10 mmol/L BUN 8 (7-17) mg/dL Creatinine 0.50 L (0.52-1.04) mg/dL Est GFR (CKD-EPI)AfAm >90 (>60 ml/min/1.73 sqM) Est GFR (CKD-EPI)NonAf >90 (>60 ml/min/1.73 sqM) Glucose 87 (74-99) mg/dL Calcium 9.0 (8.4-10.2) mg/dL Total Bilirubin 1.0 (0.2-1.3) mg/dL AST 49 H (14-36) U/L ALT 24 (4-34) U/L Alkaline Phosphatase 50 (38-126) U/L Total Protein 7.4 (6.3-8.2) g/dL Albumin 4.2 (3.5-5.0) g/dL Urine Color Colorless Urine Appearance Clear (Clear) Urine pH 7.5 (5.0-8.0) Ur Specific [place] 1.010 (1.001-1.035) Urine Protein Negative (Negative) Urine Glucose (UA) Negative (Negative) Urine Ketones Negative (Negative) Urine Blood Negative (Negative) Urine Nitrite Negative (Negative) Urine Bilirubin Negative (Negative) Urine Urobilinogen <2.0 (<2.0) mg/dL Ur Leukocyte Esterase Negative (Negative) Disposition Clinical Impression: Abdominal pain affecting Disposition: HOME SELF-CARE Condition: Good Instructions (If sedation given, give patient instructions): Abdominal Pain in (ED) Is patient prescribed a controlled substance at d/c from ED?: No Referrals: Douglas Overton MD [Primary Care Provider] - 1-2 days
[2022-12-18 05:01] VITALS: BP 115/69; PULSE 88; RESP 18
== END 2022-12-18 04:36 | disposition home or self-care (01) ==
LOC: EC 00:04
DX: O26.892 Other specified pregnancy related conditions, second trimester (principal); R10.9 Unspecified abdominal pain; O99.512 Diseases of the respiratory system complicating pregnancy, second trimester; J45.909 Unspecified asthma, uncomplicated; O99.612 Diseases of the digestive system complicating pregnancy, second trimester; K21.9 Gastro-esophageal reflux disease without esophagitis; O99.352 Diseases of the nervous system complicating pregnancy, second trimester; F90.9 Attention-deficit hyperactivity disorder, unspecified type; F41.9 Anxiety disorder, unspecified; F32.A Depression, unspecified; Z88.5 Allergy status to narcotic agent; Z88.8 Allergy status to other drugs, medicaments and biological substances; Z90.49 Acquired absence of other specified parts of digestive tract; Z3A.14 14 weeks gestation of pregnancy
CPT/HCPCS: 36415; 80053; 81003; 85025; 96360; 99283

== ENCOUNTER 2023-02-14 09:37 | Emergency (ER) | payer BC ==
[2023-02-14 09:49] VITALS: TEMP 98.9
[2023-02-14 10:35] LABS: ALT 23 U/L (4-34); AST 26 U/L (14-36); African American GFR (CKD) >90 (>60 ml/min/1.73 sqM); Albumin 3.6 g/dL (3.5-5.0); Alkaline Phosphatase 75 U/L (38-126); Anion Gap 12 mmol/L; Blood Urea Nitrogen 7 mg/dL (7-17); Calcium 8.7 mg/dL (8.4-10.2); Carbon Dioxide 17 mmol/L (22-30); Chloride 107 mmol/L (98-107); Glucose 106 mg/dL (74-99); Magnesium 1.6 mg/dL (1.6-2.3); Non-African American GFR(CKD) >90 (>60 ml/min/1.73 sqM); Potassium 3.8 mmol/L (3.5-5.1); Sodium 136 mmol/L (137-145); Total Bilirubin 0.4 mg/dL (0.2-1.3); Total Protein 6.6 g/dL (6.3-8.2)
--- NOTE | 2023-02-14 10:46 | ED ---
Chest Pain HPI - General Chief Complaint: Chest Pain Stated Complaint: 23 weeks preg,vomiting,passout at work Time Seen by Provider: 02/14/23 10:24 Source: patient, RN notes reviewed Mode of arrival: wheelchair Limitations: no limitations - History of Present Illness Initial Comments: This is a 22-year-old female who presents to the emergency department for chest pain, dizziness, and weakness. Patient is 23 weeks and . Currently follows with Dr. 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 Denies any problems in her thus far. Denies any abdominal pain or vaginal bleeding. For the last 4 days she has had coughing, congestion, and nausea. She then started to develop mild chest pain. Today at work, she "blacked out" but did not fall, hit her head, or hit the abdomen. A coworker helped her to a seated position, and she proceeded to vomit. 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 She was also around 2 family members who tested positive for RSV. She tested negative for COVID, influenza, and RSV 2 days ago. - Related Data Home Medications Medication Instructions Recorded Confirmed Albuterol Inhaler [Ventolin Hfa 2 puff INHALATION Q4H PRN 11/24/21 01/05/22 Inhaler] Venlafaxine HCl ER [Effexor XR] 75 mg PO DAILY 11/24/21 01/05/22 Pantoprazole Sodium 20 mg PO AC-SUPPER 01/05/22 01/05/22 Previous Rx's Medication Instructions Recorded Cephalexin [Keflex] 500 mg PO Q6HR 7 Days #28 cap 02/14/23 Metoclopramide [Reglan] 10 mg PO Q6H PRN #20 tab 02/14/23 Oseltamivir [Tamiflu] 75 mg PO Q12HR 5 Days #10 cap 02/14/23 Allergies Allergy/AdvReac Type Severity Reaction Status Date / Time morphine Allergy Rash/Hives Verified 02/14/23 09:46 tramadol Allergy Nausea & Verified 02/14/23 09:46 Vomiting cigarette smoke AdvReac Unknown Verified 02/14/23 09:46 Review of Systems ROS Statement: Those systems with pertinent positive or pertinent negative responses have been documented in the HPI. ROS Other: All systems not noted in ROS Statement are negative. Past Medical History Past Medical History: Asthma, GERD/Reflux, Osteoarthritis (OA) Additional Past Medical History / Comment(s): hx stomach ulcers, UTI, kidney stones, kidney infection. per pt tachycardia chest pain tightness and n/v 180 at times. recently had holter monitor removed, irregular as well per pt. 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 OA to rt knee. hx fx to left ankle and rt knee. bilateral lower leg edema. History of Any Multi-Drug Resistant Organisms: None Reported Past Surgical History: Adenoidectomy, Cholecystectomy, Hernia Repair, Tonsillectomy Additional Past Surgical History / Comment(s): EGD x5. rt inguinal hernia repair. wisdom teeth bottom 2. Past Anesthesia/Blood Transfusion Reactions: Postoperative Nausea & Vomiting (PONV) Additional Past Anesthesia/Blood Transfusion Reaction / Comment(s): last anesthesia nausea caused admit overnight Past Psychological History: ADD/ADHD, Anxiety, Depression Smoking Status: Never smoker Past Alcohol Use History: None Reported Past Drug Use History: None Reported - Past Family History Mother Family Medical History: Asthma, Hypertension Sister(s) Family Medical History: Thyroid Disorder Father Family Medical History: COPD, Coronary Artery Disease (CAD), Deep Vein Thrombosis (DVT) General Exam Limitations: no limitations General appearance: alert, in no apparent distress Head exam: Present: atraumatic, normocephalic, normal inspection Respiratory exam: Present: normal lung sounds bilaterally. Absent: respiratory distress, wheezes, rales, rhonchi, stridor Cardiovascular Exam: Present: regular rate, normal rhythm, normal heart sounds. Absent: systolic murmur, diastolic murmur, rubs, gallop, clicks Neurological exam: Present: alert, oriented X3, CN II-XII intact Psychiatric exam: Present: normal affect, normal mood Skin exam: Present: warm, dry, intact, normal color. Absent: rash Course Vital Signs 02/14/23 02/14/23 02/14/23 09:46 10:27 12:45 Temperature 98.9 F Pulse Rate 78 84 Pulse Rate [ 76 Special Education Assistant ] Respiratory 16 18 Rate Blood Pressure 124/69 126/78 O2 Sat by Pulse 97 99 Oximetry Chest Pain MDM - MDM This is a 22-year-old female who presents to the emergency department for coughing, congestion, chest pain, and nausea in . Was pt. sent in by a medical professional or institution? @ -No Did you speak to anyone other than the patient for history? @ -No Did you review nursing and triage notes? @ -Yes, and I agree, it is accurate with regards to the patient's symptoms. Were old charts reviewed? @ -No Differential Diagnosis? @ -Differential Chest Pain: Stable Angina, Unstable Angina, STEMI, NSTEMI Aortic Dissection, Pneumothorax, Musculoskeletal, Esophageal Spasm GERD, Cholecystitis, Pancreatitis, Zoster, this is not meant to be an all-inclusive list. EKG interpreted by me (3pts min.)? @ -EKG interpreted by me demonstrating the following: Sinus rhythm. Ventricular rate 94 BPM, AL interval 161 ms, QRS duration 82 ms, QTc 380 ms. X-rays interpreted by me (1pt min.)? @ -Not obtained CT interpreted by me (1pt min.)? @ -Not obtained U/S interpreted by me (1pt. min.)? @ -Not obtained What testing was considered but not performed? (CT, X-rays, U/S, labs)? Why? @ -We discussed a chest x-ray given her symptoms and exposure. Also advised that a one time x-ray of the chest in has not shown to cause any direct harm, however there is still radiation risk. Patient opted to avoid the x-ray. What meds were considered but not given? Why? @ -None Did you discuss the management of the patient with other professionals? @ -No Did you reconcile home meds? @ -No Was smoking cessation discussed for >3mins.? @ -No Was critical care preformed (if so, how long)? @ -No Were there social determinants of health that impacted care today? How? (Home lessness, low income, unemployed, alcoholism, drug addiction, transportation, low edu. Level, literacy, decrease access to med. care, senior care, rehab)? @ -No Was there de-escalation of care discussed even if they declined? (Discuss DNR or withdrawal of care, Hospice)? @ -No What co-morbidities impacted this encounter? (DM, HTN, Smoking, COPD, CAD, Cancer, CVA, Hep., AIDS, mental health diagnosis, sleep apnea, morbid obesity)? @ -, asthma, GERD Was patient admitted / discharged? @ -Discharged. Lab work obtained and found to be unremarkable with a negative troponin. Well's Criteria is 0. We discussed a chest x-ray in given her symptoms. Advised that a one time chest x-ray has not been shown to cause any direct harm, however there is still radiation risk. Patient opted to avoid the chest x-ray at this time. Urinalysis is contaminated, but demonstrates a large amount of bacteria. Urine sent for culture. Patient reports back pain, which could be related to or UTI. Patient is positive for influenza. heart tones were ausculated and found to be WNL at 141-167 BPM. She was treated with IV fluids, Ofirmev, and Reglan with significant relief in symptoms. Will treat the patient with Tamiflu given that she is . Rx for Tamiflu, Keflex, and Reglan provided with dosing instructions reviewed. Advised getting plenty of rest, slowly advancing her diet as tolerated, and remaining well hydrated. She will otherwise follow up with her PRINTED [employer] BOARD PANELS PLATER. Undiagnosed new problem with uncertain prognosis? @ -None Drug Therapy requiring intensive monitoring for toxicity (Heparin, Nitro, Insulin, Cardizem)? @ -None Were any procedures done? @ -None Diagnosis/symptom? @ -Influenza A, UTI, nausea and vomiting in Acute, or Chronic, or Acute on Chronic? @ -Acute Uncomplicated (without systemic symptoms) or Complicated (systemic symptoms)? @ -Uncomplicated Side effects of treatment? @ -None Exacerbation, Progression, or Severe Exacerbation] @ -Not applicable Poses a threat to life or bodily function? @ -No Return precautions reviewed in depth, the patient is instructed to return to the emergency department with any new, worsening, or concerning symptoms. Patient verbalized understanding. This case was discussed in detail with the attending ED physician, Dr. Back. Presentation, findings, and treatment plan discussed in detail as well. Disposition Clinical Impression: Influenza A, UTI (urinary tract infection) during , Nausea and vomiting during Disposition: HOME SELF-CARE Instructions (If sedation given, give patient instructions): Nausea and Vomiting in (ED), Urinary Tract Infection in (ED) Additional Instructions: Return to the emergency department with any new, worsening, or concerning symptoms. Take the Tamiflu as prescribed for 5 days and the Keflex as prescribed for 7 days. You can take the Reglan up to every 6 hours as needed for nausea and vomiting. Slowly advance your diet as tolerated and remain well- hydrated. You can take Tylenol as needed for any additional headaches. Follow up with your PRINTED CIRCUIT BOARD PANELS PLATER. Prescriptions: Cephalexin [Keflex] 500 mg PO Q6HR 7 Days #28 cap Metoclopramide [Reglan] 10 mg PO Q6H PRN #20 tab PRN Reason: Nausea And Vomiting Oseltamivir [Tamiflu] 75 mg PO Q12HR 5 Days #10 cap Is patient prescribed a controlled substance at d/c from ED?: No Referrals: Douglas Overton MD [Primary Care Provider] - 1-2 days Time of Disposition: 12:18
[2023-02-14 10:51] LABS: Basophils % (A) 1 %; Eosinophils # (A) 0.1 k/uL (0-0.7); Eosinophils % (A) 2 %; HCT 33.7 % (34.0-46.0); HGB 11.8 gm/dL (11.4-16.0); Lymphocytes # (A) 1.2 k/uL (1.0-4.8); Lymphocytes % (A) 16 %; MCH 30.9 pg (25.0-35.0); MCV 88.3 fL (80.0-100.0); Mean Platelet Volume 7.3; Monocytes # (A) 0.3 k/uL (0-1.0); Monocytes % (A) 4 %; Neutrophils # (A) 5.8 k/uL (1.3-7.7); Neutrophils % (A) 76 %; Platelet Count 206 k/uL (150-450); RBC 3.82 m/uL (3.80-5.40); RDW 13.1 % (11.5-15.5); WBC 7.6 k/uL (3.8-10.6)
[2023-02-14] MEDS ORDERED: SODIUM CHLORIDE 0.9% 2,000 ML IV STA (10:56)
[2023-02-14] MEDS ORDERED: ACETAMINOPHEN IV (For NPO) 1,000 MG in EMPTY BAG 1 BAG IVPB STA (10:56)
[2023-02-14] MEDS ORDERED: METOCLOPRAMIDE 5 MG/ML 2 ML VIAL IVP STA (10:56)
[2023-02-14 11:33] LABS: Appearance,Urine Cloudy (Clear); Bacteria,Urine Many /hpf; Bilirubin,Urine Negative (Negative); Blood,Urine Negative (Negative); Color,Urine Yellow; Glucose,Urine (UA) Negative (Negative); Ketones,Urine Negative (Negative); Leukocyte Esterase,Urine Small (Negative); Mucus,Urine Moderate /hpf; Nitrite,Urine Negative (Negative); PH, Urine 5.5 (5.0-8.0); Protein,Urine Trace (Negative); RBC,Urine 2 /hpf (0-5); Specific Gravity,Urine 1.024 (1.001-1.035); Squamous Epithelial Cell,Urine 10 /hpf (0-4); Urobilinogen,Urine <2.0 mg/dL (<2.0); WBC,Urine 7 /hpf (0-5)
[2023-02-14 12:11] LABS: INR 0.9 (<1.2); Partial Thromboplastin Time 23.9 sec (22.0-30.0)
[2023-02-14 13:04] VITALS: BP 126/78; PULSE 84; RESP 18
== END 2023-02-14 12:46 | disposition home or self-care (01) ==
LOC: EC 09:37
DX: O99.512 Diseases of the respiratory system complicating pregnancy, second trimester (principal); J10.1 Influenza due to other identified influenza virus with other respiratory manifestations; O99.891 Other specified diseases and conditions complicating pregnancy; N39.0 Urinary tract infection, site not specified; O21.9 Vomiting of pregnancy, unspecified; J45.909 Unspecified asthma, uncomplicated; O99.612 Diseases of the digestive system complicating pregnancy, second trimester; K21.9 Gastro-esophageal reflux disease without esophagitis; O99.342 Other mental disorders complicating pregnancy, second trimester; F90.9 Attention-deficit hyperactivity disorder, unspecified type; F41.9 Anxiety disorder, unspecified; F32.A Depression, unspecified; Z79.899 Other long term (current) drug therapy; Z88.5 Allergy status to narcotic agent; Z88.8 Allergy status to other drugs, medicaments and biological substances; Z20.822 Contact with and (suspected) exposure to COVID-19; Z3A.23 23 weeks gestation of pregnancy
CPT/HCPCS: 36415; 93005; 80053; 83735; 84484; 85025; 85610; 85730; 81001; 87636; 99285; 96374; 96375; 96361; J2765; J0131

== ENCOUNTER 2023-04-03 09:15 | Outpatient (CLI) | payer BC ==
--- NOTE | 2023-04-03 11:41 | US ---
EXAMINATION TYPE: US venous doppler duplex LE RT DATE OF EXAM: 04/03/2023 11:35 AM COMPARISON: US CLINICAL INDICATION: Female, 22 years old with history of reddness/pain in right thigh; Pt states rig ht leg pain SIDE PERFORMED: Right TECHNIQUE: The lower extremity deep venous system is examined utilizing real time linear array sonog melanie with graded compression, doppler sonography and color-flow sonography. VESSELS IMAGED: Common Femoral Vein Deep Femoral Vein Greater Saphenous Vein * Femoral Vein Popliteal Vein Small Saphenous Vein * Proximal Calf Veins (* superficial vessels) Right Leg: Negative for DVT IMPRESSION: Grayscale, color doppler, spectral doppler imaging performed of the deep veins of the lo wer extremities. There is normal flow, compressibility, vascular waveforms.
[2023-04-03 12:10] VITALS: BP 128/72; PULSE 92; RESP 16; TEMP 97.7
== END 2023-04-03 11:44 | disposition home or self-care (01) ==
LOC: FBPOP 09:15
PROVIDERS: ATTEND Obstetrics & Gynecology
DX: M79.604 Pain in right leg (principal); Z88.8 Allergy status to other drugs, medicaments and biological substances; Z88.1 Allergy status to other antibiotic agents; Z91.018 Allergy to other foods; Z79.82 Long term (current) use of aspirin
CPT/HCPCS: 99213

== ENCOUNTER 2023-04-20 21:03 | Outpatient (CLI) | payer BC ==
[2023-04-20 21:53] LABS: Appearance,Urine Cloudy (Clear); Bacteria,Urine Occasional /hpf; Bilirubin,Urine Negative (Negative); Blood,Urine Small (Negative); Calcium Oxalate Crystals,Urine Rare /hpf; Color,Urine Yellow; Glucose,Urine (UA) Negative (Negative); Hyaline Casts,Urine 1 /lpf (0-2); Ketones,Urine 2+ (Negative); Leukocyte Esterase,Urine Large (Negative); Mucus,Urine Occasional /hpf; Nitrite,Urine Negative (Negative); PH, Urine 6.5 (5.0-8.0); Protein,Urine Trace (Negative); RBC,Urine 23 /hpf (0-5); Specific Gravity,Urine 1.023 (1.001-1.035); Squamous Epithelial Cell,Urine 18 /hpf (0-4); Urobilinogen,Urine <2.0 mg/dL (<2.0); WBC,Urine 12 /hpf (0-5)
[2023-04-20 23:16] VITALS: BP 131/87; PULSE 95; RESP 17; TEMP 97.3
--- NOTE | 2023-05-29 10:24 | P.MSEPDOC ---
Presenting Problems - Arrival Data Date of Arrival on Unit: 04/20/23 Time of Arrival on Unit: 21:03 Mode of Transport: Ambulatory - Complaint OB-Reason for Admission/Chief Complaint: Pain Comment: pt presented to triage for pelvic pressure, lower back pain, and abd pain described as cramping and sharp rating at 8/10 when at its worst Medical History - Information : 1 Para: 0 Term: 0 : 0 Abortions: Spontaneous or Elective: 0 Number of Living Children: 0 - Gestational Age Gestational Age by YOBANY (wks/days): 31 Weeks and 4 Days Review of Systems - Review of Systems Constitutional: No problems Breast: No problems ENT: No problems Cardiovascular: No problems Respiratory: No problems Gastrointestinal: No problems Genitourinary: No problems Musculoskeletal: No problems Neurological: No problems Skin: No problems Vital Signs - Temperature Temperature: 97.3 F Temperature Source: Temporal Artery Scan - Pulse Right Brachial Pulse Rate: 95 Pulse Assessment Method: Automatic Cuff - Respirations Respiratory Rate: 17 Oxygen Delivery Method: Room Air - Blood Pressure Right Arm Blood Pressure: 131/87 Blood Pressure Mean: 101 Blood Pressure Source: Automatic Cuff Medical Screen Scoring - Cervical Exam Dilation (cm): 0 Membranes: Intact - Uterine Contractions Intensity: Mild Resting: Soft to palpation - Assessment - Baby A Baseline FHR: 130 Heart Rate - NICHD Category: Category I (Normal) NST: Reactive Physician Notification - Physician Notified Physician Notified Date: 04/20/23 Physician Notified Time: 21:40 Physician: Radha Davis New Order Received: Yes - Notification Comment Comment: reactive nst, 2 ctx's while on the monitor, amnisure negative, cervical exam closed/thick/high, ua sent, urine culture pending, pt has appt in office 04/24 Maternal Triage Index - Maternal Triage Index Presenting for scheduled procedure w/no complaint: No - Stat/Priority 1 Stat Priority 1: No - Urgent/Priority 2 Urgent Priority 2: Yes Provider Notified: Radha Davis Provider Notified Time: 21:40 Criteria Met for Priority 2: pt presented to triage for pelvic pressure, lower back pain, and abd pain described as cramping and sharp rating at 8/10 when at its worst Disposition - Disposition OB Disposition: [facility]P Suite, Discharge to home, Written follow up instructions reviewed Discharge Date: 04/20/23 Discharge Time: 22:35 I agree with the RN Medical Screening Exam: Yes Physician's MSE Comment: I have neither seen nor examined the patient Case reviewed; plan agreed upon as documented in EMR&OBIX.: Yes Diagnosis: MATERNAL CARE FOR PROBLEM, UNSP, THIRD TRIMESTER, UNSP
== END 2023-04-20 22:35 | disposition home or self-care (01) ==
LOC: FBPOP 21:03
PROVIDERS: ATTEND Obstetrics & Gynecology
DX: O26.893 Other specified pregnancy related conditions, third trimester (principal); O36.93X1 Maternal care for fetal problem, unspecified, third trimester, fetus 1; R10.9 Unspecified abdominal pain; M54.50 Low back pain, unspecified; Z3A.31 31 weeks gestation of pregnancy; Z91.040 Latex allergy status; Z88.8 Allergy status to other drugs, medicaments and biological substances; Z88.5 Allergy status to narcotic agent
CPT/HCPCS: 59025; 81001; 84112; 87086; 99213

== ENCOUNTER 2023-04-27 14:05 | Outpatient (CLI) | payer BC ==
[2023-04-27 15:09] VITALS: BP 139/79; PULSE 98; RESP 15; TEMP 98.7
--- NOTE | 2023-04-27 15:19 | US ---
EXAMINATION TYPE: US OB limited DATE OF EXAM: 04/27/2023 COMPARISON: US 11/02/2022 CLINICAL INDICATION: Female, 22 years old with history of NISSA; NISSA Rule out SROM EXAM PERFORMED: Transabdominal (TA) GESTATIONAL AGE / DATING Physician Established: (32 weeks/4 days) EDC: 06/18/2023 No growth performed on today?s study per ordering physician SURVEY NISSA: 26.4 cm Polyhydraminos Ultrasound evidence of premature rupture of membranes? 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
--- NOTE | 2023-05-29 10:29 | P.MSEPDOC ---
Presenting Problems - Arrival Data Date of Arrival on Unit: 04/27/23 Time of Arrival on Unit: 14:05 Mode of Transport: Portable - Complaint OB-Reason for Admission/Chief Complaint: Rule Out SROM Comment: 04/26 3580 Medical History - Information : 1 Para: 0 Term: 0 : 0 Abortions: Spontaneous or Elective: 0 Number of Living Children: 0 - Gestational Age Gestational Age by YOBANY (wks/days): 32 Weeks and 4 Days - History Complications: Other Comment: Polyhydramnios, cholestasis, anemia, kidney stones Review of Systems - Review of Systems Constitutional: No problems Breast: No problems ENT: No problems Cardiovascular: No problems Respiratory: No problems Gastrointestinal: No problems Genitourinary: No problems Musculoskeletal: No problems Neurological: No problems Skin: No problems Vital Signs - Temperature Temperature: 98.7 F Temperature Source: Temporal Artery Scan - Pulse Right Brachial Pulse Rate: 98 Pulse Assessment Method: Automatic Cuff - Respirations Respiratory Rate: 15 Oxygen Delivery Method: Room Air O2 Sat by Pulse Oximetry: 99 - Blood Pressure Right Arm Sitting Blood Pressure: 139/79 Blood Pressure Mean: 99 Blood Pressure Source: Automatic Cuff Medical Screen Scoring - Assessment - Baby A Baseline FHR: 120 Heart Rate - NICHD Category: Category I (Normal) Physician Notification - Physician Notified Physician Notified Date: 04/27/23 Physician Notified Time: 14:46 Physician: Radha Davis New Order Received: Yes (DISCHARGE WITH INSTRUCTION) Maternal Triage Index - Stat/Priority 1 Stat Priority 1: Yes Provider Notified: Radha Davis Provider Notified Time: 14:35 Criteria Met for Priority 1: 32.4 WEEKS RULE OUT RUPTURE, ORDERS U/S FOR NISSA Disposition - Disposition OB Disposition: Triage, Discharge to home, Written follow up instructions reviewed Discharge Date: 04/27/23 Discharge Time: 14:46 I agree with the RN Medical Screening Exam: Yes Physician's MSE Comment: I have neither seen nor examined the patient Case reviewed; plan agreed upon as documented in EMR&OBIX.: Yes Diagnosis: MATERNAL CARE FOR PROBLEM, UNSP, THIRD * DO NOT USE *
== END 2023-04-27 15:20 | disposition home or self-care (01) ==
LOC: FBPOP 14:05
PROVIDERS: ATTEND Obstetrics & Gynecology
DX: O47.03 False labor before 37 completed weeks of gestation, third trimester (principal); Z3A.32 32 weeks gestation of pregnancy; Z91.040 Latex allergy status; Z88.8 Allergy status to other drugs, medicaments and biological substances; Z88.5 Allergy status to narcotic agent
CPT/HCPCS: 59025; 76815; 84112; 99213

== ENCOUNTER 2023-05-15 12:42 | Outpatient (CLI) | payer BC ==
[2023-05-15 13:44] VITALS: BP 130/70; PULSE 113; RESP 16; TEMP 97.7
[2023-05-15 14:13] LABS: Appearance,Urine Cloudy (Clear); Bacteria,Urine Rare /hpf; Bilirubin,Urine Negative (Negative); Blood,Urine Negative (Negative); Calcium Oxalate Crystals,Urine Occasional /hpf; Color,Urine Yellow; Glucose,Urine (UA) Negative (Negative); Ketones,Urine Negative (Negative); Leukocyte Esterase,Urine Large (Negative); Mucus,Urine Few /hpf; Nitrite,Urine Negative (Negative); Protein,Urine 1+ (Negative); RBC,Urine 4 /hpf (0-5); Specific Gravity,Urine 1.026 (1.001-1.035); Squamous Epithelial Cell,Urine 14 /hpf (0-4); Urobilinogen,Urine <2.0 mg/dL (<2.0); WBC,Urine 5 /hpf (0-5)
--- NOTE | 2023-06-21 12:11 | P.MSEPDOC ---
Presenting Problems - Arrival Data Date of Arrival on Unit: 05/15/23 Time of Arrival on Unit: 12:42 Mode of Transport: Ambulatory - Complaint OB-Reason for Admission/Chief Complaint: Possible Onset of Labor, Rule Out SROM, Signs/Symptoms UTI Comment: pt complains of headache,nausea,irregular contractions, lost mucus plug, possible ROM, back pain like kidney stones Medical History - Information : 1 Para: 0 Term: 0 : 0 Abortions: Spontaneous or Elective: 0 Number of Living Children: 0 - Gestational Age Gestational Age by YOBANY (wks/days): 35 Weeks and 1 Days - History Complications: Other Comment: cholestasis,anemia Review of Systems - Review of Systems Constitutional: No problems Breast: No problems ENT: No problems Cardiovascular: No problems Respiratory: No problems Gastrointestinal: No problems Genitourinary: Dysuria Musculoskeletal: No problems Neurological: No problems Skin: No problems Vital Signs - Temperature Temperature: 97.7 F Temperature Source: Temporal Artery Scan - Pulse Right Brachial Pulse Rate: 113 Pulse Assessment Method: Automatic Cuff - Respirations Respiratory Rate: 16 Oxygen Delivery Method: Room Air O2 Sat by Pulse Oximetry: 98 - Blood Pressure Right Arm Sitting Blood Pressure: 130/70 Blood Pressure Mean: 90 Blood Pressure Source: Automatic Cuff Medical Screen Scoring - Cervical Exam Dilation (cm): 0 Effacement (%): 0 Station: -3 Membranes: Intact - Uterine Contractions Frequency From (mins): 0 Frequency To (mins): 0 - Assessment - Baby A Baseline FHR: 130 Heart Rate - NICHD Category: Category I (Normal) NST: Reactive Physician Notification - Physician Notified Physician Notified Date: 05/15/23 Physician Notified Time: 14:56 Physician: Radha Davis New Order Received: Yes (urine cultured, d/c with instruction follow up at next appt in 3 days) Maternal Triage Index - Maternal Triage Index Presenting for scheduled procedure w/no complaint: No - Stat/Priority 1 Stat Priority 1: No - Urgent/Priority 2 Urgent Priority 2: Yes Provider Notified: Radha Davis Provider Notified Time: 13:24 Criteria Met for Priority 2: 35.1 rule out rupture, rule out uti, rule out hy pertension Disposition - Disposition OB Disposition: Triage, Written follow up instructions reviewed Discharge Date: 05/15/23 Discharge Time: 15:04 I agree with the RN Medical Screening Exam: Yes Physician's MSE Comment: I have neither seen nor examined the patient Case reviewed; plan agreed upon as documented in EMR&OBIX.: Yes Diagnosis: MATERNAL CARE FOR PROBLEM, UNSP, THIRD * DO NOT USE *
== END 2023-05-15 15:03 | disposition home or self-care (01) ==
LOC: FBPOP 12:42
PROVIDERS: ATTEND Obstetrics & Gynecology
DX: O47.03 False labor before 37 completed weeks of gestation, third trimester (principal); O99.891 Other specified diseases and conditions complicating pregnancy; O99.02 Anemia complicating childbirth; O26.643 Intrahepatic cholestasis of pregnancy, third trimester; Z3A.35 35 weeks gestation of pregnancy; Z88.5 Allergy status to narcotic agent; Z91.040 Latex allergy status; Z88.8 Allergy status to other drugs, medicaments and biological substances
CPT/HCPCS: 59025; 81001; 84112; 87086; 99213

== ENCOUNTER 2023-05-26 23:10 | Outpatient (CLI) | payer BC ==
[2023-05-27 00:28] VITALS: BP 131/82; PULSE 100; RESP 16; TEMP 97.3
--- NOTE | 2023-07-10 09:05 | P.MSEPDOC ---
Presenting Problems - Arrival Data Date of Arrival on Unit: 05/26/23 Time of Arrival on Unit: 23:12 Mode of Transport: Ambulatory - Complaint OB-Reason for Admission/Chief Complaint: Decreased Movement Medical History - Information : 1 Para: 0 Term: 0 : 0 Abortions: Spontaneous or Elective: 0 Number of Living Children: 0 - Gestational Age Gestational Age by YOBANY (wks/days): 36 Weeks and 5 Days - History Complications: Other Comment: Cholestasis and Oligohydramnios Review of Systems - Review of Systems Constitutional: No problems Breast: No problems ENT: No problems Cardiovascular: No problems Respiratory: No problems Gastrointestinal: No problems Genitourinary: No problems Musculoskeletal: No problems Neurological: No problems Skin: No problems Vital Signs - Temperature Temperature: 97.3 F Temperature Source: Temporal Artery Scan - Pulse Right Brachial Pulse Rate: 100 Pulse Assessment Method: Automatic Cuff - Respirations Respiratory Rate: 16 Oxygen Delivery Method: Room Air O2 Sat by Pulse Oximetry: 99 - Blood Pressure Right Arm Blood Pressure: 131/82 Blood Pressure Mean: 98 Blood Pressure Source: Automatic Cuff Medical Screen Scoring - Assessment - Baby A Baseline FHR: 140 Heart Rate - NICHD Category: Category I (Normal) NST: Reactive Physician Notification - Physician Notified Physician Notified Date: 05/26/23 Physician Notified Time: 23:36 Physician: Otilia Thomson New Order Received: Yes (discharge) - Notification Comment Comment: report given to Dr. Thomson on patient on patient who presents to [facility] for no movement since 1700. Reactive NST obtained. Patient reports feeling movement. Blood pressure of 131/82 then 119/65 reported. Orders received to discharge patient home and follow up monday for scheduled induction with Dr. Davis. Maternal Triage Index - Stat/Priority 1 Stat Priority 1: No - Urgent/Priority 2 Urgent Priority 2: Yes Provider Notified: Otilia Thomson Provider Notified Time: 23:36 Criteria Met for Priority 2: decreased movement, called with report when reactive NST was obtained. Disposition - Disposition OB Disposition: Discharge to home Discharge Date: 05/26/23 Discharge Time: 23:40 I agree with the RN Medical Screening Exam: Yes Case reviewed; plan agreed upon as documented in EMR&OBIX.: Yes Diagnosis: DECREASED MOVEMENTS, THIRD TRIMESTER, FETUS 1
== END 2023-05-26 23:40 ==
LOC: FBPOP 23:10
PROVIDERS: ATTEND Obstetrics & Gynecology Obstetrics
DX: O36.8131 Decreased fetal movements, third trimester, fetus 1 (principal); O26.643 Intrahepatic cholestasis of pregnancy, third trimester; O41.03X1 Oligohydramnios, third trimester, fetus 1; Z3A.36 36 weeks gestation of pregnancy; Z91.040 Latex allergy status; Z88.5 Allergy status to narcotic agent; Z88.8 Allergy status to other drugs, medicaments and biological substances
CPT/HCPCS: 59025; 99213

== ENCOUNTER 2023-05-29 17:00 | Inpatient (IN) | payer BC ==
--- NOTE | 2023-05-29 20:22 | P.HPOB ---
History of Present Illness H&P Date: 05/29/23 Chief Complaint: Medical induction of labor Ms. Hutchison is a 22 year old at 37 weeks and 1 day with EDC of 06/18/2023 who presents for scheduled medical induction of labor for intrahepatic cholestasis of (fasting bile acids 13). The has been otherwise uncomplicated. Growth US at 33 weeks estimates the fetus at 62%ile. work-up: blood type AB positive, antibody screen negative, rubella immune, VDRL non-reactive, HBsAg negative, HIV negative, HCV Ab negative, gonorrhea negative, chlamydia negative, 1 hour GTT within normal limits, GBS negative. Past Medical History Past Medical History: Asthma, GERD/Reflux, Osteoarthritis (OA) Additional Past Medical History / Comment(s): hx stomach ulcers, UTI, kidney stones, kidney infection. per pt tachycardia chest pain tightness and n/v 180 at times. recently had holter monitor removed, irregular as well per pt. 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 OA to rt knee. hx fx to left ankle and rt knee. bilateral lower leg edema. History of Any Multi-Drug Resistant Organisms: None Reported Past Surgical History: Adenoidectomy, Cholecystectomy, Hernia Repair, Tonsillectomy Additional Past Surgical History / Comment(s): EGD x5. rt inguinal hernia repair. wisdom teeth bottom 2. Past Anesthesia/Blood Transfusion Reactions: Postoperative Nausea & Vomiting (PONV) Additional Past Anesthesia/Blood Transfusion Reaction / Comment(s): last anesthesia nausea caused admit overnight Smoking Status: Never smoker - Past Family History Mother Family Medical History: Asthma, Hypertension Sister(s) Family Medical History: Thyroid Disorder Father Family Medical History: COPD, Coronary Artery Disease (CAD), Deep Vein Thrombosis (DVT) Medications and Allergies Home Medications Medication Instructions Recorded Confirmed Type Aspirin 81 mg PO DAILY 04/03/23 05/26/23 History Vit No.179/Iron/Folic 1 tab PO DAILY 04/03/23 05/26/23 History [ Tablet] ursodioL [Ursodiol] 300 mg PO TID 04/20/23 05/26/23 History Iron 1 capsule PO DAILY 05/15/23 05/26/23 History Allergies Allergy/AdvReac Type Severity Reaction Status Date / Time morphine Allergy Rash/Hives Verified 05/26/23 23:14 tramadol Allergy Nausea & Verified 05/26/23 23:14 Vomiting cigarette smoke AdvReac Unknown Verified 05/26/23 23:14 Exam Focused physical exam is performed. This is a healthy-appearing in no apparent distress. Breathing is non-labored. Abdomen is gravid and non-tender. Cervical exam is 1/50/-3. Sterile speculum is used to place a cooks catheter with 60cc in each balloon. Extremities non-tender and non-edematous. heart tones are reactive and reassuring on NST. Assessment and Plan Assessment: 22 year old at 37 weeks and 0 days here for medical induction of labor Plan: Admit, clear liquid diet while cooks catheter in place, low dose oxytocin, continuous EFM and tocometer, close monitoring of patient. Time with Patient: Less than 30
[2023-05-29 20:39] LABS: Basophils % (A) 0 %; Eosinophils # (A) 0.1 k/uL (0-0.7); Eosinophils % (A) 0 %; HCT 32.2 % (34.0-46.0); HGB 10.6 gm/dL (11.4-16.0); Lymphocytes # (A) 1.7 k/uL (1.0-4.8); Lymphocytes % (A) 13 %; MCH 28.3 pg (25.0-35.0); MCHC 32.8 g/dL (31.0-37.0); MCV 86.2 fL (80.0-100.0); Mean Platelet Volume 7.8; Monocytes # (A) 0.6 k/uL (0-1.0); Monocytes % (A) 5 %; Neutrophils # (A) 10.2 k/uL (1.3-7.7); Neutrophils % (A) 80 %; Platelet Count 219 k/uL (150-450); RBC 3.74 m/uL (3.80-5.40); RDW 14.4 % (11.5-15.5); WBC 12.8 k/uL (3.8-10.6)
[2023-05-29] MEDS ORDERED: CARBOPROST TROMETHAMINE 250 MCG/ML 1 ML AMP IM PRN (20:47)
[2023-05-29] MEDS ORDERED: miSOPROStoL 200 MCG TAB PO PRN (20:47)
[2023-05-29] MEDS ORDERED: OXYTOCIN 10 UNIT/ML 1 ML VIAL IM PRN (20:47)
[2023-05-29] MEDS ORDERED: TERBUTALINE 1 MG/ML VIAL SQ PRN (20:47)
[2023-05-29] MEDS ORDERED: METHYLERGONOVINE 0.2 MG/ML 1 ML AMP IM PRN (20:47)
[2023-05-29] MEDS ORDERED: TRANEXAMIC 1,000 MG/100ML-NACL 1,000 MG in EMPTY BAG 1 BAG IV PRN (20:47)
[2023-05-29] MEDS ORDERED: LIDOCAINE 0.5% (PF) 5 MG/ML (50 ML SDV) SQ PRN (20:47)
[2023-05-29] MEDS: LACTATED RINGERS 1,000 ML IV SCH (21:01)
[2023-05-29] MEDS: OXYTOCIN 30 UNITS/500 ML NS 30 UNIT in SALINE 1 500ML.BAG IV SCH (21:02)
[2023-05-30] MEDS: ACETAMINOPHEN IV (For NPO) 1,000 MG in EMPTY BAG 1 BAG IVPB PRN (00:36)
[2023-05-30] MEDS ORDERED: TRANEXAMIC 1,000 MG/100ML-NACL 1,000 MG in EMPTY BAG 1 BAG IV PRN (13:51)
[2023-05-30] MEDS ORDERED: OXYTOCIN 10 UNIT/ML 1 ML VIAL IM PRN (13:51)
[2023-05-30] MEDS ORDERED: METHYLERGONOVINE 0.2 MG/ML 1 ML AMP IM PRN (13:51)
[2023-05-30] MEDS ORDERED: CARBOPROST TROMETHAMINE 250 MCG/ML 1 ML AMP IM PRN (13:51)
[2023-05-30] MEDS ORDERED: miSOPROStoL 200 MCG TAB PO PRN (13:51)
[2023-05-30] MEDS: CITRIC ACID-SODIUM CITRATE 15 ML CUP PO ONE (14:04)
[2023-05-30] MEDS ORDERED: KETOROLAC 30 MG/ML 1 ML VIAL ONE (14:22)
[2023-05-30] MEDS ORDERED: ONDANSETRON 4 MG/2 ML VIAL ONE (14:22)
[2023-05-30] MEDS ORDERED: fentaNYL (PF) 50 MCG/ML 2 ML AMP ONE (14:22)
[2023-05-30] MEDS ORDERED: OXYTOCIN 30 UNITS/500 ML NS BAG IV ONE (14:22)
[2023-05-30] MEDS ORDERED: PHENYLEPHRINE-0.9% NACL SYG 1,000 MCG/10 ML SYRINGE ONE (14:22)
[2023-05-30] MEDS ORDERED: diphenhydrAMINE 50 MG CAP PO PRN (15:27)
[2023-05-30] MEDS ORDERED: ZOLPIDEM 5 MG TAB PO PRN (15:27)
[2023-05-30] MEDS ORDERED: diphenhydrAMINE 50 MG/ML 1 ML VIAL IVP PRN ×2 (15:27)
[2023-05-30] MEDS ORDERED: METOCLOPRAMIDE 5 MG/ML 2 ML VIAL IVP PRN (15:27)
[2023-05-30] MEDS ORDERED: ONDANSETRON 4 MG/2 ML VIAL IVP PRN (15:27)
[2023-05-30] MEDS ORDERED: NALOXONE 0.4 MG/ML 1 ML VIAL IV PRN (15:27)
[2023-05-30] MEDS ORDERED: diphenhydrAMINE 25 MG CAP PO PRN (15:27)
--- NOTE | 2023-05-30 15:27 | P.OP ---
Date of Procedure: 05/30/23 Preoperative Diagnosis: 1. Term IUP at 37 weeks 2. Face Presentation, Mentum Anterior 3. Maternal Request 4. Intrahepatic Cholestasis of Postoperative Diagnosis: Same Procedure(s) Performed: Primary Lower Transverse Section Implants: None Anesthesia: spinal Surgeon: Radha Davis Upholstery Sewer #1: Aleksandra Gonzalez Estimated Blood Loss (ml): 1,000 IV fluids (ml): 1,000 Urine output (ml): 200 (clear yellow) Pathology: other (placenta) Condition: stable Disposition: floor Indications for Procedure: Ms. Hutchison is a 22 year old at 37 weeks who presented for induction of labor for intrahepatic cholestasis of . Cooks catheter was inserted and left in place overnight with low-dose oxytocin. After cooks catheter removal, the patient was 4 centimeters dilated and AROM was undertaken. On cervical examination, it was noted that there was a face presentation with mentum anterior. Position changes were attempted for approximately 3 hours with pitocin per protocol. On reexamination, there was a persistent face presentation. At this time the patient elected to proceed with primary section. The risks, benefits, and alternatives to section were discussed with the patient including risk of bleeding, infection, damage to surrounding structures including bladder/bowels/ureters, and post-operative VTE. The patient understa nds these risks and desires to proceed with section. Operative Findings: Colorless amniotic fluid. Viable male infant weighing 6 pounds and 13 ounces (3100 grams) with apgars of 9/9. Normal uterus, bilateral fallopian tubes and ovaries. Description of Procedure: The patient was taken to the operating room where spinal anesthesia was found to be adequate. Two grams of Ancef were given for infection prophylaxis. Vaginal prep was performed prior to the surgery. She was prepared and draped in the dorsal supine position with a leftward tilt. A Pfannenstiel skin incision was made with the scalpel. The incision was carried down to the fascia with a bovie. The fascia was incised and extended laterally with Quintanilla scissors. The superior aspect of the fascia was grasped with Theresa clamps. The underlying rectus muscle was dissected off sharply with Quintanilla scissors. In a similar fashion, the inferior aspect of the fascia was elevated with Theresa clamps and the rectus muscle and pyramidalis were dissected off. Excellent hemostasis was achieved with the bovie. The rectus muscle was in the midline down to the level of the pubic symphysis. Pre-peritoneal fatty tissue was bluntly dissected to expose the peritoneum. The peritoneum was found to be free of adherent bowel and entered sharply with Quintanilla scissors. The peritoneal incision was extended superiorly and inferiorly to the bladder reflection with good visualization of the bladder. The bladder blade was inserted and vesicouterine peritoneum was identified. Intraabdominal survey revealed scant, clear peritoneal fluid and the thinned-out lower uterine segment. The vesicouterine peritoneum was opened with scissors and the bladder flap was developed. The bladder blade was repositioned to keep the bladder out of the operative field. The lower uterine segment was incised with a scalpel. The amniotic sac was ruptured with an Allis clamp and clear fluid was noted. The uterine incision was extended bluntly with lateral and upward traction. The fetus was in a face presentation. The head was elevated out of the pelvis with special attention paid to avoid using the uterine incision as a fulcrum. Gentle fundal pressure was applied once the head was brought into the incision. The infant was delivered with no difficulty. The mouth and nose were suctioned with a bulb. The cord was clamped and cut. was noted to be spontaneously crying. The infant was handed off to the ecological risk assessor. IV oxytocin was initiated to facilitate uterine contractions. The placenta was delivered intact with manual massage of uterine fundus. The uterus was then exteriorized and the inside of the uterus was gently wiped with a lap sponge to assure complete removal of placental membranes. The uterine incision was closed with a 0-Polysorb suture in a running locked fashion. A second imbricating layer of 0-Polysorb was placed along the incision. The ovaries and tubes were found to be normal. The uterus, tubes, and ovaries were then gently returned to the abdominal cavity. The blood clots and fluid were wiped out of the abdomen and pelvis with moist laparotomy sponges. The pelvis was copiously suction irrigated.The uterine incision was reinspected and excellent hemostasis was noted. The fascial layer was closed with a 0-Vicryl suture. The subcutaneous tissue was reapproximated with 2-0 Plain Gut. The skin was closed with 4-0 Monocryl in a subcuticular fashion. The patient tolerated the procedure well. All the counts were correct times two. The patient was taken to the recovery room in a stable condition.
[2023-05-30] MEDS: HYDROmorphone PCA 10 MG/50 ML BAG IV PRN (17:35)
[2023-05-30] MEDS: LACTATED RINGERS 1,000 ML IV SCH (20:24)
[2023-05-30] MEDS: ACETAMINOPHEN TAB 500 MG TAB PO SCH (20:35)
[2023-05-30] MEDS: KETOROLAC 15 MG/ML 1 ML VIAL IVP SCH (21:37)
[2023-05-30] MEDS: SENNOSIDES-DOCUSATE SODIUM 1 EACH TAB PO SCH (21:38)
[2023-05-31] MEDS: IBUPROFEN 600 MG TAB PO SCH (00:34)
[2023-05-31 08:11] LABS: Basophils % (A) 0 %; Eosinophils # (A) 0.1 k/uL (0-0.7); Eosinophils % (A) 1 %; HCT 28.3 % (34.0-46.0); HGB 9.2 gm/dL (11.4-16.0); Lymphocytes # (A) 1.9 k/uL (1.0-4.8); Lymphocytes % (A) 17 %; MCH 28.4 pg (25.0-35.0); MCHC 32.4 g/dL (31.0-37.0); MCV 87.5 fL (80.0-100.0); Monocytes # (A) 0.6 k/uL (0-1.0); Monocytes % (A) 6 %; Neutrophils # (A) 8.1 k/uL (1.3-7.7); Neutrophils % (A) 74 %; Platelet Count 180 k/uL (150-450); RBC 3.23 m/uL (3.80-5.40); RDW 14.6 % (11.5-15.5); WBC 10.9 k/uL (3.8-10.6)
[2023-05-31] MEDS: SIMETHICONE 80 MG CHEWABLE PO PRN (08:27)
--- NOTE | 2023-05-31 08:29 | P.PNOBGPC ---
Subjective - Subjective Principal diagnosis: s/p primary section Interval history: The patient is doing well this morning. Pain is better controlled than yesterday. She is ambulating, voiding, passing flatus, and tolerating PO. Lochia is moderate. Infant is doing well at the bedside, working on breast feeding. She denies chest pain, shortness of breath, fevers, chills, pain/swelling in the legs. Patient reports: Reports appetite normal, Reports voiding normally, Reports pain well controlled, Reports ambulating normally : doing well Objective - Vital Signs Latest vital signs: Vital Signs Temp Pulse Resp BP Pulse Ox 05/31/23 04:00 98.9 F 77 18 111/71 98 05/30/23 23:30 99.4 F 77 17 99/65 98 05/30/23 20:05 99.4 F 87 12 103/63 97 05/30/23 17:20 97.8 F 77 14 140/68 05/30/23 17:05 77 16 101/59 05/30/23 16:50 74 16 109/65 95 05/30/23 16:35 72 16 94/57 95 05/30/23 16:20 70 14 95/52 05/30/23 16:05 97.0 F L 76 14 87/53 05/30/23 15:50 73 16 90/53 05/30/23 15:35 70 14 84/51 94 L 05/30/23 15:20 75 14 81/42 95 Intake and Output 05/30/23 05/31/23 05/31/23 22:59 06:59 14:59 Intake Total 500 Output Total 1100 650 Balance -1100 -150 Intake: IV 500 Output: Urine 100 650 Uretheral (Wilson) 400 Output, Quantitative 1000 Blood Loss Other: Voiding Method Indwelling Catheter - Exam Extremities: Present: normal Abdomen: Present: normal appearance, soft Incision: Present: normal, dry, intact Uterus: Present: normal, firm - Labs Labs: Abnormal Lab Results - Last 24 Hours (Table) 05/31/23 Range/Units 07:43 WBC 10.9 H (3.8-10.6) k/uL RBC 3.23 L (3.80-5.40) m/uL Hgb 9.2 L (11.4-16.0) gm/dL Hct 28.3 L (34.0-46.0) % Neutrophils # 8.1 H (1.3-7.7) k/uL Assessment and Plan Assessment: 22 year old now POD#1 s/p primary section 2/2 face presentation and maternal request Plan: 1. Postoperative. Patient meeting all postoperative milestones appropriately. 2. Acute Blood Loss Anemia. Iron PO qDay. 3. Viable male . Plan for circumcision tomorrow. Doing well at bedside, working on nursing. Dispo: Anticipate d/c home tomorrow on POD#2.
[2023-05-31] MEDS: FERROUS SULFATE 325 MG TAB PO SCH (13:08)
[2023-06-01 01:00] VITALS: RESP 16
[2023-06-01 08:42] VITALS: BP 119/80; PULSE 71; TEMP 98.7
--- NOTE | 2023-06-01 08:44 | P.DS ---
Providers Date of admission: 05/29/23 17:14 Expected date of discharge: 06/01/23 Attending physician: Radha Davis MD Primary care physician: Douglas Benjaminhven [facility] Course: Ms. Hutchison is a 22 year old now POD#2 s/p primary section 2/ face presentation and maternal request. The was uncomplicated. The patient is doing well this morning and had no acute events overnight. She has no complaints this morning. She reports minimal lochia, passing flatus, voiding without difficulty, ambulating, and eating/drinking without nausea or vomiting. doing well at bedside, s/p circumcision. She denies chest pain, shortness of breathing, fevers, or chills overnight. She denies pain or swelling in the legs. Postoperative restrictions are reviewed with the patient including pelvic rest for 6 weeks, no lifting heavier than 15 pounds for 6 weeks. The patient is encouraged to call the office if she experiences any heavy bleeding, foul- smelling discharge, breast complaints, or any if she has any other concerns. She will follow up in the office with in 2 weeks for postoperative exam. She will go home with Motrin and Tylenol prn for pain. All questions are answered. Assessment: 22 year old now POD#2 s/p primary Patient Condition at Discharge: Good Plan - Discharge Summary Discharge Rx Participant: No New Discharge Prescriptions: New Ibuprofen [Motrin] 600 mg PO Q6HR PRN #30 tab PRN Reason: Mild Pain (Scale 1 To 3) Acetaminophen Tab [Tylenol] 650 mg PO Q6H PRN #30 tab PRN Reason: Mild Pain (Scale 1 To 3) No Action Aspirin 81 mg PO DAILY ursodioL [Ursodiol] 300 mg PO TID Iron 1 capsule PO DAILY Vit No.179/Iron/Folic [ Tablet] 1 tab PO DAILY Discharge Medication List Aspirin 81 mg PO DAILY 04/03/23 [History] Vit No.179/Iron/Folic [ Tablet] 1 tab PO DAILY 04/03/23 [History] ursodioL [Ursodiol] 300 mg PO TID 04/20/23 [History] Iron 1 capsule PO DAILY 05/15/23 [History] Acetaminophen Tab [Tylenol] 650 mg PO Q6H PRN #30 tab 06/01/23 [Rx] Ibuprofen [Motrin] 600 mg PO Q6HR PRN #30 tab 06/01/23 [Rx] Follow up Appointment(s)/Referral(s): Radha Davis MD [STAFF PHYSICIAN] - 2 Weeks (Post Op Appointment 2023 at 01:15pm) Activity/Diet/Wound Care/Special Instructions: Instructions 1. Do not begin any exercise program for 3 weeks. 2. Do not resume sexual relations for 6 weeks or longer if uncomfortable. 3. You may take tub baths or showers at any time. 4. You may use tampons if desired after 6 weeks. 5. Keep any areas repaired with stitches clean and dry. 6. If you are not nursing, wear a good fitting, supportive bra during the day and limit fluid intake for at least 1 week to prevent breast engorgement. 7. Call the office, , within the next week to make appointment for your 6 week checkup if it has not already been made. 8. Report any of the following occurrences to the doctor promptly: a. Heavy, excessive bleeding b. Chills, fever c. Burning or frequency of urination d. Pain or redness and breasts if nursing e. Increasing pain or swelling of vulva (stitches). In addition to the above instructions, the following additional should be followed: 1. No heavy lifting or straining (exercising) until after 6 week checkup. 2. Keep abdominal incision clean and dry: You may wear a dressing if more comfortable. 3. Make office appointment for 2 weeks after delivery date. Discharge Disposition: HOME SELF-CARE
== END 2023-06-01 12:15 | disposition home or self-care (01) | DRG 787 ==
LOC: 4FBP 17:14
PROVIDERS: ADMIT Obstetrics & Gynecology; ATTEND Obstetrics & Gynecology
PROC: 3E033VJ Introduction of Other Hormone into Peripheral Vein, Percutaneous Approach (ICD-10-PCS; principal; 2023-05-30 06:00)
PROC: 10D00Z1 Extraction of Products of Conception, Low, Open Approach (ICD-10-PCS; principal; 2023-05-30 06:00)
PROC: 0U7C7ZZ Dilation of Cervix, Via Natural or Artificial Opening (ICD-10-PCS; principal; 2023-05-30 06:00)
DX: O26.643 Intrahepatic cholestasis of pregnancy, third trimester (principal); D62 Acute posthemorrhagic anemia; O32.3XX0 Maternal care for face, brow and chin presentation, not applicable or unspecified; O99.52 Diseases of the respiratory system complicating childbirth; J45.909 Unspecified asthma, uncomplicated; K21.9 Gastro-esophageal reflux disease without esophagitis; O99.02 Anemia complicating childbirth; H40.9 Unspecified glaucoma; Z79.82 Long term (current) use of aspirin; Z28.21 Immunization not carried out because of patient refusal; Z87.440 Personal history of urinary (tract) infections; Z88.5 Allergy status to narcotic agent; Z91.040 Latex allergy status; Z3A.37 37 weeks gestation of pregnancy; Z37.0 Single live birth
CPT/HCPCS: 85025; 86850; 86900; 86901; 88307

== ENCOUNTER 2024-06-06 17:17 | Emergency (ER) | payer OTHER ==
[2024-06-06 17:24] VITALS: RESP 18; TEMP 97.7
--- NOTE | 2024-06-06 18:26 | ED ---
General Adult HPI - General Chief complaint: Abdominal Pain Stated complaint: ABD Pain/Vomiting Time Seen by Provider: 06/06/24 17:55 Source: patient, RN notes reviewed Mode of arrival: ambulatory Limitations: no limitations - History of Present Illness Initial comments: 23-year-old female presents to the emergency department for evaluation of lower abdominal/pelvic pain. Patient states that the pain started around 8 AM. She notes that is progressively got worse throughout the day. She states that she has had to take more breaks at work today because of this. She reports taking Tylenol and Motrin for the pain without any significant relief. She also took Zofran and Imodium for her symptoms. She reports subjective fever at home. Endorses nausea, vomiting, diarrhea. She has a history of PCOS and is on metformin. - Related Data Home Medications Medication Instructions Recorded Confirmed Aspirin 81 mg PO DAILY 04/03/23 05/29/23 Vit No.179/Iron/Folic 1 tab PO DAILY 04/03/23 05/29/23 [ Tablet] ursodioL [Ursodiol] 300 mg PO TID 04/20/23 05/29/23 Iron 1 capsule PO DAILY 05/15/23 05/29/23 Previous Rx's Medication Instructions Recorded Acetaminophen Tab [Tylenol] 650 mg PO Q6H PRN #30 tab 06/01/23 Ibuprofen [Motrin] 600 mg PO Q6HR PRN #30 tab 06/01/23 Ondansetron Odt [Zofran Odt] 4 mg PO Q8HR PRN #10 tab 06/07/24 Allergies Allergy/AdvReac Type Severity Reaction Status Date / Time latex Allergy Rash/Hives Verified 06/06/24 17:24 morphine Allergy Rash/Hives Verified 06/06/24 17:24 tramadol Allergy Nausea & Verified 06/06/24 17:24 Vomiting cigarette smoke AdvReac Unknown Verified 06/06/24 17:24 Review of Systems ROS Statement: Those systems with pertinent positive or pertinent negative responses have been documented in the HPI. ROS Other: All systems not noted in ROS Statement are negative. Past Medical History Past Medical History: Asthma, GERD/Reflux, Osteoarthritis (OA) Additional Past Medical History / Comment(s): hx stomach ulcers, UTI, kidney stones, kidney infection. per pt tachycardia chest pain tightness and n/v 180 at times. recently had holter monitor removed, irregular as well per pt. 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 OA to rt knee. hx fx to left ankle and rt knee. bilateral lower leg edema. History of Any Multi-Drug Resistant Organisms: None Reported Past Surgical History: Adenoidectomy, Cholecystectomy, Hernia Repair, Tonsillectomy Additional Past Surgical History / Comment(s): EGD x5. rt inguinal hernia repair. wisdom teeth bottom 2. Past Anesthesia/Blood Transfusion Reactions: Postoperative Nausea & Vomiting (P ONV) Additional Past Anesthesia/Blood Transfusion Reaction / Comment(s): last anesthesia nausea caused admit overnight Past Psychological History: ADD/ADHD, Anxiety, Depression Smoking Status: Never smoker Past Alcohol Use History: None Reported Past Drug Use History: None Reported - Past Family History Mother Family Medical History: Asthma, Hypertension Sister(s) Family Medical History: Thyroid Disorder Father Family Medical History: COPD, Coronary Artery Disease (CAD), Deep Vein Thrombosis (DVT) General Exam Limitations: no limitations General appearance: alert, in no apparent distress Head exam: Present: atraumatic, normocephalic, normal inspection Eye exam: Present: normal appearance, PERRL, EOMI. Absent: scleral icterus, conjunctival injection, periorbital swelling ENT exam: Present: normal exam, mucous membranes moist Neck exam: Present: normal inspection. Absent: tenderness, meningismus, lymphadenopathy Respiratory exam: Present: normal lung sounds bilaterally. Absent: respiratory distress, wheezes, rales, rhonchi, stridor Cardiovascular Exam: Present: regular rate, normal rhythm, normal heart sounds. Absent: systolic murmur, diastolic murmur, rubs, gallop, clicks GI/Abdominal exam: Present: soft, tenderness, normal bowel sounds. Absent: distended, guarding, rebound, rigid Extremities exam: Present: normal inspection, full ROM, normal capillary refill. Absent: tenderness, pedal edema, joint swelling, calf tenderness Back exam: Present: normal inspection Neurological exam: Present: alert, oriented X3 Psychiatric exam: Present: normal affect, normal mood Skin exam: Present: warm, dry, intact, normal color. Absent: rash Course Vital Signs 06/06/24 06/06/24 17:20 20:49 Temperature 97.7 F Pulse Rate 84 86 Respiratory 18 18 Rate Blood Pressure 112/67 108/72 O2 Sat by Pulse 99 97 Oximetry Medical Decision Making - Medical Decision Making Was pt. sent in by a medical professional or institution ([facility], [facility] ATTEND[facility], urgent care, hospital, or fpc...) When possible be specific @ -No Did you speak to anyone other than the patient for history (EMS, parent, family, police, friend...)? What history was obtained from this source @ -No Did you review nursing and triage notes (agree or disagree)? Why? @ -I reviewed and agree with nursing and triage notes Were old charts reviewed (outside hosp., previous admission, EMS record, old EKG, old radiological studies, urgent care reports/EKG's, fpc records)? Report findings @ -No old charts were reviewed Differential Diagnosis (chest pain, altered mental status, abdominal pain women, abdominal pain men, vaginal bleeding, weakness, fever, dyspnea, syncope, headache, dizziness, GI bleed, back pain, seizure, CVA, palpatations, mental health, musculoskeletal)? @ -Differential Abdominal Pain Women: Appendicitis, Cholecystitis, diverticulosis, ischemic bowel, pancreatitis, hepatitis, UTI, gastroenteritis, AAA, incarcerated hernia, bowel obstruction, constipation, inflammatory bowel, hepatitis, peptic ulcer disease, splenic infarction, perforated viscus, vulvitis, ovarian torsion, PID, kidney stone, placenta abruption, this is not meant to be an all-inclusive list EKG interpreted by me (3pts min.). @ -None X-rays interpreted by me (1pt min.). @ -None done CT interpreted by me (1pt min.). @ -None done U/S interpreted by me (1pt. min.). @ -Pelvic ultrasound obtained no evidence of ovarian torsion What testing was considered but not performed or refused? (CT, X-rays, U/S, labs)? Why? @ -None What meds were considered but not given or refused? Why? @ -None Did you discuss the management of the patient with other professionals (professionals i.e. [facility] [address], FURNACE ATTENDANT, lab, RT, psych nurse, social human services assistants, strategy manager, teacher, chief business officer, cyanide case hardener)? Give summary @ -No Was smoking cessation discussed for >3mins.? @ -No Was critical care preformed (if so, how long)? @ -No Were there social determinants of health that impacted care today? How? (Homel essness, low income, unemployed, alcoholism, drug addiction, transportation, low edu. Level, literacy, decrease access to med. care, senior care, rehab)? @ -No Was there de-escalation of care discussed even if they declined (Discuss DNR or withdrawal of care, Hospice)? DNR status @ -No What co-morbidities impacted this encounter? (DM, HTN, Smoking, COPD, CAD, Cancer, CVA, ARF, Chemo, Hep., AIDS, mental health diagnosis, sleep apnea, morbid obesity)? @ -None Was patient admitted / discharged? Hospital course, mention meds given and route, prescriptions, significant lab abnormalities, going to OR and other pertinent info. @ -Patient presented emergency department for evaluation of abdominal pain. Laboratory studies revealed no significant leukocytosis, hemoglobin 14.2; CMP is nonactionable UA shows 6 squamous cells but no other evidence of infectious process. Negative urine hCG. Negative for COVID, influenza, RSV. Patient underwent pelvic ultrasound which reveals no evidence of ovarian torsion. Patient will be discharged home. She is understanding agreeable with plan. Strict return precautions discussed. Patient stable at time of discharge. Case discussed with Dr. Castro Undiagnosed new problem with uncertain prognosis? @ -No Drug Therapy requiring intensive monitoring for toxicity (Heparin, Nitro, Insulin, Cardizem)? @ -No Were any procedures done? @ -No Diagnosis/symptom? @ -Abdominal pain Acute, or Chronic, or Acute on Chronic? @ -Acute Uncomplicated (without systemic symptoms) or Complicated (systemic symptoms)? @ -Uncomplicated Side effects of treatment? @ -No Exacerbation, Progression, or Severe Exacerbation? @ -No Poses a threat to life or bodily function? How? (Chest pain, USA, AR, pneumonia, PE, COPD, DKA, ARF, appy, cholecystitis, CVA, Diverticulitis, Homicidal, Suicidal, threat to staff... and all critical care pts) @ -No - Lab Data Result diagrams: 06/06/24 18:09 06/06/24 18:09 Lab Results 06/06/24 06/06/24 06/06/24 Range/Units 18: 18: 18: WBC 9.68 (4.50-10.00) 10*3/uL RBC 4.77 (4.10-5.20) 10*6/uL Hgb 14.2 (12.0-15.0) g/dL Hct 39.4 (37.2-46.3) % MCV 82.6 (80.0-97.0) fL MCH 29.8 (27.0-32.0) pg MCHC 36.0 (32.0-37.0) g/dL Plt Count 274 (140-440) 10*3/uL MPV 10.1 (9.5-12.2) fL Immature Gran % (Auto) 0.2 % Neutrophils % 67.9 % Lymphocytes % 26.7 % Monocytes % 4.3 % Eosinophils % 0.7 % Basophils % 0.2 % Immature Gran # 0.02 (0.00-0.04) 10*3/uL Neutrophils # 6.57 (1.80-7.70) 10*3/uL Lymphocytes # 2.58 (0.90-5.00) 10*3/uL Monocytes # 0.42 (0.20-1.00) 10*3/uL Eosinophils # 0.07 (0.04-0.35) 10*3/uL Basophils # 0.02 (0.00-0.10) 10*3/uL Sodium (137-145) mmol/L Potassium (3.5-5.1) mmol/L Chloride (98-107) mmol/L Carbon Dioxide (22-30) mmol/L Anion Gap mmol/L BUN (7-17) mg/dL Creatinine (0.52-1.04) mg/dL Est GFR (CKD-EPI)AfAm (>60 ml/min/1.73 sqM) Est GFR (CKD-EPI)NonAf (>60 ml/min/1.73 sqM) Glucose (74-99) mg/dL Calcium (8.4-10.2) mg/dL Total Bilirubin (0.2-1.3) mg/dL AST (14-36) U/L ALT (4-34) U/L Alkaline Phosphatase (38-126) U/L Total Protein (6.3-8.2) g/dL Albumin (3.5-5.0) g/dL Amylase (30-110) U/L Lipase (23-300) U/L Urine Color Yellow Urine Appearance Cloudy H (Clear) Urine pH 5.5 (5.0-8.0) Ur Specific [place] 1.049 H (1.001-1.035) Urine Protein Trace H (Negative) Urine Glucose (UA) Negative (Negative) Urine Ketones Negative (Negative) Urine Blood Negative (Negative) Urine Nitrite Negative (Negative) Urine Bilirubin Negative (Negative) Urine Urobilinogen <2.0 (<2.0) mg/dL Ur Leukocyte Esterase Negative (Negative) Urine WBC 3 (0-5) /hpf Ur Squamous Epith Cells 6 H (0-4) /hpf Urine Bacteria Rare H (None) /hpf Urine Mucus Many H (None) /hpf Urine HCG, Qual Not Detected (Not Detectd) Influenza Type A (PCR) (Not Detectd) Influenza Type B (PCR) (Not Detectd) RSV (PCR) (Not Detectd) SARS-CoV-2 (PCR) (Not Detectd) 06/06/24 06/06/24 Range/Units 18:09 20:15 WBC (4.50-10.00) 10*3/uL RBC (4.10-5.20) 10*6/uL Hgb (12.0-15.0) g/dL Hct (37.2-46.3) % MCV (80.0-97.0) fL MCH (27.0-32.0) pg MCHC (32.0-37.0) g/dL Plt Count (140-440) 10*3/uL MPV (9.5-12.2) fL Immature Gran % (Auto) % Neutrophils % % Lymphocytes % % Monocytes % % Eosinophils % % Basophils % % Immature Gran # (0.00-0.04) 10*3/uL Neutrophils # (1.80-7.70) 10*3/uL Lymphocytes # (0.90-5.00) 10*3/uL Monocytes # (0.20-1.00) 10*3/uL Eosinophils # (0.04-0.35) 10*3/uL Basophils # (0.00-0.10) 10*3/uL Sodium 139 (137-145) mmol/L Potassium 3.9 (3.5-5.1) mmol/L Chloride 103 (98-107) mmol/L Carbon Dioxide 22 (22-30) mmol/L Anion Gap 14 mmol/L BUN 15 (7-17) mg/dL Creatinine 0.69 (0.52-1.04) mg/dL Est GFR (CKD-EPI)AfAm >90 (>60 ml/min/1.73 sqM) Est GFR (CKD-EPI)NonAf >90 (>60 ml/min/1.73 sqM) Glucose 94 (74-99) mg/dL Calcium 9.9 (8.4-10.2) mg/dL Total Bilirubin 0.6 (0.2-1.3) mg/dL AST 33 (14-36) U/L ALT 24 (4-34) U/L Alkaline Phosphatase 69 (38-126) U/L Total Protein 8.1 (6.3-8.2) g/dL Albumin 4.9 (3.5-5.0) g/dL Amylase 40 (30-110) U/L Lipase 98 (23-300) U/L Urine Color Urine Appearance (Clear) Urine pH (5.0-8.0) Ur Specific [place] (1.001-1.035) Urine Protein (Negative) Urine Glucose (UA) (Negative) Urine Ketones (Negative) Urine Blood (Negative) Urine Nitrite (Negative) Urine Bilirubin (Negative) Urine Urobilinogen (<2.0) mg/dL Ur Leukocyte Esterase (Negative) Urine WBC (0-5) /hpf Ur Squamous Epith Cells (0-4) /hpf Urine Bacteria (None) /hpf Urine Mucus (None) /hpf Urine HCG, Qual (Not Detectd) Influenza Type A (PCR) Not Detected (Not Detectd) Influenza Type B (PCR) Not Detected (Not Detectd) RSV (PCR) Not Detected (Not Detectd) SARS-CoV-2 (PCR) Not Detected (Not Detectd) Disposition Clinical Impression: Abdominal pain, PCOS (polycystic ovarian syndrome) Disposition: HOME SELF-CARE Condition: Stable Instructions (If sedation given, give patient instructions): Abdominal Pain (ED) Additional Instructions: Please follow-up with 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 Return to the emergency department for new or worsening symptoms. Is patient prescribed a controlled substance at d/c from ED?: No Referrals: Douglas Overton MD [Primary Care Provider] - 1-2 days
[2024-06-06 18:34] LABS: Basophils # (A) 0.02 10*3/uL (0.00-0.10); Basophils % (A) 0.2 %; Eosinophils # (A) 0.07 10*3/uL (0.04-0.35); Eosinophils % (A) 0.7 %; HCT 39.4 % (37.2-46.3); HGB 14.2 g/dL (12.0-15.0); Lymphocytes # (A) 2.58 10*3/uL (0.90-5.00); Lymphocytes % (A) 26.7 %; MCH 29.8 pg (27.0-32.0); MCV 82.6 fL (80.0-97.0); Mean Platelet Volume 10.1 fL (9.5-12.2); Monocytes # (A) 0.42 10*3/uL (0.20-1.00); Monocytes % (A) 4.3 %; Neutrophils # (A) 6.57 10*3/uL (1.80-7.70); Neutrophils % (A) 67.9 %; Platelet Count 274 10*3/uL (140-440); RBC 4.77 10*6/uL (4.10-5.20); RDW 12.4 % (11.5-14.5); WBC 9.68 10*3/uL (4.50-10.00)
[2024-06-06] MEDS: SODIUM CHLORIDE 0.9% 1,000 ML IV ONE (18:34)
[2024-06-06] MEDS: ONDANSETRON 4 MG/2 ML VIAL IVP STA (18:34)
[2024-06-06 18:41] LABS: ALT 24 U/L (4-34); AST 33 U/L (14-36); African American GFR (CKD) >90 (>60 ml/min/1.73 sqM); Albumin 4.9 g/dL (3.5-5.0); Alkaline Phosphatase 69 U/L (38-126); Amylase 40 U/L (30-110); Anion Gap 14 mmol/L; Blood Urea Nitrogen 15 mg/dL (7-17); Calcium 9.9 mg/dL (8.4-10.2); Carbon Dioxide 22 mmol/L (22-30); Chloride 103 mmol/L (98-107); Glucose 94 mg/dL (74-99); Lipase 98 U/L (23-300); Non-African American GFR(CKD) >90 (>60 ml/min/1.73 sqM); Potassium 3.9 mmol/L (3.5-5.1); Sodium 139 mmol/L (137-145); Total Bilirubin 0.6 mg/dL (0.2-1.3); Total Protein 8.1 g/dL (6.3-8.2)
[2024-06-06 18:43] LABS: Appearance,Urine Cloudy (Clear); Bacteria,Urine Rare /hpf; Bilirubin,Urine Negative (Negative); Blood,Urine Negative (Negative); Color,Urine Yellow; Glucose,Urine (UA) Negative (Negative); Ketones,Urine Negative (Negative); Leukocyte Esterase,Urine Negative (Negative); Mucus,Urine Many /hpf; Nitrite,Urine Negative (Negative); PH, Urine 5.5 (5.0-8.0); Protein,Urine Trace (Negative); Squamous Epithelial Cell,Urine 6 /hpf (0-4); Urobilinogen,Urine <2.0 mg/dL (<2.0); WBC,Urine 3 /hpf (0-5)
[2024-06-06 19:14] LABS: Specific Gravity,Urine 1.049 (1.001-1.035)
--- NOTE | 2024-06-06 20:24 | US ---
EXAMINATION TYPE: US transvaginal DATE OF EXAM: 06/06/2024 COMPARISON: NONE CLINICAL INDICATION: Female, 23 years old with history of pain; patient states lower abd pain all day with nausea and vomiting. Hx PCOS and C sect TECHNIQUE: Transvaginal (TV). Transvaginal sonographic images were medically necessary to better assess the following anatomy: Ovar ies Doppler imaging: Color Doppler Images were obtained. Spectral doppler images were obtained. FINDINGS: Date of LMP: 05/19/2024 EXAM MEASUREMENTS: Uterus: 6.9 x 4.4 x 4.8cm Endometrial Stripe: 1.2 cm Right Ovary: 3.4 x 2.7 x 2.2 cm Left Ovary: 3.2 x 2.1 x 1.9 cm 1. Uterus: Anteverted wnl 2. Endometrium: wnl 3. Right Ovary: peripheral follicles seen 4. Left Ovary: peripheral follicles seen Spectral, color and waveform doppler imaging shows good arterial and venous flow within the ovaries ; there is no evidence for ovarian torsion. 5. Bilateral Adnexa: small amount of ff seen in the right adnexa adjacent to the ovary 6. Posterior cul-de-sac: wnl IMPRESSION: Small amount of fluid adjacent to the right adnexa. Tiny follicles noted. O-RADS 2021 [email or web address] [facility], , 06/06/2024 8:22 PM
[2024-06-06 20:52] VITALS: BP 108/72; PULSE 86
[2024-06-06 21:05] LABS: Influenza A Not Detected (Not Detectd); Influenza B Not Detected (Not Detectd); RSV Not Detected (Not Detectd)
== END 2024-06-06 20:52 | disposition home or self-care (01) ==
LOC: EC 17:17
DX: E28.2 Polycystic ovarian syndrome (principal); Z91.040 Latex allergy status; Z88.5 Allergy status to narcotic agent; Z91.048 Other nonmedicinal substance allergy status
CPT/HCPCS: 36415; 80053; 82150; 83690; 85025; 81001; 81025; 87636; 93975; 76830; 99284; 96374; 96361; J2405

== ENCOUNTER 2024-06-07 10:38 | Emergency (ER) | payer OTHER ==
[2024-06-07 12:09] LABS: Appearance,Urine Cloudy (Clear); Bacteria,Urine Occasional /hpf; Bilirubin,Urine Negative (Negative); Blood,Urine Trace (Negative); Color,Urine Yellow; Glucose,Urine (UA) Negative (Negative); Ketones,Urine Negative (Negative); Leukocyte Esterase,Urine Negative (Negative); Mucus,Urine Occasional /hpf; Nitrite,Urine Negative (Negative); PH, Urine 5.5 (5.0-8.0); Protein,Urine Negative (Negative); RBC,Urine 1 /hpf (0-5); Specific Gravity,Urine 1.028 (1.001-1.035); Squamous Epithelial Cell,Urine 12 /hpf (0-4); Urobilinogen,Urine <2.0 mg/dL (<2.0); WBC,Urine 3 /hpf (0-5)
--- NOTE | 2024-06-07 12:09 | ED ---
General Adult HPI - General Chief complaint: Nausea/Vomiting/Diarrhea Stated complaint: abd pain Time Seen by Provider: 06/07/24 11:15 Source: patient, family, RN notes reviewed, old records reviewed Mode of arrival: ambulatory Limitations: no limitations - History of Present Illness Initial comments: 23-year-old female presented to the ER for evaluation of nausea, vomiting and diarrhea. Patient reports yesterday she started to experience right lower quadrant abdominal discomfort. Patient does have a history of PCOS and contacted OB who instructed her to come to the emergency department to rule out ovarian torsion. Ultrasound at that time negative patient was subsequently sent home. Patient reports RLQ pain has continued and she now is endorsing mild radiation to her right flank. Patient reports continued nausea, vomiting and di arrhea. She denies any hematic emesis, coffee ground emesis, hematochezia or melena. She has taken OTC tylenol and prescribed Zofran for nausea without relief of symptoms. She denies any fevers, chills, chest pain, shortness of breath, hematuria or urinary complaints. Patient denies any abnormal vaginal bleeding or discharge. No concern of STDs. Patient reports her last menstrual cycle started on 05-19-2024. No other complaints. - Related Data Home Medications Medication Instructions Recorded Confirmed Aspirin 81 mg PO DAILY 04/03/23 05/29/23 Vit No.179/Iron/Folic 1 tab PO DAILY 04/03/23 05/29/23 [ Tablet] ursodioL [Ursodiol] 300 mg PO TID 04/20/23 05/29/23 Iron 1 capsule PO DAILY 05/15/23 05/29/23 Previous Rx's Medication Instructions Recorded Acetaminophen Tab [Tylenol] 650 mg PO Q6H PRN #30 tab 06/01/23 Ibuprofen [Motrin] 600 mg PO Q6HR PRN #30 tab 06/01/23 Ondansetron Odt [Zofran Odt] 4 mg PO Q8HR PRN #10 tab 06/07/24 Allergies Allergy/AdvReac Type Severity Reaction Status Date / Time latex Allergy Rash/Hives Verified 06/06/24 17:24 morphine Allergy Rash/Hives Verified 06/06/24 17:24 tramadol Allergy Nausea & Verified 06/06/24 17:24 Vomiting cigarette smoke AdvReac Unknown Verified 06/06/24 17:24 Review of Systems ROS Statement: Those systems with pertinent positive or pertinent negative responses have been documented in the HPI. ROS Other: All systems not noted in ROS Statement are negative. Past Medical History Past Medical History: Asthma, GERD/Reflux, Osteoarthritis (OA) Additional Past Medical History / Comment(s): hx stomach ulcers, UTI, kidney stones, kidney infection. per pt tachycardia chest pain tightness and n/v 180 at times. recently had holter monitor removed, irregular as well per pt. 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 OA to rt knee. hx fx to left ankle and rt knee. bilateral lower leg edema. History of Any Multi-Drug Resistant Organisms: None Reported Past Surgical History: Adenoidectomy, Cholecystectomy, Hernia Repair, Tonsillectomy Additional Past Surgical History / Comment(s): EGD x5. rt inguinal hernia repair. wisdom teeth bottom 2. Past Anesthesia/Blood Transfusion Reactions: Postoperative Nausea & Vomiting (PONV) Additional Past Anesthesia/Blood Transfusion Reaction / Comment(s): last anesthesia nausea caused admit overnight Past Psychological History: ADD/ADHD, Anxiety, Depression Smoking Status: Never smoker Past Alcohol Use History: None Reported Past Drug Use History: None Reported - Past Family History Mother Family Medical History: Asthma, Hypertension Sister(s) Family Medical History: Thyroid Disorder Father Family Medical History: COPD, Coronary Artery Disease (CAD), Deep Vein Thrombosis (DVT) General Exam Limitations: no limitations General appearance: alert, in no apparent distress Respiratory exam: Present: normal lung sounds bilaterally. Absent: respiratory distress, wheezes, rales, rhonchi, stridor Cardiovascular Exam: Present: regular rate, normal rhythm, normal heart sounds. Absent: systolic murmur, diastolic murmur, rubs, gallop, clicks GI/Abdominal exam: Present: soft, tenderness (RLQ), normal bowel sounds Extremities exam: Present: normal inspection, full ROM, normal capillary refill. Absent: tenderness, pedal edema, joint swelling, calf tenderness Back exam: Present: other (No CVA tenderness bilaterally) Neurological exam: Present: alert, oriented X3, CN II-XII intact Skin exam: Present: warm, dry, intact, normal color. Absent: rash Course Vital Signs 06/07/24 06/07/24 10:44 13:50 Temperature 98.2 F 98.5 F Pulse Rate 90 72 Respiratory 18 16 Rate Blood Pressure 108/74 111/71 O2 Sat by Pulse 98 100 Oximetry Medical Decision Making - Medical Decision Making Was pt. sent in by a medical professional or institution (, [facility] [employer], urgent care, hospital, or custodial...) When possible be specific @ -No Did you speak to anyone other than the patient for history (EMS, parent, family, police, friend...)? What history was obtained from this source @ -No Did you review nursing and triage notes (agree or disagree)? Why? @ -I reviewed and agree with nursing and triage notes Were old charts reviewed (outside hosp., previous admission, EMS record, old EKG, old radiological studies, urgent care reports/EKG's, custodial records)? Report findings @ -Yes, I reviewed ER visit from 06 06 24. Patient seen and evaluated for right lower quadrant abdominal pain. Transvaginal ultrasound at that time negative for evidence of ovarian torsion. Studies unremarkable Differential Diagnosis (chest pain, altered mental status, abdominal pain women, abdominal pain men, vaginal bleeding, weakness, fever, dyspnea, syncope, headache, dizziness, GI bleed, back pain, seizure, CVA, palpatations, mental health, musculoskeletal)? @ -Differential Abdominal Pain Women:Appendicitis, Cholecystitis, diverticulosis, ischemic bowel, pancreatitis, hepatitis, UTI, gastroenteritis, AAA, incarcerated hernia, bowel obstruction, constipation, inflammatory bowel, hepatitis, peptic ulcer disease, splenic infarction, perforated viscus, vulvitis, ovarian torsion, PID, kidney stone, placenta abruption, this is not meant to be an all-inclusive list EKG interpreted by me (3pts min.). @ -None done X-rays interpreted by me (1pt min.). @ -None done CT interpreted by me (1pt min.). @ -CT abdomen pelvis negative for acute intra-abdominal process. Normal appendix U/S interpreted by me (1pt. min.). @ -None done What testing was considered but not performed or refused? (CT, X-rays, U/S, l abs)? Why? @ -None What meds were considered but not given or refused? Why? @ -None Did you discuss the management of the patient with other professionals (professionals i.e. , [facility], [employer], lab, RT, psych nurse, social worker health services, staff design engineer, teacher, plant protection officer, case hardener)? Give summary @ -No Was smoking cessation discussed for >3mins.? @ -No Was critical care preformed (if so, how long)? @ -No Were there social determinants of health that impacted care today? How? (Homelessness, low income, unemployed, alcoholism, drug addiction, transportation, low edu. Level, literacy, decrease access to med. care, half-way, rehab)? @ -No Was there de-escalation of care discussed even if they declined (Discuss DNR or withdrawal of care, Hospice)? DNR status @ -No What co-morbidities impacted this encounter? (DM, HTN, Smoking, COPD, CAD, Cancer, CVA, ARF, Chemo, Hep., AIDS, mental health diagnosis, sleep apnea, morbid obesity)? @ -PCOS Was patient admitted / discharged? Hospital course, mention meds given and route, prescriptions, significant lab abnormalities, going to OR and other pertinent info. @ -Discharged. 23 year old female presenting to the ER for evaluation of RLQ abdominal pain. Vitals stable. Upon my evaluation, patient had no signs of acute distress resting comfortably on stretcher. There is focal tenderness to the right lower quadrant. No right CVA tenderness. No overlying skin changes. No rebound tenderness or guarding. Laboratory studies along with CT abdomen pelvis will be obtained. Patient provided symptomatic treatment with IV fluids, Zofran and Toradol. Laboratory studies obtained unremarkable. WBC 8.07, lactic 0.7. Serum hCG <2.4. No significant electrolyte abnormality. Urinalysis with occasional bacteria sample is contaminated with [address] abdomen pelvis negative for acute intra-abdominal process, normal appendix. Upon r eevaluation, patient resting comfortably on stretcher no signs of acute distress. Results discussed with patient, all questions answered. Patient will be discharged with a starter pack Lomotil and advised to continue taking [id number] ibuprofen and Tylenol along with Zofran, prescribed, for symptom control. I advised her to follow-up closely with PCP. Patient discharged in stable condition. Patient verbally expressed understanding and agreement with care plan. Case discussed with ED attending, Dr. Mattson. Undiagnosed new problem with uncertain prognosis? @ -No Drug Therapy requiring intensive monitoring for toxicity (Heparin, Nitro, Insulin, Cardizem)? @ -No Were any procedures done? @ -No Diagnosis/symptom? @ -Nausea, vomiting and diarrhea/abdominal pain Acute, or Chronic, or Acute on Chronic? @ -Acute Uncomplicated (without systemic symptoms) or Complicated (systemic symptoms)? @ -Uncomplicated Side effects of treatment? @ -No Exacerbation, Progression, or Severe Exacerbation? @ -No Poses a threat to life or bodily function? How? (Chest pain, [place], [place], pneumonia, PE, COPD, DKA, ARF, appy, cholecystitis, CVA, Diverticulitis, Homicidal, Suicidal, threat to staff... and all critical care pts) @ -Low - Lab Data Result diagrams: 06/07/24 12:05 06/07/24 12:05 Lab Results 06/07/24 06/07/24 06/07/24 Range/Units 11:52 12:05 12:05 WBC 8.07 (4.50-10.00) 10*3/uL RBC 4.43 (4.10-5.20) 10*6/uL Hgb 13.2 (12.0-15.0) g/dL Hct 36.7 L (37.2-46.3) % MCV 82.8 (80.0-97.0) fL MCH 29.8 (27.0-32.0) pg MCHC 36.0 (32.0-37.0) g/dL Plt Count 264 (140-440) 10*3/uL MPV 10.4 (9.5-12.2) fL Immature Gran % (Auto) 0.1 % Neutrophils % 70.6 % Lymphocytes % 21.7 % Monocytes % 5.8 % Eosinophils % 1.7 % Basophils % 0.1 % Immature Gran # 0.01 (0.00-0.04) 10*3/uL Neutrophils # 5.69 (1.80-7.70) 10*3/uL Lymphocytes # 1.75 (0.90-5.00) 10*3/uL Monocytes # 0.47 (0.20-1.00) 10*3/uL Eosinophils # 0.14 (0.04-0.35) 10*3/uL Basophils # 0.01 (0.00-0.10) 10*3/uL Sodium 139 (137-145) mmol/L Potassium 4.2 (3.5-5.1) mmol/L Chloride 106 (98-107) mmol/L Carbon Dioxide 21 L (22-30) mmol/L Anion Gap 12 mmol/L BUN 12 (7-17) mg/dL Creatinine 0.67 (0.52-1.04) mg/dL Est GFR (CKD-EPI)AfAm >90 (>60 ml/min/1.73 sqM) Est GFR (CKD-EPI)NonAf >90 (>60 ml/min/1.73 sqM) Glucose 83 (74-99) mg/dL Plasma Lactic Acid Alexandr (0.7-2.0) mmol/L Calcium 9.2 (8.4-10.2) mg/dL Total Bilirubin 0.8 (0.2-1.3) mg/dL AST 28 (14-36) U/L ALT 22 (4-34) U/L Alkaline Phosphatase 63 (38-126) U/L Total Protein 7.5 (6.3-8.2) g/dL Albumin 4.6 (3.5-5.0) g/dL Lipase 67 (23-300) U/L HCG, Quant <2.4 mIU/mL Urine Color Yellow Urine Appearance Cloudy H (Clear) Urine pH 5.5 (5.0-8.0) Ur Specific [place] 1.028 (1.001-1.035) Urine Protein Negative (Negative) Urine Glucose (UA) Negative (Negative) Urine Ketones Negative (Negative) Urine Blood Trace H (Negative) Urine Nitrite Negative (Negative) Urine Bilirubin Negative (Negative) Urine Urobilinogen <2.0 (<2.0) mg/dL Ur Leukocyte Esterase Negative (Negative) Urine RBC 1 (0-5) /hpf Urine WBC 3 (0-5) /hpf Ur Squamous Epith Cells 12 H (0-4) /hpf Urine Bacteria Occasional H (None) /hpf Urine Mucus Occasional H (None) /hpf 06/07/24 Range/Units 12:05 WBC (4.50-10.00) 10*3/uL RBC (4.10-5.20) 10*6/uL Hgb (12.0-15.0) g/dL Hct (37.2-46.3) % MCV (80.0-97.0) fL MCH (27.0-32.0) pg MCHC (32.0-37.0) g/dL Plt Count (140-440) 10*3/uL MPV (9.5-12.2) fL Immature Gran % (Auto) % Neutrophils % % Lymphocytes % % Monocytes % % Eosinophils % % Basophils % % Immature Gran # (0.00-0.04) 10*3/uL Neutrophils # (1.80-7.70) 10*3/uL Lymphocytes # (0.90-5.00) 10*3/uL Monocytes # (0.20-1.00) 10*3/uL Eosinophils # (0.04-0.35) 10*3/uL Basophils # (0.00-0.10) 10*3/uL Sodium (137-145) mmol/L Potassium (3.5-5.1) mmol/L Chloride (98-107) mmol/L Carbon Dioxide (22-30) mmol/L Anion Gap mmol/L BUN (7-17) mg/dL Creatinine (0.52-1.04) mg/dL Est GFR (CKD-EPI)AfAm (>60 ml/min/1.73 sqM) Est GFR (CKD-EPI)NonAf (>60 ml/min/1.73 sqM) Glucose (74-99) mg/dL Plasma Lactic Acid Alexandr 0.7 (0.7-2.0) mmol/L Calcium (8.4-10.2) mg/dL Total Bilirubin (0.2-1.3) mg/dL AST (14-36) U/L ALT (4-34) U/L Alkaline Phosphatase (38-126) U/L Total Protein (6.3-8.2) g/dL Albumin (3.5-5.0) g/dL Lipase (23-300) U/L HCG, Quant mIU/mL Urine Color Urine Appearance (Clear) Urine pH (5.0-8.0) Ur Specific [place] (1.001-1.035) Urine Protein (Negative) Urine Glucose (UA) (Negative) Urine Ketones (Negative) Urine Blood (Negative) Urine Nitrite (Negative) Urine Bilirubin (Negative) Urine Urobilinogen (<2.0) mg/dL Ur Leukocyte Esterase (Negative) Urine RBC (0-5) /hpf Urine WBC (0-5) /hpf Ur Squamous Epith Cells (0-4) /hpf Urine Bacteria (None) /hpf Urine Mucus (None) /hpf - Radiology Data Radiology results: report reviewed, image reviewed Disposition Clinical Impression: Abdominal pain Disposition: HOME SELF-CARE Condition: Stable Instructions (If sedation given, give patient instructions): Acute Diarrhea (ED), Abdominal Pain (ED) Additional Instructions: Follow-up with PCP. You may take Zofran for nausea and Lomotil for diarrhea. Take these as prescribed. Return to the ER for any new or worsening concerns. Prescriptions: Ondansetron Odt [Zofran Odt] 4 mg PO Q8HR PRN #10 tab PRN Reason: Nausea Is patient prescribed a controlled substance at d/c from ED?: No Referrals: Douglas Overton MD [Primary Care Provider] - 1-2 days Time of Disposition: 13:41
[2024-06-07] MEDS: KETOROLAC 15 MG/ML 1 ML VIAL IVP STA (12:16)
[2024-06-07] MEDS: SODIUM CHLORIDE 0.9% 1,000 ML IV ONE (12:17)
[2024-06-07 12:18] LABS: Basophils # (A) 0.01 10*3/uL (0.00-0.10); Basophils % (A) 0.1 %; Eosinophils # (A) 0.14 10*3/uL (0.04-0.35); Eosinophils % (A) 1.7 %; HCT 36.7 % (37.2-46.3); HGB 13.2 g/dL (12.0-15.0); Lymphocytes # (A) 1.75 10*3/uL (0.90-5.00); Lymphocytes % (A) 21.7 %; MCH 29.8 pg (27.0-32.0); MCV 82.8 fL (80.0-97.0); Mean Platelet Volume 10.4 fL (9.5-12.2); Monocytes # (A) 0.47 10*3/uL (0.20-1.00); Monocytes % (A) 5.8 %; Neutrophils # (A) 5.69 10*3/uL (1.80-7.70); Neutrophils % (A) 70.6 %; Platelet Count 264 10*3/uL (140-440); RBC 4.43 10*6/uL (4.10-5.20); RDW 12.4 % (11.5-14.5); WBC 8.07 10*3/uL (4.50-10.00)
[2024-06-07 12:29] LABS: ALT 22 U/L (4-34); AST 28 U/L (14-36); African American GFR (CKD) >90 (>60 ml/min/1.73 sqM); Albumin 4.6 g/dL (3.5-5.0); Alkaline Phosphatase 63 U/L (38-126); Anion Gap 12 mmol/L; Blood Urea Nitrogen 12 mg/dL (7-17); Calcium 9.2 mg/dL (8.4-10.2); Carbon Dioxide 21 mmol/L (22-30); Chloride 106 mmol/L (98-107); Glucose 83 mg/dL (74-99); Lipase 67 U/L (23-300); Non-African American GFR(CKD) >90 (>60 ml/min/1.73 sqM); Potassium 4.2 mmol/L (3.5-5.1); Sodium 139 mmol/L (137-145); Total Bilirubin 0.8 mg/dL (0.2-1.3); Total Protein 7.5 g/dL (6.3-8.2)
[2024-06-07 12:45] LABS: HCG,Quantitative Serum <2.4 mIU/mL
[2024-06-07] MEDS: ONDANSETRON 4 MG/2 ML VIAL IVP STA (13:05)
--- NOTE | 2024-06-07 13:17 | CT ---
EXAMINATION TYPE: CT abdomen pelvis w con CT DLP: 1002 mGycm, Automated exposure control for dose reduction was used. DATE OF EXAM: 06/07/2024 1:09 PM COMPARISON: Ultrasound transvaginal 06/06/2024, CT abdomen and pelvis 09/08/2019, 05/23/2018 CLINICAL INDICATION:Female, 23 years old with history of RLQ abd pain; RLQ PAIN TECHNIQUE: Standard CT of the abdomen and pelvis following the administration of 100 cc of Isovue 3 00 IV contrast material. Coronal and sagittal reformats were performed. FINDINGS: LOWER CHEST: Unremarkable ABDOMEN LIVER: Unremarkable GALLBLADDER AND BILE DUCTS: Unremarkable. PANCREAS: Unremarkable. SPLEEN: Unremarkable. ADRENAL GLANDS: Unremarkable. KIDNEYS AND URETERS: No evidence of hydronephrosis or renal calculus. The kidneys enhance symmetrical ly. Right renal upper pole 1 cm simple cyst. A follow up recommended. Contrast allergy within both co llecting systems on the delayed phase. PELVIS BLADDER: Unremarkable REPRODUCTIVE: Unremarkable. ABDOMEN & PELVIS STOMACH AND BOWEL: Stomach and duodenum are unremarkable. No focal bowel wall thickening or surroundi ng inflammatory changes. The appendix is within normal limits. No evidence of bowel obstruction. PERITONEUM: No evidence of pneumoperitoneum or free fluid. VASCULATURE: No evidence of aortic aneurysm. MUSCULOSKELETAL: No acute osseous abnormalities LYMPH NODES: No evidence for lymphadenopathy greater than 1 cm short axis. SOFT TISSUE/ABDOMINAL WALL: Unremarkable IMPRESSION: No CT evidence for acute abdominal/pelvic process. The appendix is within normal limits. [facility], , 06/07/2024 1:15 PM
[2024-06-07] MEDS: DIPHENOX-ATROP STARTER PACK 8 TAB BTL PO STA (13:47)
[2024-06-07 13:51] VITALS: BP 111/71; PULSE 72; RESP 16; TEMP 98.5
== END 2024-06-07 13:52 | disposition home or self-care (01) ==
LOC: EC 10:38
DX: R10.31 Right lower quadrant pain (principal); R11.2 Nausea with vomiting, unspecified; R19.7 Diarrhea, unspecified; Z88.5 Allergy status to narcotic agent; Z91.040 Latex allergy status; Z91.048 Other nonmedicinal substance allergy status
CPT/HCPCS: 36415; 80053; 83605; 83690; 85025; 81001; 84702; 74177; 99285; 96374; 96375; 96361; J2405; J1885; Q9967